=== PATIENT | female | born 1950 | race Caucasian/White ===

== ENCOUNTER 2019-06-08 09:14 | Observation (INO) | payer MEDICARE, MEDICAID, SELFPAY ==
[2019-06-01 10:05] VITALS: BMI 32.2
--- NOTE | 2019-06-01 10:39 | ECG_ITS ---
Measurements Intervals [place] Rate: 96 P: 36 CA: 152 QRS: -4 QRSD: 86 T: 79 QT: 356 QTc: 450 SINUS RHYTHM POSSIBLE ANTERIOR MYOCARDIAL INFARCTION [30 ms Q WAVE IN V3/V4, OR R < 0.2 mV IN V4], OF INDETERMINATE AGE INFERIOR MYOCARDIAL INFARCTION [40+ ms Q WAVE AND/OR ST/T ABNORMALITY IN II/aVF], PROBABLY OLD Compared to ECG 11/26/2018 20:53:25 Sinus tachycardia no longer present Myocardial infarct finding still present Electronically Signed On 06-01-2019 21:00:25 MATERIALS PLANNING MANAGER by Carie Lucio M.D. [id number]
--- NOTE | 2019-06-01 11:04 | ANES.PREANE2 ---
Pre-Anesthetic Assessment Pre-Anesthetic Assessment: Height/Weight: Height 1.63 m Weight 85.275 kg Preop Diagnosis: left knee end stage DJD Proposed Procedure: Operation Date: 06/08/19 07:00 Proposed Procedures p Total Knee Arthroplasty 94256 M17.12(Left) - Clyde Carvajal MD Social: Packs per day: 1.5 Pack years: 75 Comment: quit 10 y Exam: Pre-Anes Outpt Exam: alert, oriented x 3, clear to auscultation bilaterally and regular rate & rhythm Airway: Submandibular: WNL Cervical ROM: Other MP: 3 Dentition: False Additional comments: very limited NE CV/HEM: CV/HEM: CAD Comments: s/p stent '17 GI: GI: GERD Metabolic: Metabolic: Thyroid Comments: x 10y rx'd for DM x 10y, normally 150-200 Musc/skel: Musc/skel: Lower Back Pain Neuropsych: Neuropsych: GATICA Anesthetic Plan: ASA status: III Anesthesia: General and Regional (specify below) Other: left adductor canal block Data Anesthesia Cardiac Studies: No Data to Display
[2019-06-01 11:09] LABS: Anion Gap 19.1 (5-19); Blood Urea Nitrogen 14 mg/dL (8-23); Carbon Dioxide 26 mmol/L (22-29); Chloride 91 mmol/L (98-107); Glomerular Filtration Rate 54.8 mL/min (90-130); Glucose 346 mg/dL (74-106); Osmolality Calculated 284 mOsm/kg (285-295); Potassium 4.1 mmol/L (3.5-5.1); Sodium 132 mmol/L (136-145)
--- NOTE | 2019-06-07 14:34 | P.HPUD_ITS ---
H&P update H&P Update: DATE OF SURGERY/PROCEDURE: 06/08/19 DATE H&P PERFORMED: 02/15 PREOP DIAGNOSIS: left knee end stage DJD PLANNED PROCEDURE: Operation Date: 06/08/19 07:00 Proposed Procedures p Total Knee Arthroplasty 05983 M17.12(Left) - Clyde Carvajal MD Full H&P HPI: PLANNED PROCEDURE: L TKA HPI: 69 yo with OA left knee. Has failed conservative measures including medications and injections. Pain limits activity. Forced to hold on to objcts around house for stability. Scheduled for elective Left Total Knee Arthroplasty ROS: ROS: No chest pain, SOB or palpitations No dysuria or pyuria No history atypical bleeding or DVT/PE Perinent History: Medical/Surgical History: CAD s/p stent placement 2017 DM GERD Family History: Non contributory Pertinent Exam Findings: PHYSICAL EXAM: alert, oriented x 3 and operative site marked OTHER PERTINENT EXAM FINDINGS: Heart: nl heart sounds Chest: CTA ABdomen: Soft NT Left knee painful ROM. Tender medial joint No distal left neurovascular deficits noted Pertinent Data: PERTINENT DATA: MRI from Apr 08, 2019 with predominantly degenerative change. A&P Assessment and plan (1) Osteoarthritis of left knee: Procede with left total knee as scheduled Status: Acute Code(s): M17.12 - Unilateral primary osteoarthritis, left knee (2) Diabetes: Manage insulin with sliding scale untll ready for discharge Status: Acute Code(s): E11.9 - Type 2 diabetes mellitus without complications (3) Coronary artery disease: Status: Acute Code(s): I25.10 - Atherosclerotic heart disease of [place] coronary artery without angina pectoris (4) Chronic narcotic use: With history of Eleanor use anticipate some dificulty with pain control Status: Acute Code(s): F11.90 - Opioid use, unspecified, uncomplicated
[2019-06-08] VITALS (28 sets, daily range): BP systolic 105–168; BP diastolic 64–115; PULSE 72–107; RESP 12–20; TEMP 36.4–37.2; O2SAT 91–98
[2019-06-08 05:50] LABS: Glucose Point of Care 215 mg/dL (70-110)
--- NOTE | 2019-06-08 05:56 | P.ANESUD_ITS ---
Pre-Anesthetic Update Pre-Anesthetic Assessment: Date of Surgery/Procedure: 06/08/19 Preop Janessa gnosis: left knee end stage DJD Proposed Procedure: Operation Date: 06/08/19 07:00 Proposed Procedures p Total Knee Arthroplasty 07731 M17.12(Left) - Clyde Carvajal MD Last Intake: Intake Last Liquid Date 06/07/19 Last Liquid Time 20:00 Last Solid Date 06/07/19 Last Solid Time 18:00 Labs Last 48hrs: Laboratory Results - last 48 hr 06/08/19 05:43 POC Glucose 215 Vitals: Temperature 98.9 F 06/08/19 05:35 Temperature Source Temporal Artery S can 06/08/19 05:35 Pulse Rate 88 06/08/19 05:35 Respiratory Rate 18 06/08/19 05:35 Blood Pressure 168/88 06/08/19 05:35 Blood Pressure [place] n 114 06/08/19 05:35 Pulse Oximetry 98 06/08/19 05:35 Oxygen Delivery Me thod 06/08/19 05:35 Cardiac Studies: No Data to Display
[2019-06-08] MEDS: sodium chloride 0.9% 1,000 ML 30 ML IV (06:05)
[2019-06-08] MEDS: midazolam 1 mg/mL INJ 5 ML 5 MG IVP (06:10)
[2019-06-08] MEDS: fentaNYL 50 mcg/mL INJ 2mL 100 MCG IVP (06:10)
--- NOTE | 2019-06-08 06:14 | ANES.PROC ---
Anesthesia Procedures Procedure/Date: 06/08/19 Nerve Block ^: Nerve Block 1: Main Anesthesia: general anesthesia Time Out Performed: Yes Consent: requested by attending/covering physician, risks and benefits reviewed and patient agrees to proceed Nerve block location: adductor canal (left) Anesthesia monitors applied: pulse oximetry, EKG, BP cuff and oxygen Nerve block position: supine Anesthetic Used: ropivicaine 0.5% and with decadron (4 mg) Amount of anesthesia used (mL): 30 Ultrasound used to: recognize landmarks Nerve Stimulator Used?: No Interscalene/Femoral BLK: 4 stimuplex 21 g needle used for position and inplane approach, visualize local anesthetic spread and no vascular puncture identified Injection: neg aspiration of heme and paresthesia +/- (neg) Patient Tolerated Procedure: well and no complications Complications: none
[2019-06-08] MEDS: ketorolac 30 mg/mL INJ IM (07:55)
[2019-06-08] MEDS: EPINEPHrine 1 mg/mL INJ XX (07:55)
[2019-06-08] MEDS: tranexamic acid 1,000 mg/10mL SDV 2000 MG IRRIGATION (07:57)
--- NOTE | 2019-06-08 08:33 | PM.OP ---
Operative Report Date of procedure: June 08, 2019 Pre-op Diagnosis: left knee end stage DJD Post-op diagnosis: same Post-op Findings: Same Procedure Done: Left total knee arthroplasty Implants: Yinka total knee arthroplasty components were used includin) Size 2 triathalon cruciate retaining femoral component 2) Size 2 Tritanium tibial component 3) 29 mm /9 mm thickness Tritanium asymetric patella 4) Size 2/9 mm thickness CR tibial bearing insert Pathology: none sent Surgeon: Clyde Carvajal Anesthesia: General and Nerve Block (Interscalene) Estimated blood loss (mL): 200 Tourniquet time (min): 27 Complications: None Findings: The patient had eburnated exposed subchondral bone over the medial femoral condyle and patella Condition: stable Disposition: PACU Brief History: See history and physical Procedure: The patient was taken to the operating room. Patient was given 1 g of tranexamic acid . The above anesthesia provided by the anesthesia service. A timeout was performed. The patient was prepped and draped in the usual fashion with the lower extremity exposed. A anterior incision was made, midline, from a point proximal to the patella to the distal tibial tubercle. Dissection was accomplished through the subcutaneous fat to the extensor mechanism. The vastus medialis oblique is musculature was elevated with a retractor and a capsular incision made from the medial patella along the patellar tendon up into the superior capsule. The patella could be displaced laterally and the knee flexed. The patellar fat pad was resected to provide better visibility. Retractors were placed medially and laterally adjacent to the tibial plateau. The femoral canal was drilled in line with the longitudinal axis of the femur. Intramedullary femoral guide for used to make a distal femoral cut in 5 degrees of valgus, resecting 8 mm from the more prominent condyle. Next the extra medullary tibial guide was placed in alignment with the longitudinal axis of the tibia. The cutting guides were set to remove just over 9 mm from the high tibial plateau. The proximal tibia was then cut. The femoral measuring guide was then placed over the distal femur. Rotation was verified checking the relationship of the guide to the condyle and the trochlear groove. The femur was measured and cut for the desired femoral component. The desired tibial baseplate was then chosen. A trial reduction with the femur tibial baseplate and polyethylene was done, assuring that the knee was stable throughout full motion. Ligament balancing involved release of nothing more than the deep medial collateral.The tibia was prepared for the tibial baseplate. Patellar thickness was then measured. The patella was cut removing articular cartilage and prepared for appropriate size patellar button. All surfaces were cleaned with pulsatile lavage. The femur tibia and patella were then press-fit into place. The posterior capsule and collateral ligaments were then injected with a solution of 100 mL of 0.2% ropivacaine, 1 mL of a 1:1000 epinephrine solution, and 30 mg of Toradol. Final polyethylene component was then snapped into place into the tibia. 2 grams of tranexamic acid were applied to the wound. The tourniquet was deflated. The tranxanemic acid was left contact with the knee for 5 minutes before the knee was irrigated with saline. The extensor retinaculum was closed with 1 Ethibond. The subcutaneous tissues were closed with 2-0 Vicryl and the skin was closed with skin vickey. A compressive dressing was applied. The patient was taken to recovery room in stable condition.
--- NOTE | 2019-06-08 08:49 | XR_ITS ---
WS: [id number] Left knee, AP and lateral, 06/08/2019 Clinical Data: L TKA Comparison: Left knee, 04/21/2019 Findings: A total knee arthroplasty has been performed. The components are in good position. There are anterior vickey from surgery. There is subcutaneous air from the surgery. XR/XR knee LT 1-2V 42174 Impression: Left total knee arthroplasty.
[2019-06-08] MEDS: fentaNYL 50 mcg/mL INJ 2mL IVP ×2 (09:03→09:08)
--- NOTE | 2019-06-08 09:15 | SUR.PHASEI ---
0915 PT HAS SENSATION/MOVEMENT TO L. FOOT, PEDAL PULSE PALPATED, CAP REFILL <3 SEC, FIRST ICE APPLIED
[2019-06-08] MEDS: oxyCODONE 5 mg IR Tab/Cap 10 MG PO ×4 (09:49→21:58)
[2019-06-08] MEDS: isosorbide mononitrate ER 60 mg Tablet PO ×2 (09:50→17:29)
[2019-06-08] MEDS: sennosides-docusate Tablet 2 TAB PO ×2 (09:50→17:29)
[2019-06-08] MEDS: CELEcoxib 200 mg Capsule PO ×2 (09:50→21:58)
[2019-06-08] MEDS: clopidogrel 75 mg Tablet PO (09:51)
[2019-06-08] MEDS: venlafaxine ER (24HR) 150 mg Capsule PO (09:51)
[2019-06-08] MEDS: aspirin 325 mg EC Tablet PO (09:51)
[2019-06-08] MEDS: allopurinol 100 mg Tablet PO (09:51)
[2019-06-08] MEDS: levothyroxine 125 mcg Tablet PO (09:52)
[2019-06-08] MEDS: chlorhexidine gluconate 0.12% Btl 473 mL 30 ML MUCOUS MEM ×4 (09:55→21:59)
[2019-06-08 09:58] LABS: Glucose Point of Care 266 mg/dL (70-110)
[2019-06-08] MEDS: sodium chloride 0.9% 1,000 ML 100 ML IV ×2 (09:58→15:22)
--- NOTE | 2019-06-08 11:07 | PC.NURSE ---
Transfer Patient arrived to unit at approximately 0945. Upon assessment, patient was resting with operative leg bent in bed. Nurse educated patient on the importance of keeping her leg straight. Patient verbalized understanding and straightened leg. Patient currently rates pain 9/10. Surgical incision asymptomatic. Nurse to continue to monitor.
[2019-06-08] MEDS: pantoprazole DR 40 mg Tablet PO (12:06)
[2019-06-08] MEDS: morphine 4 mg/mL SDV 1 mL IVP (12:08)
[2019-06-08 17:15] LABS: Glucose Point of Care 348 mg/dL (70-110)
[2019-06-08 20:39] LABS: Glucose Point of Care 297 mg/dL (70-110)
[2019-06-08] MEDS: amitriptyline 25 mg Tablet 75 MG PO (21:58)
[2019-06-08] MEDS: trazodone 150 mg Tablet PO (21:58)
[2019-06-09] VITALS (11 sets, daily range): BP systolic 120–136; BP diastolic 66–76; PULSE 87–91; RESP 14–20; TEMP 36.6–36.7; O2SAT 91–98
[2019-06-09] MEDS: sodium chloride 0.9% 1,000 ML 100 ML IV (01:21)
[2019-06-09] MEDS: oxyCODONE 5 mg IR Tab/Cap 10 MG PO ×2 (06:02→10:21)
[2019-06-09 06:10] LABS: Basophils % 0.3 %; Hematocrit 29.9 % (37.0-47.0); Hemoglobin 9.9 g/dL (11.5-15.3); Lymphocytes # 1.9 10^3/uL (0.8-4.8); Lymphocytes % 23.6 %; Mean Corpuscular HGB Conc 33.1 g/dL (30.0-36.0); Mean Corpuscular Hemoglobin 28.1 pg (28.0-34.0); Mean Corpuscular Volume 84.9 fL (81-99); Mean Platelet Volume 10.2 fL (7.4-10.4); Monocytes # 0.5 10^3/uL (0.2-0.9); Monocytes % 5.8 %; Neutrophils # 5.5 10^3/uL (1.8-7.7); Nucleated Red Blood Cells % 0 %; Platelet Count 181 10^3/cmm (130-400); Red Blood Count 3.52 10^6/uL (4.1-5.3); Red Cell Distribution Width 13.6 % (12.1-15.1); White Blood Count 7.9 10^3/uL (4.0-10.0)
[2019-06-09 06:38] LABS: Anion Gap 17.2 (5-19); Blood Urea Nitrogen 13 mg/dL (8-23); Calcium 8.7 mg/dL (8.5-10.5); Carbon Dioxide 24 mmol/L (22-29); Chloride 102 mmol/L (98-107); Glomerular Filtration Rate 61.9 mL/min (90-130); Glucose 223 mg/dL (65-115); Osmolality Calculated 291 mOsm/kg (285-295); Potassium 4.2 mmol/L (3.5-5.1); Sodium 139 mmol/L (136-145)
[2019-06-09 07:09] LABS: Glucose Point of Care 218 mg/dL (70-110)
[2019-06-09] MEDS: levothyroxine 125 mcg Tablet PO (07:52)
[2019-06-09] MEDS: allopurinol 100 mg Tablet PO (07:52)
[2019-06-09] MEDS: pantoprazole DR 40 mg Tablet PO (07:52)
[2019-06-09] MEDS: sennosides-docusate Tablet 2 TAB PO (07:53)
[2019-06-09] MEDS: aspirin 325 mg EC Tablet PO (07:53)
[2019-06-09] MEDS: CELEcoxib 200 mg Capsule PO (07:53)
[2019-06-09] MEDS: isosorbide mononitrate ER 60 mg Tablet PO (07:53)
[2019-06-09] MEDS: clopidogrel 75 mg Tablet PO (07:54)
[2019-06-09] MEDS: venlafaxine ER (24HR) 150 mg Capsule PO (07:54)
[2019-06-09] MEDS: chlorhexidine gluconate 0.12% Btl 473 mL 30 ML MUCOUS MEM ×2 (07:55→12:29)
[2019-06-09 12:03] LABS: Glucose Point of Care 278 mg/dL (70-110)
[2019-06-09] MEDS: morphine 4 mg/mL SDV 1 mL IVP (12:24)
--- NOTE | 2019-06-09 13:10 | PC.CHAP ---
Pastoral Care Encounter/Spiritual Assessment Type of Contact [] Declined heat treating operator visit [] Patient/Family/Request visit [] Outpatient visit [] Follow-up visit [] Physician referral [] Code/Alert [x] Routine visit [] Staff referral [] Actively dying [] Patient sleeping [] Family support [] [] Out of room [] Palliative care [] [] Receiving care in room [] Pre-surgical visit [] Trauma [] Long length of stay [] ICU visit [] Other: Relational/Emotional Strength [x] Patient feels connected with others/family/visitors/staff [] Distress [] Loneliness/isolation [] Abandonment Spirituality of Patient [x] Person of Cornelia [x] Attends Quaker of their [place] [x] Believes in Prayer [] Reads Bible or Rastafari materials [] There are Spiritual issues to be addressed Cro Interventions [x] Prayer [x] Active listening [x] Non-anxious presence [] Spiritual/emotional support [] Crisis/trauma care [] Spiritual counseling [] Bereavement support [] Provided bereavement packet [] Provided Bible/devotional materials [] Provided toy/stuffed animal, coloring book to patient or family member [] Provided Communion [] Anointing/[place] [] Salvation [] Completed spiritual assessment [] Other: Impact on Illness or Injury [] Angry [] Fearful [] Anxious [] Often cries [] Exhaustion [] Unable to work [] Unable to attend zoroastrianism [] Unable to walk/stand [] Unable to read [] Unable to drive [] Unable to eat/drink [] Unable to sleep [] Unable to be with family [] Patient intubated [] Other: Summary patient doing good going home today Time spent with patient 10 min
--- NOTE | 2019-06-09 16:05 | PM.DCS ---
Discharge Providers Date of Admission: 06/08/19 09:14 Date of Discharge: June 09, 2019 Attending Provider at Admission: Clyde Carvajal MD Attending Provider at Discharge: Clyde Carvajal MD Primary Care Provider: Xavier Jim Diagnoses at Discharge Discharge Diagnosis (1) Osteoarthritis of left knee: Status: Resolved (2) Diabetes: Status: Acute (3) Coronary artery disease: Status: Acute (4) Chronic narcotic use: Status: Acute Reason for Visit Reason for Visit: Reason For Visit: Left Total knee arthoplasty Hospital Course Hospital Course: The patient was underwent elective left total knee arthroplasty on 06/08/2019 and did well. By 06/09/2019 her pain was controlled with oral medications. She was independent with her walker including steps. Her dressing was changed and her incision was free and clean and drainage. There was minimal minimal knee and calf swelling. Swelling. He remained hemodynamically stable throughout her hospitalization. She was managed with aspirin and foot pumps for DVT prophylaxis. Physical Exam Narrative: EXAM NARRATIVE: On the day of discharge, 06/09/2019 her incision was clean and free of drainage. She had minimal swelling in her thigh and calf. Urinary Catheter Management^: Curtis: Cath Placed During This Visit: yes, but has since been removed by the nurse Reason for Continuing Indwelling Catheter: Decision to DC Catheter Urinary Catheter Date of Insertion: 06/08/19 Urinary Catheter Time of Insertion: 07:20 Date Urinary Catheter Removed: 06/09/19 Time Urinary Catheter Discontinued: 06:00 Discharge Data Data Completed and Pending: Completed Studies During Hospitalization Category Date Time Status XR knee LT 1-2V 7 3560 Routine Exams 06/08/19 08:49 Completed Pending at discharge Category Date Time Status Complete Blood Co unt w/Auto AM LABS Lab 06/10/19 04:00 Ordered Complete Blood Co unt w/Auto AM LABS Lab 06/11/19 04:00 Ordered Labs from last 24 hours 06/09/19 06/09/19 06/09/19 11:45 06:47 05:05 WBC RBC Hgb Hct MCV MCH MCHC RDW Plt Count MPV Neut % (Auto) Lymph % (Auto) [place] % (Auto) Eos % (Auto) Baso % (Auto) Neut # (Auto) Lymph # (Auto) [place] # (Auto) Eos # (Auto) Baso # (Auto) Nucleated RBC % (a uto) Nucleated RBCs # Sodium 139 Potassium 4.2 Chloride 102 Carbon Dioxide 24 Anion Gap 17.2 BUN 13 Creatinine 0.9 GFR Calculation 61.9 L Glucose 223 H POC Glucose 278 218 Calculated Osmolal ity 291 Calcium 8.7 06/09/19 06/08/19 06/08/19 05:05 20:32 16:59 WBC 7.9 RBC 3.52 L Hgb 9.9 L Hct 29.9 L MCV 84.9 MCH 28.1 MCHC 33.1 RDW 13.6 Plt Count 181 MPV 10.2 Neut % (Auto) 70.0 Lymph % (Auto) 23.6 [place] % (Auto) 5.8 Eos % (Auto) 0.0 Baso % (Auto) 0.3 Neut # (Auto) 5.5 Lymph # (Auto) 1.9 [place] # (Auto) 0.5 Eos # (Auto) 0.0 Baso # (Auto) 0.0 Nucleated RBC % (a uto) 0 Nucleated RBCs # 0.0 Sodium Potassium Chloride Carbon Dioxide Anion Gap BUN Creatinine GFR Calculation Glucose POC Glucose 297 348 Calculated Osmolal ity Calcium Vitals: Last Vital Signs Temp 98.0 F 06/09/19 15:48 Pulse 91 06/09/19 15:48 Resp 18 06/09/19 15:48 BP 124/73 06/09/19 15:48 Pulse Ox 91 06/09/19 15:48 Discharge Plan Discharge Patient Disposition: Home, Self-Care Condition: Stable Prescriptions: New aspirin 325 mg Tablet,Delayed Release (Dr/Ec) 325 mg PO DAILY Qty: 30 RF: 0 oxycodone 5 mg tablet 5 mg PO Q4H PRN (Reason: pain) Qty: 40 RF: 0 Continued mupirocin 2 % ointment 1 applic TOPICAL BID Qty: 30 RF: 0 cetirizine 10 mg tablet 10 mg PO DAILY PRN (Reason: Allergy Symptoms) RF: 0 amitriptyline 75 mg tablet 75 mg PO BEDTIME RF: 0 meloxicam 15 mg tablet 15 mg PO DAILY RF: 0 venlafaxine 150 mg capsule,extended release 24hr 150 mg PO DAILY RF: 0 clopidogrel 75 mg tablet 75 mg PO DAILY RF: 0 allopurinol 100 mg tablet 100 mg PO DAILY PRN (Reason: Pain) RF: 0 hydrocodone-acetaminophen 10-325 mg tablet 10 - 325 tab PO 5XD PRN (Reason: Pain) RF: 0 isosorbide mononitrate 60 mg tablet extended release 24 hr 60 mg PO BID RF: 0 trazodone 150 mg tablet 150 mg PO BEDTIME RF: 0 levothyroxine 125 mcg tablet 125 mcg PO DAILY RF: 0 omeprazole 20 mg capsule,delayed release(DR/EC) 20 mg PO DAILY RF: 0 ezetimibe-simvastatin 10-40 mg tablet 10 - 40 tab PO BEDTIME RF: 0 Tresiba FlexTouch U-100 100 unit/mL (3 mL) insulin pen 75 unit SUBCUT DAILY RF: 0 Discharge Orders: Discharge Order (Routine); Ordered 06/09/19 Ordered By: Clyde Carvajal Referrals: [facility] ([facility]) [Outside] Clyde Carvajal MD [Physician] - 06/22/19 1:15 pm Discharge Diet: Advance as tolerated Discharge Activity: Use walker/crutches as instructed Patient Instructions: Type 2 Diabetes, Diabetes and Diet, Oxycodone/Acetaminophen (By mouth), Aspirin (By mouth), Coronary Artery Disease (DC), Osteoarthritis (DC), Surgical Site Infections (GEN) Activity Restrictions/Additional Instructions: May shower once incisions completely free of drainage. Replaced dressings as needed for drainage.. Take Celebrex twice a day for the next 15 days, discontinue other anti-inflammatories Take oxycodone for breakthrough pain. Exercises per physical therapy. Ice and elevate knees as needed for pain and swelling.. 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
--- NOTE | 2019-06-09 16:35 | PC.NURSE ---
Discharge information given per physician's orders. Patient verbalized understanding and did not have any further questions.
== END 2019-06-09 16:30 | disposition home or self-care (01) ==
LOC: MEDSURG 09:17
PROVIDERS: Admitting Provider Orthopaedic Surgery; Family Provider Family Medicine; PCP Family Medicine; Visit Provider Orthopaedic Surgery
PROC: (CPT 27447; principal; 2019-06-08 07:00)
DX: M17.12 Unilateral primary osteoarthritis, left knee (principal); E11.9 Type 2 diabetes mellitus without complications; I25.10 Atherosclerotic heart disease of native coronary artery without angina pectoris; Z79.891 Long term (current) use of opiate analgesic; Z87.891 Personal history of nicotine dependence; K21.9 Gastro-esophageal reflux disease without esophagitis
CPT/HCPCS: 27447; 12345; 36415; 36416; 51702; 73560; 80048; 82962; 85025; 93005; 96360; 96361; 96365; 96372; 96374; 96375; 97110; 97116; 97161; 97166; C1776; G0378; J0131; J0171; J0690; J1100; J1580; J1815; J1885; J2001; J2250; J2270; J2405; J2704; J2710; J2795; J3010; J3490; J7030

== ENCOUNTER → 2019-07-21 09:54 | Outpatient (BNVA) | payer MEDICARE, MEDICAID, SELFPAY | PROVIDERS: Family Provider Family Medicine; PCP Family Medicine; Visit Provider Orthopaedic Surgery | DX: Z48.89 Encounter for other specified surgical aftercare (principal); Z96.652 Presence of left artificial knee joint | CPT/HCPCS: 73560; 73565 ==

== ENCOUNTER → 2020-09-13 09:43 | Outpatient (BNVA) | payer MEDICARE, MEDICAID, SELFPAY | PROVIDERS: Family Provider Family Medicine; PCP Family Medicine; Visit Provider Internal Medicine Rheumatology | DX: M05.79 Rheumatoid arthritis with rheumatoid factor of multiple sites without organ or systems involvement (principal); R76.8 Other specified abnormal immunological findings in serum; Z79.899 Other long term (current) drug therapy; Z11.59 Encounter for screening for other viral diseases; Z11.1 Encounter for screening for respiratory tuberculosis; E11.42 Type 2 diabetes mellitus with diabetic polyneuropathy; Z79.4 Long term (current) use of insulin; Z87.891 Personal history of nicotine dependence | CPT/HCPCS: 99204 ==

== ENCOUNTER → 2020-10-11 08:40 | Outpatient (BNVA) | payer MEDICARE, MEDICAID, SELFPAY | PROVIDERS: Family Provider Family Medicine; PCP Family Medicine; Visit Provider Internal Medicine Rheumatology | DX: M19.90 Unspecified osteoarthritis, unspecified site (principal); Z79.899 Other long term (current) drug therapy; Z11.59 Encounter for screening for other viral diseases; R76.8 Other specified abnormal immunological findings in serum; Z11.1 Encounter for screening for respiratory tuberculosis | CPT/HCPCS: 36415; 80076; 82306; 82565; 83735; 85025; 85651; 86140; 86160; 86162; 86235; 86255; 86376; 86480; 86704; 86803; 87340 ==

== ENCOUNTER 2020-10-20 13:44 | Outpatient (CLI) | payer MEDICARE, MEDICAID, SELFPAY ==
--- NOTE | 2020-10-19 13:47 | PC.NURSE ---
NURSING NOTE WHEN REVIEWING THE PATIENT'S ORDER FOR A STRESS TEST TOMORROW, IT DID NOT APPEAR TO BE WHAT WAS SUPPOSED TO BE ORDERED. THIS NURSE SPOKE TO DR MCKEON IN PERSON AND NEW ORDERS WERE RECEIVED TO CANCEL THE TREADMILL STRESS TEST AND ORDER A LEXISCAN SESTAMIBI STRESS TEST. SUSAN, IN SCHEDULING, WAS CALLED AND THE PATIENT REQUIRES AN INSURANCE PRE-CERTIFICATION FOR THE CHANGE IN TESTS. SUSAN STATED THAT SHE WOULD CALL THE PATIENT AND RESCHEDULE ONCE THE INSURANCE APPROVAL WENT THROUGH. THE PATIENT STILL HAS AN ECHOCARDIOGRAM SCHEDULED FOR TOMORROW, Saturday. DR MCKEON'S NURSE WAS ALSO NOTIFIED.
--- NOTE | 2020-10-20 14:15 | USCV_ITS ---
Bisi Anderson Age: 70 Gender: F : 1950 Exam Date: 10/20/2020 14:20 Ordering Phys: Brad Real MD ([email or web address]) Technologist: PACO Exam Location: [facility] [place] Indication: Shortness of breath BP: 130 / HR: 87 Rhythm: Sinus Technical Quality: Fair MEASUREMENTS (Male / Female) Normal Values 2D ECHO LV Diastolic Diameter PLAX 2.7 cm 4.2 - 5.9 / 3.9 - 5.3 cm LV Systolic Diameter PLAX 2.0 cm LV Chamber Size 3.3 cm IVS Diastolic Thickness 1.9 cm 0.6 - 1.0 / 0.6 - 0.9 cm IVS Systolic Thickness 2.1 cm LVPW Diastolic Thickness 1.2 cm 0.6 - 1.0 / 0.6 - 0.9 cm LVPW Systolic Thickness 1.7 cm RV Chamber Size 2.1 cm LVOT Diameter 1.9 cm LV Ejection Fraction 2D Teich 52.9 % LV Ejection Fraction MOD 2C 70.9 % LV Ejection Fraction 2C AL 71.8 % LA Diameter 2.6 cm LA Width 3.0 cm LA Height 4.5 cm RA Width 2.2 cm RA Height 4.6 cm Aorta at Sinotubular Diameter 2.6 cm M-MODE LV Diastolic Diameter MM 4.0 cm 4.2 - 5.9 / 3.9 - 5.3 cm LV Systolic Diameter MM 2.2 cm LV Ejection Fraction MM Teich 78.3 % IVS Diastolic Thickness MM 1.5 cm 0.6 - 1.0 / 0.6 - 0.9 cm IVS Systolic Thickness MM 1.8 cm LVPW Diastolic Thickness MM 1.5 cm 0.6 - 1.0 / 0.6 - 0.9 cm LVPW Systolic Thickness MM 1.6 cm RV Diastolic Diameter MM 0.3 cm Aortic Annulus Diameter 3.3 cm LA Ao Ratio MM 0.9 MV E Point Septal Separation 0.4 cm DOPPLER AV Peak Velocity 253.0 cm/s LVOT Peak Velocity 209.0 cm/s AV Area Cont Eq vti 2.5 cm squared AV Area Cont Eq pk 2.3 cm squared MV Peak Velocity 152.0 cm/s MV Area PHT 2.0 cm squared Mitral E to A Ratio 0.5 MV E' Velocity 44.0 cm/s Mitral E to MV E' Ratio 12.3 Mitral E to LV E' Lateral Ratio 11.1 Mitral E to LV E' Septal Ratio 14.0 TR Peak Velocity 232.0 cm/s TR Peak Gradient 21.5 mmHg TV Peak E Velocity 57.0 cm/s Right Atrial Pressure 3.0 mmHg Pulmonary Artery Systolic Pressu 24.5 mmHg PV Peak Velocity 104.0 cm/s RV Acceleration Time 0.1 s RV Ejection Time 0.2 s RV AcT/ET 0.5 FINDINGS Left Ventricle Normal left ventricular cavity size. Normal left ventricular systolic function. No regional wall motion abnormalities. Left ventricular ejection fraction is estimated at 65 %. Grade I/IV diastolic dysfunction (abnormal relaxation filling pattern), normal to mildly elevated filling pressures. Right Ventricle The right ventricle is normal in size and function. Right Atrium The right atrium is normal in size. Left Atrium The left atrium is normal in size. Mitral Valve Severely thickened mitral valve. Moderate mitral annular calcification. Mild mitral valve regurgitation. Aortic Valve Severe aortic valve calcification. Mild aortic valve stenosis, mean gradient 14.2 mmHg, JEREMIAH 2.5 cm squared. Trace aortic valve regurgitation. Tricuspid Valve Structurally normal tricuspid valve without significant stenosis or regurgitation. Pulmonary artery systolic pressure is normal. Pulmonic Valve Structurally normal pulmonic valve without significant stenosis. There is no pulmonic regurgitation. Pericardium Normal pericardium without effusion. Aorta Normal ascending aorta dimension. CONCLUSIONS 1-Normal left ventricular cavity size. Normal left ventricular systolic function. No regional wall motion abnormalities. Left ventricular ejection fraction is estimated at 65 %. Grade I/IV diastolic dysfunction (abnormal relaxation filling pattern), normal to mildly elevated filling pressures. 2-Severely thickened mitral valve. Moderate mitral annular calcification. Mild mitral valve regurgitation. 3-Severe aortic valve calcification. Mild aortic valve stenosis, mean gradient 14.2 mmHg, JEREMIAH 2.5 cm squared. Trace aortic valve regurgitation. 4-There is no pericardial effusion. 5-Pulmonary artery systolic pressure is within normal limits. 6-Right atrial pressure is around 5 mm of mercury. 7-When compared to the prior echocardiogram dated 24 Sep 2018 there appeared to be mild aortic stenosis now. Brad Real MD (Electronically Signed) Final Date: 20 October 2020 16:58 S
== END 2020-10-20 13:45 | disposition home or self-care (01) ==
PROVIDERS: PCP Family Medicine; Visit Provider Internal Medicine Cardiovascular Disease
DX: R06.02 Shortness of breath (principal); R07.9 Chest pain, unspecified; I08.0 Rheumatic disorders of both mitral and aortic valves
CPT/HCPCS: 93306

== ENCOUNTER → 2020-10-27 12:34 | Outpatient (BNVA) | payer MEDICARE, MEDICAID, SELFPAY | PROVIDERS: PCP Family Medicine; Visit Provider Internal Medicine Rheumatology | DX: M05.79 Rheumatoid arthritis with rheumatoid factor of multiple sites without organ or systems involvement (principal); R76.8 Other specified abnormal immunological findings in serum; Z79.899 Other long term (current) drug therapy; E11.42 Type 2 diabetes mellitus with diabetic polyneuropathy; Z79.4 Long term (current) use of insulin; Z71.89 Other specified counseling; Z87.891 Personal history of nicotine dependence | CPT/HCPCS: 99214 ==

== ENCOUNTER 2020-11-09 07:35 | Outpatient (CLI) | payer MEDICARE, MEDICAID, SELFPAY ==
[2020-11-09 08:03] VITALS: BMI 27.2
--- NOTE | 2020-11-09 08:04 | ECG_ITS ---
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 The perfusion scan will be documented separately. DATA: Baseline heart rate was 87 beats per minute. Baseline blood pressure was 157/99 millimeters of mercury. Target heart rate was 149. Maximum heart rate achieved was 126 . which was 84 % of the predicted target heart rate. Maximum blood pressure was 255/114 millimeters of mercury. The reason for ending the test was completion of the protocol. The patient did not experience any symptoms. ELECTROCARDIOGRAM: BASELINE: Sinus rhythm. Normal axis. Poor R wave progression in anterior leads, otherwise no ST-T changes suggestive of ischemia noted. No arrhythmia noted. EXERCISE: After Lexiscan injection, no ST-T changes suggestive of ischemic noted. No arrhythmia noted. CONCLUSION: Please note due to baseline abnormality of the EKG specificity and sensitivity of the EKG portion of LexiScan MIBI stress test will be low 1. EKG not suggestive of ischemia 2. Lexiscan injection triggered hypertensive response. 3. Perfusion scan will be documented separately. Electronically Signed On 11-17-2020 11:20:51 CDT by BRAD MCKEON [email or web address]
--- NOTE | 2020-11-09 08:06 | NMCV_ITS ---
NM wali perf SPECT r/s* [id number] Bisi Anderson Age: 70 Gender: F : 1950 Exam Date: 11/09/2020 08:54 Ordering Phys: Brad Real MD ([email or web address]) Technologist: LYNDSEY Matias Exam Location: [facility] Indications: SHORTNESS OF BREATH STRESS TEST Please [facility] for full findings IMAGE PROTOCOL Rest/Stress 1 Lexiscan Day Radiopharmaceutical Dose (mCi) Administration Site Administered by Rest: Tc-99m 10.7 IV LYNDSEY Hall Sestamibi Stress:Tc-99m 32.6 IV LYNDSEY Hall Sestamibi Rest: 09-Nov-2020 60 Discovery 630 Stress: 09-Nov-2020 30 Discovery 630 0.4mg Lexiscan. Images obtained in supine and prone position. SPECT RESULTS Technical Quality: Excellent Raw Data Analysis: Normal Image Corrections: No attenuation or motion correction applied Summed Stress Score: 0 Summed Rest Score: 0 Summed Difference Score: 0 PERFUSION FINDINGS SPECT images demonstrate homogeneous tracer distribution throughout the myocardium. FUNCTIONAL RESULTS (calculated via Gated SPECT) Stress Image LV EF (%): 73 Stress EDV (mL):62 TID: 1.06 Stress ESV (mL):17 Rest Image LV EF (%): 73 FUNCTIONAL FINDINGS: There is normal left ventricular systolic function. IMPRESSIONS Myocardial perfusion imaging is normal. EKG segment will be documented separately. Brad Real MD (Electronically Signed) Final Date: 09 November 2020 19:27 S
[2020-11-09] MEDS: regadenoson 0.4 Mg/5 ml Syringe IVP (10:37)
[2020-11-09] MEDS: ondansetron 2 mg/ML SDV 2 mL 4 MG IVP (10:37)
[2020-11-09 10:53] VITALS: BP 166/88; PULSE 103
== END 2020-11-09 07:36 | disposition home or self-care (01) ==
LOC: RAD 07:40 → CDL 08:02
PROVIDERS: PCP Family Medicine; Visit Provider Internal Medicine Cardiovascular Disease
DX: R06.02 Shortness of breath (principal)
CPT/HCPCS: 78452; 93017; A9500; J2405; J2785

== ENCOUNTER → 2020-11-15 10:04 | Outpatient (BNVA) | payer MEDICARE, MEDICAID, SELFPAY | PROVIDERS: PCP Family Medicine; Visit Provider Internal Medicine Rheumatology | DX: M05.79 Rheumatoid arthritis with rheumatoid factor of multiple sites without organ or systems involvement (principal); Z79.899 Other long term (current) drug therapy; R76.8 Other specified abnormal immunological findings in serum | CPT/HCPCS: 80076; 82565; 85025; 86140 ==

== ENCOUNTER → 2021-02-15 12:30 | Outpatient (BNVA) | payer MEDICARE, MEDICAID, SELFPAY | PROVIDERS: PCP Family Medicine; Visit Provider Internal Medicine Rheumatology | DX: M05.79 Rheumatoid arthritis with rheumatoid factor of multiple sites without organ or systems involvement (principal); M19.90 Unspecified osteoarthritis, unspecified site; Z79.899 Other long term (current) drug therapy; R76.8 Other specified abnormal immunological findings in serum; M79.7 Fibromyalgia; E11.42 Type 2 diabetes mellitus with diabetic polyneuropathy; Z79.4 Long term (current) use of insulin; I25.10 Atherosclerotic heart disease of native coronary artery without angina pectoris; I69.351 Hemiplegia and hemiparesis following cerebral infarction affecting right dominant side; Z71.89 Other specified counseling; Z87.891 Personal history of nicotine dependence | CPT/HCPCS: 80076; 82565; 85025; 86140; 86160; 86162; 86235; 86255; 86376; 99214 ==

== ENCOUNTER 2021-02-15 14:10 | Outpatient (CLI) | payer MEDICARE, MEDICAID, SELFPAY ==
[2021-02-15 14:47] LABS: Basophils % 0.6 %; Eosinophils # 0.1 10^3/uL (0.0-0.8); Eosinophils % 1.4 %; Hemoglobin 11.8 g/dL (11.5-15.3); Lymphocytes # 1.5 10^3/uL (0.8-4.8); Lymphocytes % 30.2 %; Mean Corpuscular HGB Conc 31.9 g/dL (30.0-36.0); Mean Corpuscular Hemoglobin 28.2 pg (28.0-34.0); Mean Corpuscular Volume 88.5 fl (81-99); Monocytes # 0.3 10^3/uL (0.2-0.9); Monocytes % 6.4 %; Neutrophils # 3.05 10^3/uL (1.8-7.7); Nucleated Red Blood Cells % 0 %; Platelet Count 189 10^3/cmm (130-400); Red Blood Count 4.18 10^6/uL (4.1-5.3); Red Cell Distribution Width 13.2 % (12.1-15.1)
[2021-02-15 15:21] LABS: Alanine Aminotransferase 18 U/L (0-33); Albumin Level 4.6 g/dL (3.5-5.2); Alkaline Phosphatase 62 IU/L (35-105); Aspartate Amino Transferase 17 U/L (0-32); C Reactive Protein 0.7 mg/L (0.0-4.9); Globulin 2.7 g/dL (1.3-4.6); Total Bilirubin 0.3 mg/dL (0.15-1.2); Total Protein 7.3 g/dL (6.6-8.7)
[2021-02-16 12:18] LABS: COMPLEMENT COMPONENT C3C 147 mg/dL (83-193); COMPLEMENT COMPONENT C4C 28 mg/dL (15-57)
[2021-02-17 13:33] LABS: COMPLEMENT, TOTAL (CH50) >60 U/mL (31-60)
[2021-02-20 16:03] LABS: THYROID PEROXIDASE ANTIBODIES 87 IU/mL (<9)
[2021-02-21 14:48] LABS: ANA SCREEN, IFA NEGATIVE (NEGATIVE)
[2021-02-22 21:23] LABS: CENTROMERE B ANTIBODY <1.0 NEG AI (<1.0 NEG); JO-1 ANTIBODY <1.0 NEG AI (<1.0 NEG); RNP ANTIBODY <1.0 NEG AI (<1.0 NEG); SCL-70 ANTIBODY <1.0 NEG AI (<1.0 NEG); SJOGREN'S ANTIBODY (SS-A) <1.0 NEG AI (<1.0 NEG); SM ANTIBODY <1.0 NEG AI (<1.0 NEG); SS-B <1.0 NEG AI (<1.0 NEG)
[2021-02-23 10:48] LABS: DNA AB (DS) CRITHIDIA,IFA NEGATIVE (NEGATIVE)
== END 2021-02-15 14:11 | disposition home or self-care (01) ==
LOC: LAB 14:17
PROVIDERS: PCP Family Medicine; Visit Provider Internal Medicine Rheumatology
DX: M05.79 Rheumatoid arthritis with rheumatoid factor of multiple sites without organ or systems involvement (principal); Z79.899 Other long term (current) drug therapy; R76.8 Other specified abnormal immunological findings in serum
CPT/HCPCS: 80076; 82565; 85025; 86140; 86160; 86162; 86235; 86255; 86376

== ENCOUNTER → 2021-03-06 08:36 | Outpatient (BNVA) | payer MEDICARE, MEDICAID, SELFPAY | PROVIDERS: PCP Family Medicine; Referring Provider Family Medicine; Visit Provider Anesthesiology Pain Medicine | DX: G89.29 Other chronic pain (principal); M51.16 Intervertebral disc disorders with radiculopathy, lumbar region; M48.062 Spinal stenosis, lumbar region with neurogenic claudication; M47.816 Spondylosis without myelopathy or radiculopathy, lumbar region; M79.604 Pain in right leg; Z79.891 Long term (current) use of opiate analgesic | CPT/HCPCS: 99205 ==

== ENCOUNTER → 2021-03-28 13:04 | Outpatient (BNVA) | payer MEDICARE, MEDICAID, SELFPAY | PROVIDERS: PCP Family Medicine; Visit Provider Anesthesiology Pain Medicine | DX: Z01.812 Encounter for preprocedural laboratory examination (principal); E11.9 Type 2 diabetes mellitus without complications; M54.16 Radiculopathy, lumbar region; M48.062 Spinal stenosis, lumbar region with neurogenic claudication; Z79.891 Long term (current) use of opiate analgesic | CPT/HCPCS: 36416; 64483; 64484; 82962; J1100; J3490 ==

== ENCOUNTER → 2021-04-11 09:59 | Outpatient (BNVA) | payer MEDICARE, MEDICAID, SELFPAY | PROVIDERS: PCP Family Medicine; Visit Provider Anesthesiology Pain Medicine | DX: M48.062 Spinal stenosis, lumbar region with neurogenic claudication (principal); M51.16 Intervertebral disc disorders with radiculopathy, lumbar region; M47.816 Spondylosis without myelopathy or radiculopathy, lumbar region; M79.604 Pain in right leg; Z79.899 Other long term (current) drug therapy; Z79.891 Long term (current) use of opiate analgesic; Z87.891 Personal history of nicotine dependence | CPT/HCPCS: 99214 ==

== ENCOUNTER → 2021-05-02 13:26 | Outpatient (BNVA) | payer MEDICARE, MEDICAID, SELFPAY | PROVIDERS: PCP Family Medicine; Visit Provider Anesthesiology Pain Medicine | DX: M47.816 Spondylosis without myelopathy or radiculopathy, lumbar region (principal); M48.062 Spinal stenosis, lumbar region with neurogenic claudication; Z79.891 Long term (current) use of opiate analgesic | CPT/HCPCS: 64493; 64494; 64495; J3490 ==

== ENCOUNTER → 2021-05-16 08:50 | Outpatient (BNVA) | payer MEDICARE, MEDICAID, SELFPAY | PROVIDERS: PCP Family Medicine; Visit Provider Anesthesiology Pain Medicine | DX: M48.062 Spinal stenosis, lumbar region with neurogenic claudication (principal); M51.16 Intervertebral disc disorders with radiculopathy, lumbar region; M47.816 Spondylosis without myelopathy or radiculopathy, lumbar region; M79.604 Pain in right leg; Z79.899 Other long term (current) drug therapy; Z79.891 Long term (current) use of opiate analgesic; Z87.891 Personal history of nicotine dependence | CPT/HCPCS: 99214 ==

== ENCOUNTER → 2021-06-08 10:34 | Outpatient (BNVA) | payer MEDICARE, MEDICAID, SELFPAY | PROVIDERS: PCP Family Medicine; Visit Provider Internal Medicine Rheumatology | DX: M05.79 Rheumatoid arthritis with rheumatoid factor of multiple sites without organ or systems involvement (principal); R76.8 Other specified abnormal immunological findings in serum; Z79.899 Other long term (current) drug therapy; I25.10 Atherosclerotic heart disease of native coronary artery without angina pectoris; E11.42 Type 2 diabetes mellitus with diabetic polyneuropathy; Z79.4 Long term (current) use of insulin; Z86.73 Personal history of transient ischemic attack (TIA), and cerebral infarction without residual deficits; Z71.89 Other specified counseling | CPT/HCPCS: 99214 ==

== ENCOUNTER → 2021-09-27 11:15 | Outpatient (BNVA) | payer MEDICARE, MEDICAID, SELFPAY | PROVIDERS: PCP Family Medicine; Visit Provider Internal Medicine Rheumatology | DX: M05.79 Rheumatoid arthritis with rheumatoid factor of multiple sites without organ or systems involvement (principal); R76.8 Other specified abnormal immunological findings in serum; Z79.899 Other long term (current) drug therapy; I25.10 Atherosclerotic heart disease of native coronary artery without angina pectoris; Z86.73 Personal history of transient ischemic attack (TIA), and cerebral infarction without residual deficits; Z71.89 Other specified counseling | CPT/HCPCS: 99214 ==

== ENCOUNTER 2022-01-18 09:17 | Outpatient (CLI) | payer MEDICARE, MEDICAID, SELFPAY ==
--- NOTE | 2022-01-18 09:28 | US_ITS ---
WS: [id number] ULTRASOUND ABDOMEN LIMITED CLINICAL INFORMATION: SPLENIC ARTERY ANEURYSM COMPARISON: CTA FINDINGS: Spleen Splenomegaly: Mild Craniocaudal length: 14.6 cm. LEFT kidney: Normal. Hydronephrosis: None. Size: 9.7 cm x 3.9 cm x 4.9 cm. US/US abdomen limited [id number] IMPRESSION: 1. Mild splenomegaly. Dilated vessel at the splenic hilum measuring 1.4 x 0.8 cm may represent previously described splenic artery aneurysm seen on the CTA 1 but indeterminant. This would be better evaluated with CTA abdomen pel vis for direct comparison and better anatomic detail to assess change. 2. No hydronephrosis in LEFT kidney.
== END 2022-01-18 09:18 | disposition home or self-care (01) ==
PROVIDERS: PCP Family Medicine; Visit Provider Family Medicine
DX: I72.8 Aneurysm of other specified arteries (principal); R16.1 Splenomegaly, not elsewhere classified
CPT/HCPCS: 76705

== ENCOUNTER 2022-01-23 11:39 | Emergency (ER) | payer MEDICARE, MEDICAID, SELFPAY ==
[2022-01-23] MEDS: dextrose 50% syringe 50 mL IVP (11:34)
[2022-01-23 11:40] VITALS: BP 150/94; PULSE 92; RESP 22; TEMP 36.8; O2SAT 95; BMI 30.2
[2022-01-23 11:46] LABS: Glucose Point of Care 69 mg/dL (70-110)
[2022-01-23 11:46] LABS: Glucose Point of Care 34 mg/dL (70-110)
[2022-01-23] MEDS: dextrose 10% 1,000 ML 75 ML IV (11:49)
[2022-01-23 11:58] LABS: Basophils # 0.1 10^3/uL (0.0-0.1); Basophils % 0.4 %; Eosinophils # 0.1 10^3/uL (0.0-0.8); Eosinophils % 0.7 %; Hematocrit 34.8 % (37.0-47.0); Hemoglobin 10.6 g/dL (11.5-15.3); Lymphocytes # 3.5 10^3/uL (0.8-4.8); Mean Corpuscular HGB Conc 30.5 g/dL (30.0-36.0); Mean Corpuscular Hemoglobin 28.2 pg (28.0-34.0); Mean Corpuscular Volume 92.6 fl (81-99); Mean Platelet Volume 10.7 fL (7.4-10.4); Monocytes # 0.9 10^3/uL (0.2-0.9); Monocytes % 7.7 %; Neutrophils # 6.79 10^3/uL (1.8-7.7); Neutrophils % 59.8 %; Nucleated Red Blood Cells % 0 %; Platelet Count 205 10^3/cmm (130-400); Red Blood Count 3.76 10^6/uL (4.1-5.3); Red Cell Distribution Width 15.9 % (12.1-15.1); White Blood Count 11.4 10^3/uL (4.0-10.0)
[2022-01-23 12:26] LABS: Alanine Aminotransferase 21 U/L (0-33); Alkaline Phosphatase 52 U/L (35-105); Anion Gap 16.7 (5-19); Aspartate Amino Transferase 24 U/L (0-32); Blood Urea Nitrogen 17 mg/dL (6-20); Calcium 9.5 mg/dL (8.5-10.5); Carbon Dioxide 28 mmol/L (22-29); Chloride 101 mmol/L (98-107); Globulin 3.1 g/dL (1.3-4.6); Glomerular Filtration Rate 71.7 mL/min (90-130); Osmolality Calculated 290 mOsm/kg (285-295); Potassium 4.7 mmol/L (3.5-5.1); Sodium 141 mmol/L (136-145); Total Bilirubin 0.2 mg/dL (0.15-1.2); Total Protein 7.1 g/dL (6.6-8.7)
[2022-01-23 12:29] LABS: Glucose 33 mg/dL (65-115); Troponin(5th) Baseline 109 ng/L (0-10)
[2022-01-23 14:41] LABS: Troponin 5 2HR 117.4 ng/L (0-10); Troponin 5 2HR Delta 8.4 ABS# (0-10)
--- NOTE | 2022-01-23 14:44 | XR_ITS ---
WS: [id number] Exam: XR chest 1V portable [id number] Date/Time of Exam: 01/23/2022 2:47 PM Reason For Exam: dyspnea/cough Comparison 08/29/2018. The lungs are clear and fully expanded. Heart size is normal for portable technique. No pleural effus ions. Regional bony elements are intact. The mediastinum is normal in contour for technique. XR/XR chest 1V portable [id number] IMPRESSION: 1. No acute cardiopulmonary finding.
--- NOTE | 2022-01-23 14:45 | PM.HP ---
Providers/Chief Complaint Chief Complaint: low blood sugar History of Present Illness Bisi Anderson is a 71 year old female who is in the hospital for altered mental status. Patient is not able provide any history, daughter was called who stated that Bisi lives with her son, they were planning to visit Mr. Gray who is in [facility] [place] today when she was not coming out of the room, daughter checked on her and she noticed some seizure-like activity and frothing in her mouth, her last well-known time was last night before bedtime she was able to talk and she was in good mood as per the daughter. They have not noticed any typical strokelike features but the call 911 when they noticed confusion and visual hallucination today. She does take insulin at home. Her blood sugar was pretty low, EMS was not able to obtain any IV access hence they brought her to the ER directly where she was given IV dextrose. I have given her Solu-Medrol 100 mg IV push, CT head did not show strokelike features, CT abdomen pelvis did show urinary tension 500 mL was obtained on passage of Curtis catheter, troponin leak is noted, patient is hemodynamically stable she keeps staring at you however able to move her upper and lower extremities, coarse tremors noted. I have requested ER physician to give her a loading dose of Keppra 1500 mg IV push. She will go to ICU. We will give her therapeutic Lovenox aspirin and atorvastatin daughter is requesting placement to [facility] [place]. At baseline she does have dementia, she has been deteriorating gradually as per the family [phone] Julieta, daughter's contact info Review of Systems General: Reports: ROS unobtainable due to medical condition PFSH Acute PFSH: Medical History Arthritis CAD (coronary artery disease) Dementia Diabetes HTN (hypertension) Surgical History H/O: hysterectomy S/P cholecystectomy Family History Other CAD (coronary artery disease) Social History Smoking and tobacco status: former smoker Alcohol intake: never Substance/Drug Use: never Housing: House Vitals/I&O/Wt Last Vital Signs Temp 98.2 F 01/23/22 11:40 Pulse 92 01/23/22 11:40 Resp 22 H 01/23/22 11:40 BP 150/94 01/23/22 11:40 Pulse Ox 95 01/23/22 11:40 O2 Del Method 01/23/22 11:40 Weight last 48 hrs Weight 74.843 kg Physical Exam Narrative: Patient is dehydrated Keeps staring at you Moving upper and lower extremities I do not see any facial droop Patient is incoherent Hemodynamically stable currently on 2 L nasal cannula Variable S1-S2 Abdomen soft Bilateral breath sound without adventitious rhonchi or crackles Confused Neuro exam is limited Data : 01/23/22 11:35 01/23/22 11:35 A&P Assessment and plan (1) Hypoglycemia: (2) Encephalopathy: (3) Neuropathic pain: Plan Metabolic encephalopathy related to hypoglycemia Concern for hypoglycemic seizure Will give her loading dose of Keppra We will give her stress dose steroids CT head did not show strokelike features CT abdomen pelvis showed urinary retention EKG showing no ischemic changes troponin elevated Will start therapeutic Lovenox Her symptoms could be related to hypoglycemia We will keep her on maintenance therapy with Keppra Assess neuro status every 4 hours Pur?ed diet, will do speech eval Case management consultation [place] Continue D10 IV fluid hydration Patient does carry history of coronary to disease She carries history of diabetes and neuropathy Check drug screen urine analysis Most of the work-up is not being reveals because she is registered under 2 accounts Attestations Medical Necessity Statement*: More than 2 midnights anticipated will need ICU for hypoglycemic events Time Spent in Patient Care: 50 Coding Level of Care Code Acute Forest Fire Management Officer for Kimberley Farooq Diagnoses Hypoglycemia E16.2 Encephalopathy G93.40 Neuropathic pain M79.2
[2022-01-23 17:39] LABS: Cortisol Random 16.45 ug/dL (2.47-19.5)
[2022-01-23 18:04] LABS: Troponin 5 6HR 115.8 ng/L (0-10); Troponin 5 6HR Delta 6.8 ng/L (0-12)
[2022-01-23 18:08] LABS: NT Pro B Type Natriuretic Pept 2670 pg/mL (0-125); Prolactin 51.78 ng/mL (4.8-23.3)
== END 2022-01-23 23:42 | disposition admitted as inpatient to this hospital (09) ==
LOC: ER 02-26 13:44
PROVIDERS: Internal Medicine; Emergency Provider Family Medicine; PCP Family Medicine
DX: Z53.8 Procedure and treatment not carried out for other reasons (principal)
CPT/HCPCS: 36415; 36416; 71045; 80053; 82533; 82962; 83880; 84146; 84484; 85025; 96372; J1610

== ENCOUNTER 2022-01-23 11:42 | Inpatient (IN) | payer MEDICARE, MEDICAID, SELFPAY ==
[2022-01-23] VITALS (47 sets, daily range): BP systolic 106–196; BP diastolic 53–120; PULSE 94–120; RESP 3–23; TEMP 37.2; O2SAT 91–100; BMI 30.2; BMI 32.2
--- NOTE | 2022-01-23 11:50 | CT_ITS ---
WS: [id number] CT HEAD NONCONTRAST HISTORY: AMS TECHNIQUE: Contiguous axial imaging performed through the brain in 2.5 mm imaging. Bone and soft tiss ue windows. Sagittal and coronal reformats reviewed. All CT scans at [facility] use at least one of these dose optimization techniques: automated exposure control; mA and/or kV adjustment per pa tient size (includes targeted exams where dose is matched to clinical indication); or iterative recon struction. DLP: 1097.78 mGy.cm COMPARISON: 02/13/2018 No acute intracranial hemorrhage, midline shift or mass effect. Mild symmetric atrophy and small vessel ischemic disease. No obvious progression since the prior stud y. Ventricles: Normal size with no hydrocephalus. Heavy calcification in the distal vertebral arteries Paranasal sinuses: As visualized are clear. Mastoid air cells: Well pneumatized. Calvarium and scalp: Skull is intact with no soft tissue edema or swelling. CT/CT head wo con* [id number] IMPRESSION: 1. No acute intracranial hemorrhage or edema. 2. Mild atrophy and small vessel ischemic disease. No progression since 2017.
--- NOTE | 2022-01-23 11:51 | CT_ITS ---
WS: [id number] CT ABDOMEN AND PELVIS NONCONTRAST HISTORY: ABDOMINAL PAIN, pain all over. High blood pressure. TECHNIQUE: Imaging performed through the abdomen and pelvis. Coronal and sagittal reformats are submi tted. All CT scans at [facility] use at least one of these dose optimization techniques: auto mated exposure control; mA and/or kV adjustment per patient size (includes targeted exams where dose is matched to clinical indication); or iterative reconstruction. DLP: 1027.34 mGy.cm COMPARISON: None available. Lower thorax: Mild dependent changes at the lung bases. Mild cardiomegaly. Coronary artery calcificat ions. Small hiatal hernia. Liver: Normal size liver. No mass or bile duct dilatation. Gallbladder: Not identified. May have been surgically removed. Pancreas: Normal size and attenuation. Normal pancreatic duct. No pancreatitis or mass. Spleen: Normal. Adrenal glands: Normal. No mass. Right kidney: Normal size kidney. Slight dilatation of the renal pelvis. No ureteral stone. Left kidney: Normal size kidney with no mass or hydronephrosis. Aorta: Mild atherosclerosis abdominal aorta with no aneurysm. Heavy calcification in the splenic earl ry but the distal splenic artery aneurysm measuring 17 mm. No free fluid, intraperitoneal air or significant lymphadenopathy. GI tract: Normally distended stomach. No small bowel obstruction. Mild constipation and fecal retenti on in the RIGHT colon. The appendix is not definitely identified. No significant diverticular disease . Abdominal wall: Small umbilical hernia contains fat only. Pelvis: Well-distended urinary bladder. Osseous structures: L4 anterolisthesis by [address]/CT abdomen pelvis wo con [id number] IMPRESSION: 1. No acute abdominal or pelvic abnormalities are identified. 2. Very minimal dilatation of the RIGHT renal pelvis but no obstructing stone identified. 3. Atherosclerosis aorta. 4. Constipation with no obstruction. 5. The appendix is not identified. 6. Moderately distended urinary bladder. 7. Gallbladder not identified and probably surgically removed.
--- NOTE | 2022-01-23 12:10 | W.ED.GENADLT ---
HPI - General Adult General: Chief complaint: Altered Mental Status Stated complaint: low blood sugar Source: EMS Mode of arrival: EMS History of Present Illness: 71-year-old female arrives by EMS from home. They were initially called out for unresponsive patient when she got there she had significant altered mental status and an undetectable blood sugar there were unable to establish IV access transported her to the emergency room. On arrival here she was given glucagon 1 mg and amp of D50 once IV access was established subsequently she was given IV D10 drip. Repeat blood sugar at 69 patient continued to have altered mental status required soft restraints to protect the patient from herself and from pulling out her IV. Initially there is no family members available at the bedside and all history is per EMS and old records. Patient is on Tresiba for her blood sugars. Onset (ago): unknown Severity: severe Relieving factors: medication (Glucose) Exacerbating factors: none Associated symptoms: Reports confusion Review of Systems General: Reports: ROS unobtainable due to mental status Neuro: Reports: confusion [facility] ED PFSH: Medical History Arthritis CAD (coronary artery disease) CAD (coronary artery disease) Chest pain Coronary artery disease Dementia Diabetes Diabetes Facet arthropathy, lumbar High risk medication use History of gastroesophageal reflux (GERD) HTN (hypertension) HTN (hypertension) with goal to be determined Hypoglycemia Immunization counseling Insulin overdose Joint pain Lumbar disc disease with radiculopathy Muscle pain Positive ARI (antinuclear antibody) Seropositive rheumatoid arthritis of multiple sites ST elevation (STEMI) myocardial infarction Surgical History H/O: hysterectomy History of back surgery History of cholecystectomy History of hysterectomy History of left knee surgery Knee replacement S/P cholecystectomy Family History Other CAD (coronary artery disease) Cancer Diabetes Hypertension Denies family history of Rheumatoid arthritis Lupus Hyperlipidemia Lung disease Stroke Social History Smoking and tobacco status: former smoker Second hand smoke exposure: No Alcohol intake: never Housing: House History of recent travel: No Physical Exam HENMT: COMMON NORMALS: normocephalic, atraumatic, hearing grossly normal bilaterally, external ears normal, EAC's normal, TM's normal bilaterally, Normal nasal mucous membranes and turbinates present, moist oral mucous membranes and oropharynx normal HEAD & SCALP: normocephalic and atraumatic NOSE: Normal nasal mucous membranes and turbinates present EXTERNAL EAR: Yes external ears normal EXTERNAL AUDITORY CANAL: EAC's normal TYMPANIC MEMBRANE: TM's normal bilaterally Eye: COMMON NORMALS: Equal, round and reactive pupils present, EOMs intact bilaterally, conjunctivae normal and no scleral icterus CONJUNCTIVA: Yes conjunctivae normal PUPIL: Yes Equal, round and reactive pupils present Neck/C-Spine: COMMON NORMALS: full ROM, no lymphadenopathy, supple and no JVD Lymph: LYMPHATIC: no lymphadenopathy noted and no lymphedema noted Resp: COMMON NORMALS: normal respiratory effort, No retractions, No use of accessory muscles and clear to auscultation bilaterally AUSCULTATION: clear to auscultation bilaterally Cardio: COMMON NORMALS: no JVD, regular rate, regular rhythm and No murmurs present (Cardio) RATE: regular rate RHYTHM: regular rhythm GI: COMMON NORMALS: Soft to palpation and No hepatosplenomegaly present AUSCULTATION: Yes normoactive bowel sounds PALPATION: Yes Soft to palpation, No Tenderness to palpation present (GI), No Guarding due to palpation present (GI) and Yes No hepatosplenomegaly present Extremity: COMMON NORMALS: normal to inspection, capillary refill normal, no clubbing, cyanosis or edema, no calf tenderness and no pedal edema Skin: COMMON NORMALS: no rashes or lesions noted GENERAL SKIN EXAM: no rashes or lesions noted Course Vital Signs: Vital signs: Vital Signs Temperature 98.1 F 01/26/22 07:50 Pulse Rate 112 H 01/26/22 11:45 Respiratory Rate 18 01/26/22 11:45 Blood Pressure 150/80 01/26/22 07:50 Pulse Oximetry 95 01/26/22 11:45 Oxygen Delivery Me thod 01/26/22 08:56 Oxygen Flow Rate 3 01/26/22 08:00 MDM - General Adult Medical Decision Making No acute ST changes on EKG at time of presentation her first troponin is 109 her second 1 is 117. Concerned about the delta especially given she is not really able to give us much history she remains very altered despite correction of her glucose. Discussed with hospitalist will admit monitor blood glucose. Continue serial troponins and EKGs. Lexiscan sestamibi stress test done in October 2020 was normal Medical Records I reviewed the patient's medical records. Lab Data I reviewed the patient's lab results. : 01/26/22 04:45 01/26/22 04:[address] 01/23/22 11:50 IMPRESSION: 1. No acute intracranial hemorrhage or edema. 2. Mild atrophy and small vessel ischemic disease. No progression since 2018. Abdomen/Pelvis CT 01/23/22 11:51 IMPRESSION: 1. No acute abdominal or pelvic abnormalities are identified. 2. Very minimal dilatation of the RIGHT renal pelvis but no obstructing stone identified. 3. Atherosclerosis aorta. 4. Constipation with no obstruction. 5. The appendix is not identified. 6. Moderately distended urinary bladder. 7. Gallbladder not identified and probably surgically removed. Lumbar Spine CT 01/25/22 08:39 IMPRESSION: 1. Grade 1 anterolisthesis of L4 with asymmetric disc space narrowing. L4 invagination into the RIGHT lateral L5 vertebral body. 2. Severe central, bilateral subarticular recess and foraminal stenosis at L4-5. Most significant stenosis involving the RIGHT L4 and L5 nerve roots. 3. Mild central and bilateral subarticular recess stenosis at L3-4. Laboratory Results POC Glucose 125 mg/dL (70-110) H 01/23/22 12:25 Urine Color Yellow (Yellow) 01/23/22 14:50 Urine Appearance Clear (CLEAR) 01/23/22 14:50 Urine pH 7 (5-7) 01/23/22 14:50 Ur Specific [place] 1.000 (1.005-1.030) L 01/23/22 14:50 Urine Protein Neg 01/23/22 14:50 Urine Glucose (UA) 1+ (Normal) H 01/23/22 14:50 Urine Ketones Negative (Negative) 01/23/22 14:50 Urine Blood 3+ (Negative) H 01/23/22 14:50 Urine Nitrate Negative 01/23/22 14:50 Urine Bilirubin Neg (Negative) 01/23/22 14:50 Urine Urobilinogen Norm mg/dL (Negative) 01/23/22 14:50 Ur Leukocyte Esterase Negative 01/23/22 14:50 Urine RBC >100 /hpf (0-2) H 01/23/22 14:50 Urine WBC 0-4 /hpf (0-5) H 01/23/22 14:50 Ur Squamous Epith Cells 0-4 /hpf (0-5) H 01/23/22 14:50 Amorphous Sediment Not Reportable 01/23/22 14:50 Urine Bacteria Trace /hpf (NONE) 01/23/22 14:50 Discharge Plan Discharge Patient Disposition: Admitted As Inpatient Admit Provider: Brad Allen Clinical Impression: Delirium due to general medical condition, Diabetes, Hypoglycemia, Encephalopathy, Elevated troponin I level Condition: Stable Discharge Diet: Cardiac Discharge Activity: Increase activity as tolerated Coding Level of Care Code ED Calculator Operator for Kimberley Farooq
[2022-01-23 12:28] LABS: Glucose Point of Care 125 mg/dL (70-110)
[2022-01-23] MEDS: morphine 4 mg/mL SDV 1 mL IVP (12:52)
[2022-01-23] MEDS: enoxaparin 100 mg/mL Syringe SUBCUT (12:52)
--- NOTE | 2022-01-23 14:23 | PC.PHAR ---
PT AND FAMILY UNABLR TO VERIFY MEDICATIONS DUE TO PT LIVING ALONE AND AMS- MEDS VERIFIED USING LAST FILLED EXTERNAL MED LIST- FAMILY MEMBER VERIFIED PT HAS ALOT OF MEDICATIONS AT HOME BUT DOES NOT KNOW WHAT THEY ARE
--- NOTE | 2022-01-23 14:45 | ECG_ITS ---
[facility] Test Date: 2022-01-23 Pat Name: Bisi Anderson Department: Room: Gender: Female Program Professional: : 1950 Requested By: Marty Staples Order Number: [id number] Lee Ann MD: Emma Bhatti M.D. Measurements Intervals [place] Rate: 102 P: 74 NM: 151 QRS: 62 QRSD: 70 T: 74 QT: 328 QTc: 428 Interpretive Statements SINUS TACHYCARDIA Compared to ECG 01/23/2022 12:31:57 ST (T wave) deviation no longer present Electronically Signed On 01-24-2022 6:10:30 CDT by Emma Bhatti M.D. [email or web address].[employer]/store/OM/[id number]/[id number]
[2022-01-23 15:15] LABS: Add Urine Microscopic? YES; Bilirubin Urine Neg (Negative); Blood Urine 3+ (Negative); Glucose Urine UA 1+ (Normal); Ketones Urine Negative (Negative); Leukocyte Esterase Urine Negative; Nitrate Urine Negative; Protein Urine Neg; Urine Appearance Clear (CLEAR); Urine Color Yellow (Yellow); Urobilinogen Urine Norm (Negative); pH Urine 7 (5-7)
[2022-01-23 15:19] LABS: Bacteria Urine TRACE /hpf; RBC Urine >100 /hpf (0-2); Squamous Epithelial Cell Urine 0-4 /hpf (0-5); WBC Urine 0-4 /hpf (0-5)
[2022-01-23 15:20] LABS: Add Urine Culture? Yes
--- NOTE | 2022-01-23 17:45 | ECG_ITS ---
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 Measurements Intervals [place] Rate: 103 P: 49 MA: 153 QRS: 14 QRSD: 74 T: 93 QT: 331 QTc: 434 Interpretive Statements SINUS TACHYCARDIA NONSPECIFIC T-WAVE ABNORMALITY Compared to ECG 01/23/2022 13:34:24 T-wave abnormality now present Electronically Signed On 01-24-2022 6:10:15 CDT by Emma Bhatti M.D. [email or web address].[email or web address]/[id number] f
[2022-01-23] MEDS: cefTRIAXone 1,000 MG in sodium chloride 0.9% (plus) 50 ML 100 MG IV (17:55)
[2022-01-23] MEDS: dextrose 50% syringe 50 mL 100 ML (17:55)
[2022-01-23] MEDS: dextrose 50% syringe 50 mL 100 ML IVP (18:30)
[2022-01-23] MEDS: dextrose 10% 1,000 ML 100 ML IV ×2 (18:33→21:41)
[2022-01-23 19:24] LABS: Glucose Point of Care 113 mg/dL (70-110)
[2022-01-23 19:42] LABS: Glucose Point of Care 25 mg/dL (70-110)
[2022-01-23 19:42] LABS: Glucose Point of Care 137 mg/dL (70-110)
[2022-01-23 19:55] LABS: Glucose Point of Care 88 mg/dL (70-110)
--- NOTE | 2022-01-23 20:32 | USCV_ITS ---
Bisi Anderson Age: 71 Gender: F : 1950 Exam Date: 01/23/2022 22:58 Ordering Phys: Brad Allen MD Technologist: HAYDER [place] [facility] [place]: [place]A. Patient is confused in ICU-8 BP: 156 / 80 HR: 104 Rhythm: Sinus Technical Quality: Adequate MEASUREMENTS (Male / Female) Normal Values 2D ECHO LV Diastolic Diameter PLAX 2.8 cm 4.2 - 5.9 / 3.9 - 5.3 cm LV Systolic Diameter PLAX 2.0 cm IVS Diastolic Thickness 1.6 cm 0.6 - 1.0 / 0.6 - 0.9 cm IVS Systolic Thickness 1.8 cm LVPW Diastolic Thickness 1.3 cm 0.6 - 1.0 / 0.6 - 0.9 cm LVPW Systolic Thickness 2.1 cm LVOT Diameter 1.9 cm LV Ejection Fraction 2D Teich 55.6 % LV Ejection Fraction MOD 2C 66.7 % LV Ejection Fraction 2C AL 69.2 % LA Diameter 3.4 cm LA Width 3.5 cm LA Height 5.1 cm RA Width 3.1 cm RA Height 4.4 cm Aorta at Sinotubular Diameter 2.8 cm IVC Diameter 1.4 cm M-MODE Aortic Annulus Diameter 3.1 cm LA Ao Ratio MM 1.2 MV E Point Septal Separation 0.2 cm DOPPLER AV Peak Velocity 227.0 cm/s LVOT Peak Velocity 234.0 cm/s AV Area Cont Eq vti 2.4 cm squared AV Area Cont Eq pk 2.9 cm squared MV Area PHT 4.9 cm squared Mitral E to A Ratio 0.7 MV E' Velocity 69.5 cm/s Mitral E to MV E' Ratio 21.5 Mitral E to LV E' Lateral Ratio 21.5 Mitral E to LV E' Septal Ratio 21.5 TR Peak Velocity 229.0 cm/s TR Peak Gradient 21.0 mmHg TV Peak E Velocity 87.0 cm/s Right Atrial Pressure 5.0 mmHg Pulmonary Artery Systolic Pressu 26.0 mmHg PV Peak Velocity 135.0 cm/s RV Acceleration Time 0.1 s RV Ejection Time 0.3 s RV AcT/ET 0.3 FINDINGS Left Ventricle Left ventricle is normal in size. LV systolic function is normal with EF of 60 to 65%. No regional wall motion abnormalities are seen. Grade 1 diastolic dysfunction Right Ventricle RV is normal in size and function Right Atrium Normal in size Left Atrium Normal in size Mitral Valve Moderate mitral annular calcification is seen. No significant stenosis or regurgitation Aortic Valve Aortic valve is thickened. Mild aortic stenosis with mean gradient across aortic valve of 10 mmHg. Aortic valve area is 2.4 cm2 Tricuspid Valve Mild tricuspid regurgitation. Pulmonary artery systolic pressure is normal Pulmonic Valve Not well-visualized Pericardium Normal Aorta Normal in size IVC IVC appears to be normal CONCLUSIONS LV systolic function is normal with EF of 60 to 65%. Grade 1 diastolic dysfunction Moderate mitral annular calcification is seen. Aortic valve is thickened. Mild aortic stenosis Moderate mitral annular calcification is seen Mild tricuspid regurgitation Compared to prior echocardiogram from 2020, no significant changes are seen. Crow Maldonado MD (Electronically Signed) Final Date: 24 January 2022 10:17 S
--- NOTE | 2022-01-23 20:45 | ECG_ITS ---
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 Measurements Intervals [place] Rate: 100 P: 53 AK: 156 QRS: 17 QRSD: 82 T: 93 QT: 354 QTc: 458 Interpretive Statements SINUS TACHYCARDIA NONSPECIFIC ST & T-WAVE ABNORMALITY Compared to ECG 01/23/2022 14:27:46 No significant changes Electronically Signed On 01-24-2022 6:08:15 CDT by Emma Bhatti M.D. [email or web address].[facility].[employer]/store/OM/[id number]
[2022-01-23 20:52] LABS: Glucose Point of Care 56 mg/dL (70-110)
[2022-01-23] MEDS: dextrose 50% syringe 50 mL IVP (20:55)
[2022-01-23 21:27] LABS: Glucose Point of Care 113 mg/dL (70-110)
[2022-01-23 21:32] LABS: D Dimer 0.51 ug/mIFEU (0-0.59)
[2022-01-23] MEDS: atorvastatin 40 mg Tablet PO (21:40)
[2022-01-23] MEDS: clopidogrel 300 mg Tablet PO (21:40)
[2022-01-23] MEDS: aspirin 325 mg EC Tablet PO (21:40)
[2022-01-23 21:49] LABS: NT Pro B Type Natriuretic Pept 3232 pg/mL (0-125); Prolactin 42.04 ng/mL (4.8-23.3)
[2022-01-23 21:59] LABS: Thyroid Stimulating Hormone 0.43 uIU/mL (0.27-4.20); Vitamin B12 219 pg/mL (232-1245)
[2022-01-23 22:09] LABS: Estmated Average Glucose 126
[2022-01-23 22:11] LABS: Glucose Point of Care 98 mg/dL (70-110)
[2022-01-23 23:01] LABS: Basophils % 0.3 %; Eosinophils # 0.1 10^3/uL (0.0-0.8); Eosinophils % 0.7 %; Hematocrit 33.6 % (37.0-47.0); Hemoglobin 10.4 g/dL (11.5-15.3); Lymphocytes % 27.5 %; Mean Corpuscular Hemoglobin 27.9 pg (28.0-34.0); Mean Corpuscular Volume 90.1 fl (81-99); Monocytes # 0.4 10^3/uL (0.2-0.9); Monocytes % 5.4 %; Neutrophils # 4.82 10^3/uL (1.8-7.7); Neutrophils % 65.7 %; Nucleated Red Blood Cells % 0 %; Platelet Count 197 10^3/cmm (130-400); Red Blood Count 3.73 10^6/uL (4.1-5.3); Red Cell Distribution Width 15.7 % (12.1-15.1); White Blood Count 7.3 10^3/uL (4.0-10.0)
[2022-01-23 23:14] LABS: Anion Gap 16.7 (5-19); Blood Urea Nitrogen 15 mg/dL (8-23); Calcium 9.7 mg/dL (8.5-10.5); Carbon Dioxide 29 mmol/L (22-29); Chloride 97 mmol/L (98-107); Glucose 47 mg/dL (65-115); Osmolality Calculated 284 mOsm/kg (285-295); Potassium 4.7 mmol/L (3.5-5.1); Sodium 138 mmol/L (136-145)
--- NOTE | 2022-01-23 23:45 | ECG_ITS ---
[facility] Test Date: 2022-01-23 Pat Name: Bisi Anderson Department: Room: Gender: Female Brand Coordinator: : 1950 Requested By: Marty Staples Order Number: [id number] Lee Ann MD: Emma Bhatti M.D. Measurements Intervals [place] Rate: 100 P: 67 ND: 153 QRS: 65 QRSD: 79 T: 95 QT: 350 QTc: 451 Interpretive Statements SINUS TACHYCARDIA MODERATE ST DEPRESSION [0.05+ mV ST DEPRESSION] Compared to ECG 06/01/2019 10:57:09 ST (T wave) deviation now present Sinus rhythm no longer present Myocardial infarct finding no longer present Electronically Signed On 01-24-2022 6:10:37 CDT by Emma Bhatti M.D. [email or web address].[email or web address].LK FREEMAN/store/[id number]
[2022-01-24] VITALS (59 sets, daily range): BP systolic 110–181; BP diastolic 60–105; PULSE 69–113; RESP 11–26; TEMP 36.6–37.3; O2SAT 89–100
[2022-01-24 00:19] LABS: Glucose Point of Care 100 mg/dL (70-110)
[2022-01-24] MEDS: bisacodyl 10 mg Supp PR (00:34)
[2022-01-24] MEDS: dextrose 50% syringe 50 mL IVP ×2 (01:53→04:45)
[2022-01-24 01:59] LABS: Glucose Point of Care 245 mg/dL (70-110)
[2022-01-24 01:59] LABS: Glucose Point of Care 28 mg/dL (70-110)
[2022-01-24] MEDS: hydrocortisone 100 mg/2 mL SDV IVP ×3 (03:06→15:29)
[2022-01-24 03:10] LABS: Glucose Point of Care 90 mg/dL (70-110)
[2022-01-24 04:01] LABS: Glucose Point of Care 71 mg/dL (70-110)
[2022-01-24 04:12] LABS: Basophils % 0.3 %; Eosinophils # 0.1 10^3/uL (0.0-0.8); Hematocrit 30.4 % (37.0-47.0); Hemoglobin 9.4 g/dL (11.5-15.3); Lymphocytes # 2.1 10^3/uL (0.8-4.8); Lymphocytes % 36.7 %; Mean Corpuscular HGB Conc 30.9 g/dL (30.0-36.0); Mean Corpuscular Hemoglobin 28.1 pg (28.0-34.0); Mean Platelet Volume 10.6 fL (7.4-10.4); Monocytes # 0.6 10^3/uL (0.2-0.9); Monocytes % 9.9 %; Neutrophils # 2.99 10^3/uL (1.8-7.7); Neutrophils % 51.8 %; Nucleated Red Blood Cells % 0 %; Platelet Count 164 10^3/cmm (130-400); Red Blood Count 3.34 10^6/uL (4.1-5.3); Red Cell Distribution Width 15.9 % (12.1-15.1); White Blood Count 5.8 10^3/uL (4.0-10.0)
[2022-01-24 04:37] LABS: Glucose Point of Care 61 mg/dL (70-110)
[2022-01-24 04:38] LABS: Alanine Aminotransferase 17 U/L (0-33); Albumin Level 3.4 g/dL (3.5-5.2); Alkaline Phosphatase 41 U/L (35-105); Anion Gap 13.1 (5-19); Aspartate Amino Transferase 25 U/L (0-32); Blood Urea Nitrogen 12 mg/dL (8-23); Carbon Dioxide 30 mmol/L (22-29); Chloride 98 mmol/L (98-107); Globulin 2.9 g/dL (1.3-4.6); Glucose 66 mg/dL (65-115); Magnesium 1.8 mg/dL (1.7-2.3); Osmolality Calculated 282 mOsm/kg (285-295); Phosphorus 4.1 mg/dL (2.5-4.5); Potassium 4.1 mmol/L (3.5-5.1); Sodium 137 mmol/L (136-145); Total Bilirubin 0.3 mg/dL (0.15-1.2); Total Protein 6.3 g/dL (6.6-8.7)
[2022-01-24 05:16] LABS: Glucose Point of Care 129 mg/dL (70-110)
[2022-01-24 06:07] LABS: Glucose Point of Care 119 mg/dL (70-110)
[2022-01-24] MEDS: enoxaparin 80 mg/0.8 mL Syringe SUBCUT (06:22)
--- NOTE | 2022-01-24 07:08 | PC.NURSE ---
During initial assessment pt was confused and unable to answer questions. pt daughter Julieta arrived around 2100. This RN asked daughter and pt questions. Daughter states, that patient at baseline is confused and doesn't know the year or month or where she is if she's not at home. But she says the patient does all her own medications without help. Daughter Julieta said she might of given herself too much insulin, but she doesn't believe she would do it to harm herself intentionally . Later she pulled me aside and said in the past week the patient had made comments about how it wouldn't be that bad if she went to sleep and didn't wake up. All this was reported to MD Luisito. 2048 Luisito notified of POC BG 56 and intervention done. request this RN to also give glucagon 1mg IM and change accu checks to Q2. he also reordered D10 gtt @ 100ml/hr and D/C D5NS @ 75ml/hr. 152 MD Luisito was also notified of POC BG of 28 and intervention done. requested accu checks changed to Q1 433 Luisito was notified of POC BG of 61. gave orders to increase D10 to 150ml/hr and add D50 Q1 PRN.
[2022-01-24 07:13] LABS: Glucose Point of Care 98 mg/dL (70-110)
--- NOTE | 2022-01-24 07:48 | PC.NURSE ---
Patient with nuc med at this time. this nurse informed nuc med and CDL staff that patient's blood glucose can drop suddenly and patient is q1h accu check, Nurse in CDL advised this nurse they could check Accu checks, Nuc Med to call this nurse if patient shows signs or symptoms of hypoglycemia
[2022-01-24] MEDS: acetaminophen 500 mg Tablet PO ×2 (08:00→22:30)
[2022-01-24] MEDS: dextrose 10% 1,000 ML 150 ML IV ×2 (08:00→13:21)
[2022-01-24 08:18] LABS: Glucose Point of Care 108 mg/dL (70-110)
--- NOTE | 2022-01-24 08:39 | PC.NURSE ---
patient back from [facility], did not tolorate procedure, to attempt tomorrow 01/25
[2022-01-24] MEDS: clopidogrel 75 mg Tablet PO (09:33)
[2022-01-24] MEDS: cefTRIAXone 1,000 MG in sodium chloride 0.9% (plus) 50 ML 100 MG IV (09:33)
[2022-01-24] MEDS: aspirin 81 mg EC Tablet PO (09:33)
[2022-01-24] MEDS: sennosides-docusate Tablet 1 TAB PO (09:33)
[2022-01-24 10:08] LABS: Glucose Point of Care 118 mg/dL (70-110)
--- NOTE | 2022-01-24 11:59 | PM.PN ---
Subjective Subjective: My H&P has been merged into a different account which I have requested IT to retrieve from yesterday All of my orders were also removed I reordered all of my medications and orders last night when I followed up on the patient from home This morning patient is agitated She refused her Lexiscan stress test D-dimer unremarkable prolactin is high TSH is normal B12 is low Hematuria likely related to Curtis placement Vitals/I&O/Wt Last Vital Signs Temp 98.2 F 01/24/22 02:00 Pulse 98 01/24/22 10:30 Resp 19 H 01/24/22 10:30 BP 178/80 01/24/22 10:30 Pulse Ox 98 01/24/22 10:30 O2 Del Method 01/24/22 08:34 O2 Flow Rate 3 01/23/22 21:08 01/23/22 01/24/22 01/24/22 22:59 06:59 14:59 Intake Total 675 / 675 500.000 / 1175.000 500 / 500 Output Total 2450 / 2450 1900 / 4350 Balance -1775 / -1775 -1400.000 / -3175.000 500 / 500 Weight last 48 hrs Weight 79.968 kg Weight 74.843 kg Physical Exam Narrative: Patient is a bit agitated Oriented to time place and person Hemodynamically stable to hypertensive Currently on room air No active signs of stroke Looks slightly dehydrated S1, S2 Currently on room air saturating well No signs of meningoencephalitis, complaining of headache Vision is intact Patient looks slightly dehydrated Urinary Catheter Management: Curtis: Cath Placed During This Visit: yes Reason for Continuing Indwelling Catheter: Accurate Measurement of Urinary Output in Critically Ill Patients Urinary Catheter Date of Insertion: 01/23/22 Urinary Catheter Time of Insertion: 14:56 Data : 01/24/22 03:54 01/24/22 03:54 Micro: Microbiology 01/23/22 14:50 Urine Culture - Preliminary Urine,Clean Catch A&P Assessment and plan (1) Lumbar disc disease with radiculopathy: (2) Facet arthropathy, lumbar: (3) High risk medication use: (4) Seropositive rheumatoid arthritis of multiple sites: (5) HTN (hypertension) with goal to be determined: (6) Diabetes: (7) Hypoglycemia: Plan Hypoglycemia related to insulin overdose Patient today endorse that she took 80 units of Lantus at home because her sugar was running high Overnight blood sugar has improved She was not able to sleep without No signs of meningoencephalitis Hemoglobin A1c is 6 she probably will need to cut back on her Lantus dose I would recommend 15 units at the time of discharge She is complaining of headache I will give her oxycodone and sumatriptan 1 dose She is not requiring oxygen No signs of stroke She has low vitamin B12 She does have NSTEMI we will do cardiac Lexiscan stress test tomorrow morning Remove Curtis catheter Stress test tomorrow morning Patient has refused to go to intermediate Most likely will be discharged home tomorrow morning Attestations Medical Necessity Statement*: Discharge tomorrow Time Spent in Patient Care: 40 Coding Level of Care Code Acute Hydraulic Dredge Operator for Kimberley Farooq Diagnoses Lumbar disc disease with radiculopathy M51.16 Facet arthropathy, lumbar M47.816 High risk medication use Z79.899 Seropositive rheumatoid arthritis of multiple sites M05.79 HTN (hypertension) with goal to be determined I10 Diabetes E11.9 Hypoglycemia E16.2
[2022-01-24 12:23] LABS: Glucose Point of Care 113 mg/dL (70-110)
[2022-01-24 12:47] LABS: Glucose Point of Care 134 mg/dL (70-110)
--- NOTE | 2022-01-24 13:34 | PC.NURSE ---
patient anxious and reports a headache and needing food family member came to nurses station very upset due to the IV pump beeping and patient not being fed this nurse making attempts to reach provider, Provider notified instructions recived to order CC diet, Tylenol 500mg PO upon entering room to administer Tylenol provider came to bed side with instructions to give percocet 10/325mg po and Submatriptan 25mg PO x one now
[2022-01-24] MEDS: oxyCODONE-APAP 10-325 mg Tablet 1 TAB PO (13:54)
[2022-01-24] MEDS: SUMAtriptan 25 mg Tablet PO (13:56)
[2022-01-24 14:26] LABS: Glucose Point of Care 169 mg/dL (70-110)
[2022-01-24] MEDS: cyanocobalamin 1,000 mcg/mL SDV 1000 MCG IM (15:28)
[2022-01-24] MEDS: ziprasidone 20 mg/mL SDV 10 MG IM (15:29)
[2022-01-24 16:31] LABS: Glucose Point of Care 130 mg/dL (70-110)
--- NOTE | 2022-01-24 17:53 | ECG_ITS ---
[facility] Test Date: 2022-01-24 Pat Name: Bisi Anderson Department: Room: 267 Gender: Female Ammonia Refrigeration Technician: : 1950 Requested By: Brad Allen Order Number: [id number] Lee Ann MD: Crow Maldonado M.D. Measurements Intervals [place] Rate: 106 P: 50 [place]: 154 QRS: 8 QRSD: 73 T: 104 QT: 334 QTc: 445 Interpretive Statements SINUS TACHYCARDIA ANTERIOR MYOCARDIAL INFARCTION , POSSIBLY ACUTE [40+ ms Q WAVE AND/OR ST/T ABNORMALITY IN V3/V4] PROBABLE INFERIOR MYOCARDIAL INFARCTION , OF INDETERMINATE AGE [35 ms Q WAVE IN II/aVF] MARKED ST ELEVATION, CONSIDER LATERAL INJURY [MARKED ST ELEVATION W/O NORMALLY INFLECTED T-WAVE IN I/aVL/V5/V6] ACUTE VT Compared to ECG 01/23/2022 21:04:06 Myocardial infarct finding now present ST (T wave) deviation now present T-wave abnormality no longer present Electronically Signed On 01-25-2022 8:53:38 CDT by Crow Maldonado M.D. [id number]
[2022-01-24] MEDS: nitroglycerin drip 50 MG/250 ML PREMIX 6 MG IV (18:17)
[2022-01-24 18:24] LABS: Troponin(5th) Baseline 97 ng/L (0-10)
--- NOTE | 2022-01-24 18:32 | XACV_ITS ---
Exam Room: 2 Ht: 157 cm Wt: 80 kg BSA: 1.90 m2 Gender: Female : 1950 Any Known Allergies: Other Exam Priority: Routine Procedure(s): Procedure Description: Diagnostic procedure Procedure Description: PCI procedure Procedure Description: Left Heart Catheterization Procedure Description: Left ventriculography Procedure Description: PTCA Procedure Description: Coronary Angiography Diagnostic Cath Status: Emergency Diagnostic Findings * Circumflex has mild luminal irregularities. * Right Coronary Artery has mild luminal irregularities. * Distal Left Anterior Descending: total thrombotic occlusion, KIMBERLY: 0 flow. Mid LAD has patent prior stent. * INDICATION: 71 year old female with past medical history of coronary artery disease with prior PCI of LAD, hypertension, diabetes who was recently admitted to the hospital with hypoglycemia. Interventional cardiology was called as she started having chest pain about 30 to 40 minutes prior. Stat EKG was done that was showing ST elevations in anterior and anterolateral leads. Fire Protection Engineering Technician was emergently activated. * Left Main has no disease. * Coronary angiography shows right dominance. PCI Status: Emergency PCI Indication: STEMI - Immediate PCI for STEMI Interventional Findings * PROCEDURE DETAIL: We engaged left main artery with XB 3.5 guide catheter. IV heparin was administered to maintain ACT above 250 S. There was total thrombotic occlusion of distal to apical LAD. We used a 0.014 run-through guidewire to cross into apical LAD. Balloon angioplasty was performed with a 2.25 x 15 mm semicompliant balloon. This established slow flow in the apical LAD. It was a small caliber vessel. EKG changes resolved and patient's chest pain improved with it. We decided not to place a stent given small size of the distal LAD and limited territory supplied by it. Guidewire and guide catheter were removed. Patient left the Fire Protection Engineering Technician in a stable condition.. * Distal Left Anterior Descendin% stenosis treated with a AB TREK 2.25X15 RX BALLOON. 0% residual stenosis, KIMBERLY: 2 flow. Conclusions 1. Total thrombotic occlusion of distal LAD s/p successful revascularization with balloon angioplasty. 2. Stent not placed secondary to dislocation of the 3. occlusion 4. and small caliber of the vessel.. 5. Mild left ventricular systolic dysfunction. Ejection fraction of 45%. 6. Distal Left Anterior Descending was treated with a Balloon. Recommendations * Transferred to ICU. * Aspirin and Plavix for at least 1 year. * High intensity statin therapy. * Outpatient cardiology follow-up in 4 weeks. Interventional RX Recommendation: PCI w/o planned CABG Diagnostic RX Recommendation: PCI w/o planned CABG Anticoagulation: Heparin Ventriculography Ejection Fraction: 45.0 % Left Ventriculography Findings: * [place] is aneurysmal. Pressures Phase:Rest AO : 116 / 62 ( 86 ) @ 2:24:29 PM 54 / 18 ( 34 ) @ 2:24:29 PM 145 / 74 ( 104 ) @ 2:24:29 PM 149 / 78 ( 107 ) @ 2:24:29 PM LV : 182 / -6 / 8 @ 2:24:29 PM 193 / -5 / 13 @ 2:24:29 PM 189 / -3 / 11 @ 2:24:29 PM Valves Phase:DefaultPhase AV : 44.0 @ 7:24:29 PM AV Mean Gradient: 34.0 @ 7:24:29 PM 34.0 @ 7:24:29 PM Clinical Evaluation EBL: 5mL-10mL Procedural Details Pre-Procedure Time Out. Identified patient by full name and date of as verbalized by the patient/guarantor. Does the consent match the physician's order: Yes. Accurate & Complete Informed Consent: Yes. Inpatient/Outpatient History & Physical on Chart: Yes. If H&P is completed, is and addenduem needed: No; If yes, is the addendum complete: N/A. Visualize and Verify Site with Patient/Guarantor: N/A. Relevant Radiology Images available: Yes. Pre-op teaching completed and patient verbalized understanding. The risks, benefits, and alternatives of sedation and/or procedure were discussed by physician. The patient agrees to continue. Procedure started. Patient's family in the laboratory supervisor waiting room. Equipment: 6F - Femoral. Cardiac Cath Pack. ACIST Manifold Kit Model BT 2000. Heparinized Saline (2 units/mL), 1000 mL bag. Kit, Micropuncture. Physician arrived. Physician scrubbed in. Immediate Pre-Procedure Time Out. Correct Patient: Yes; Correct Procedure: Yes; Correct Site: Yes; Correct Patient Position: Yes; Correct Supplies: Yes; Dried Flammable Prep: Yes; Blood Products Available: N/A;. Lidocaine 1% infiltrated to the right groin. [facility] Clinical Fraility Score: 4: Vulnerable. Fire Protection Engineering Technician Indications: ACS <= 24 hours. Chest Pain Symptom Assessment: Typical Angina Symptoms. Cardiovascular Instability: Yes, if yes, Persistant Ischemic Symptoms. Correct patient, site and procedure confirmed by cath team. Current diagnosis: STEMI. PERRLA. Strong, equal hand diploma pharmacy technician bilaterally. Lungs clear x 5 lobes. IV Site on Arrival: 20 gauge in the left forearm. IV Site on Arrival: 20 gauge in the right anticubital. IV Fluids: 0.9% NaCl at KVO. 0 mL infused prior to laboratory supervisor. Oxygen started at 2liters/min via nasal canula. right groin was prepped with chloroprep then draped in the usual sterile fashion. Baseline sample Acquired. HR: 111 BPM. Arterial access obtained with micropuncture set. 6 kuwaiti XB 3.5 guide catheter was inserted over the wire. Multiple views taken of left coronary artery. Anesthesia here for sedation. See anesthesia record for further notes. Inflation number : 1 A AB TREK 2.25X15 RX BALLOON was prepped and advanced across the Dist LAD , then inflated to 6 LITTLE for 0:18 seconds. Inflation number: 2 The AB TREK 2.25X15 RX BALLOON was reinflated across the Dist LAD, to 4 LITTLE for 0:24 seconds. Balloon out. Runthrough guidewire was advanced through the guide catheter to lesion in the distal LAD. Results checked. ACT drawn. Results 193 seconds. Therapeutic limits - pre-heparin administration 90-150 seconds and monitoring heparin during a vascular procedure >250 seconds. Wire out. Guide out. A 5 kuwaiti JR4 catheter in over wire. Multiple views taken of right coronary artery. EDP Sample taken: LV 182/-7,8; HR: 103 BPM; SpO2: Off%. Catheter out. A 5 kuwaiti Angled Pig catheter in over wire. LV gram performed in WEIR @ 10 mL/second for a total of 30 mL. EDP Sample taken: LV 193/-6,13; HR: 103 BPM; SpO2: 98%. Pullback taken: LV 189/-4,11; AO 145/74(104); Mean: 34mmHg, Peak to Peak: 44mmHg, SEP: 15sec/min; HR: 102 BPM; SpO2: 98%. Catheter out. A Right femoral angiogram was performed to determine safe placement of closure device. A Suture was successful obtaining hemostatsis at the Right Femoral artery insertion site. Sheath(s) sutured into position with 2-0 silk and sterile 4x4's and Op-site applied over the site. No oozing or signs and symptoms of hematoma noted. Arterial sheath flushed and connected to tranducer and pressure bag with heparinized saline. Curtis cath in place on arrival to the laboratory supervisor. No VTE prophylaxis required. PERRLA. Strong, equal hand diploma pharmacy technician bilaterally. Medication's Wasted: Nitro = 49.9 mg. ACT drawn. Results 278 seconds. Therapeutic limits - pre-heparin administration 90-150 seconds and monitoring heparin during a vascular procedure >[address] Maldonado scrubbed out. Total IV fluids: 100 mL. PCI Indication: STEMI. Post-op diagnosis: PTCA of the distal LAD. Complications: none. Responsiveness - Normal response to verbal stimuli; alert and oriented, PERRLA. Estimated blood loss: 5mL-10mL. Family updated by Dr. Maldonado. Airway - Unaffected, no intervention required; spontaneous ventilation. Circulation: W/N/L, pulses unchanged. Nausea/Vomiting: No. Medication's Wasted: Heparin = 4000 units. Post Procedure: bilateral dorsalis pedis pulse 3+. Procedure completed. Patient transferred by bed to ICU. Vital chart was stopped. Access Site Site: Right Femoral artery Sheath Size: 6 Fr Hemostasis Method: Suture Hemostasis Success: Successful Procedure Medications Start: 6:50 PM Stop: 6:50 PM Medication: Versed Amount: 1 mg Route: I.V. Start: 6:50 PM Stop: 6:50 PM Medication: Fentanyl Amount: 50 mcg Route: I.V. Start: 6:50 PM Stop: 6:50 PM Medication: Heparin Amount: 5000 units Route: I.V. Start: 6:53 PM Stop: 6:53 PM Medication: Heparin Amount: 2000 units Route: I.V. Start: 7:03 PM Stop: 7:03 PM Medication: Nitrogylcerin Amount: 100 mcg Route: I.C. Start: 7:05 PM Stop: 7:05 PM Medication: Heparin Amount: 3000 units Route: I.V. Start: 7:19 PM Stop: 7:19 PM Medication: Aggrastat 12.5 mg/250 mL Amount: 14.4 ml/hr Route: I.VJesús rae I, the attending physician, have reviewed and verified all procedure medications. Yes, all medications given per verbal order Report Signatures Finalized by Crow Maldonado MD on 01/28/2022 01:56 PM
--- NOTE | 2022-01-24 18:37 | P.CONIM_ITS ---
Providers/Reason For Consult Consulting Physician/Specialty*: Crow Maldonado MD/ Interventional cardiology Reason for Consult*: ST elevation [place] Requesting Physician: Dr Allen Attending Physician: Brad Allen MD Primary Care Provider: Xavier Jim History of Present Illness History of Present Illness Bisi Anderson is a 71 year old female with past medical history of coronary artery disease with prior PCI of LAD, hypertension, diabetes who was recently admitted to the hospital with hypoglycemia. Interventional cardiology was called as she started having chest pain about 30 to 40 minutes prior. Stat EKG was done that was showing ST elevations in anterior and anterolateral leads. Heart Specialist was emergently activated. Patient is confused. Both primary team and I spoke with patient's daughter regarding consent. She is complaining of severe substernal chest pain. Earlier in the day her echocardiogram showed normal LV systolic function. Her troponins were mildly elevated since admission and she was on NSTEMI protocol. Review of Systems General: Reports: ROS unobtainable due to mental status Neuro: Reports: confusion Medications/Allergies Home Medications Medication Instructions Recorded Confirmed Last Taken Type insulin degludec 100 unit/mL (3 75 unit SUBCUT DAILY 06/01/19 01/23/22 06/07/19 History mL) subcutaneous pen (Tresiba FlexTouch U-100 insulin) meloxicam 15 mg tablet 15 mg PO DAILY 06/01/19 01/23/22 06/07/19 History clopidogrel 75 mg tablet 75 mg PO DAILY 09/13/20 01/23/22 Unknown History losartan 25 mg tablet 25 mg PO DAILY 09/13/20 01/23/22 Unknown History magnesium oxide 400 mg (241.3 mg 400 mg PO BID 09/13/20 01/23/22 Unknown History magnesium) tablet milnacipran 50 mg tablet (Savella) 50 mg PO BID 03/06/21 01/23/22 Unknown History oxycodone-acetaminophen 10 mg-325 1 tab PO Q6H PRN Pain 03/06/21 01/23/22 Unknown History mg tablet suvorexant 20 mg tablet (Belsomra) 20 mg PO BEDTIME PRN Sleep 03/06/21 01/23/22 Unknown History metoprolol succinate 25 mg 25 mg PO DAILY #90 tabs 05/15/21 01/23/22 Unknown Rx tablet,extended release 24 hr atorvastatin 20 mg tablet 20 mg PO DAILY 05/16/21 01/23/22 Unknown History adalimumab 40 mg/0.8 mL 40 mg (0.8 mL) SUBCUT Q14D #2 ea 06/08/21 01/23/22 Unknown Rx subcutaneous pen kit (Humira Pen) hydroxychloroquine 200 mg tablet See Rx Instructions .Route 07/05/21 01/23/22 Unknown Rx .COMPLEX #135 tabs leflunomide 20 mg tablet See Rx Instructions .Route 09/06/21 01/23/22 Unknown Rx .COMPLEX #90 tabs prednisone 5 mg tablet 5 mg PO BID #60 tabs 01/03/22 01/23/22 Unknown Rx fluticasone propionate 50 2 spray intranasal DAILY 01/23/22 01/23/22 Unknown History mcg/actuation nasal spray,suspension pantoprazole 40 mg tablet,delayed 40 mg PO DAILY 01/23/22 01/23/22 Unknown History release pregabalin 100 mg capsule 100 mg PO BID 01/23/22 01/23/22 Unknown History pregabalin 150 mg capsule 150 mg PO BID 01/23/22 01/23/22 Unknown History sitagliptin 50 mg tablet (Januvia) 50 mg PO DAILY 01/23/22 01/23/22 Unknown History sulfasalazine 500 mg tablet 1,000 mg PO BID 01/23/22 01/23/22 Unknown History temazepam 30 mg capsule 30 mg PO BEDTIME 01/23/22 01/23/22 Unknown History Allergies Allergy/AdvReac Type Severity Reaction Status Date / Time lisinopril Allergy Intermediate ADR-Cough Verified 01/23/22 14:23 Current Medications Generic Name Dose Route Start Last Admin Trade Name Georgeq PRN Reason Stop Dose Admin Acetaminophen 500 mg 01/23/22 20:29 01/24/22 08:00 Acetaminophen 500 Mg Tablet PO 500 mg Q4H PRN Administration fever Aspirin 81 mg 01/24/22 09:00 01/24/22 09:33 Aspirin 81 Mg Ec Tablet PO 81 mg DAILY MAYELIN Administration Atorvastatin Calcium 40 mg 01/23/22 21:00 01/23/22 21:40 Atorvastatin 40 Mg Tablet PO 40 mg BEDTIME MAYELIN Administration Clopidogrel Bisulfate 75 mg 01/24/22 09:00 01/24/22 09:33 Clopidogrel 75 Mg Tablet PO 75 mg DAILY MAYELIN Administration Dextrose 50 ml 01/24/22 04:40 01/24/22 04:45 Dextrose 50% Syringe 50 Ml IVP 50 ml Q1H PRN Administration For POC BG less than 80 Enoxaparin Sodium 80 mg 01/24/22 07:00 01/24/22 06:22 Enoxaparin 80 Mg/0.8 Ml Syringe SUBCUT 80 mg Q12H MAYELIN Administration Ceftriaxone Sodium 1,000 mg/ 50 mls @ 100 mls/hr 01/24/22 09:00 01/24/22 13:11 Sodium Chloride IV Infused DAILY MAYELIN Infusion Protocol Dextrose 1,000 mls @ 150 mls/hr 01/23/22 21:15 01/24/22 13:21 D10w IV 150 mls/hr .Q6H40M MAYELIN Administration Nitroglycerin/Dextrose 50 mg in 250 mls @ 0 mls/hr 01/24/22 18:15 01/24/22 18:17 Nitroglycerin Drip IV 20 mcg/min .Q0M MAYELIN 6 mls/hr Administration Protocol Per Protocol Insulin Human Lispro 0 unit 01/24/22 08:00 01/24/22 17:30 Insulin Lispro 100 Unit/1 Ml SUBCUT Not Given TIDWM MAYELIN Protocol Senna/Docusate Sodium 1 tab 01/24/22 09:00 01/24/22 09:33 Sennosides-Docusate Tablet PO 1 tab DAILY MAYELIN Administration PFSH Acute PFSH: Medical History CAD (coronary artery disease) Chest pain High risk medication use History of gastroesophageal reflux (GERD) HTN (hypertension) with goal to be determined Immunization counseling Joint pain Muscle pain Positive ARI (antinuclear antibody) Seropositive rheumatoid arthritis of multiple sites Surgical History History of back surgery History of cholecystectomy History of hysterectomy History of left knee surgery Knee replacement Family History Other CAD (coronary artery disease) Cancer Diabetes Hypertension Denies family history of Rheumatoid arthritis Lupus Hyperlipidemia Lung disease Stroke Social History Smoking and tobacco status: never smoked Second hand smoke exposure: No Alcohol intake: never History of recent travel: No Vitals/I&O/Wt Last Vital Signs Temp 98.5 F 01/24/22 15:48 Pulse 92 01/24/22 15:48 Resp 18 01/24/22 15:48 BP 164/80 01/24/22 15:48 Pulse Ox 98 01/24/22 15:48 O2 Del Method 01/24/22 15:48 O2 Flow Rate 3 01/23/22 21:08 01/24/22 01/24/22 01/24/22 06:59 14:59 22:59 Intake Total 500.000 / 9397.703 1756.5 / 1352.5 240 / 1592.5 Output Total 1900 / 4350 1450 / 1450 2000 / 3450 Balance -1400.000 / -3175.000 -97.5 / -97.5 -1760 / -1857.5 Weight last 48 hrs Weight 176 lb 4.8 oz Weight 165 lb Physical Exam Narrative: GENERAL: Patient is confused HEENT: No cyanosis. No icterus. No pallor. [] HEART: Tachycardic. There is grade 3/6 systolic murmur LUNGS: Clear to auscultate bilaterally. [] ABDOMEN: Soft CENTRAL NERVOUS SYSTEM: Grossly nonfocal. [] EXTREMITIES: Lower extremities with 1+ edema bilaterally. Pulses palpable in the lower extremities, both dorsalis pedis and posterior tibial. [] Urinary Catheter Management: Curtis: Cath Placed During This Visit: yes Reason for Continuing Indwelling Catheter: Accurate Measurement of Urinary Output in Critically Ill Patients Urinary Catheter Date of Insertion: 01/23/22 Urinary Catheter Time of Insertion: 14:56 Data : 01/24/22 03:54 01/24/22 03:54 Micro: Microbiology 01/23/22 14:50 Urine Culture - Preliminary Urine,Clean Catch A&P Assessment and plan (1) HTN (hypertension) with goal to be determined: (2) ST elevation (STEMI) myocardial infarction: (3) Diabetes: (4) Coronary artery disease: Plan Patient has presented with hypoglycemia. She was getting medical therapy for non -ST elevation [place]. About 30-45 minutes ago she started having severe substernal chest pain. STAT Ekg showed ST elevations in anterior and anterolateral leads. Cardiac Heart Specialist emergently activated. As last Lovenox dose is 12 hours back, we will heparinize her. Continue aspirin Plavix We will repeat echocardiogram after cardiac catheterization. Thank you for involving us with care of this patient. We will continue to follow. Please call with questions. Consult Attestations Medical Necessity Statement: Care expected to cross 2 midnights, Coding Level of Care Code Acute Electron Beam Photo Mask Technician for Lakshmig Fwd Diagnoses HTN (hypertension) with goal to be determined I10 ST elevation (STEMI) myocardial infarction I21.3 Diabetes E11.9 Coronary artery disease I25.10
--- NOTE | 2022-01-24 18:37 | W.PM.OPSUD ---
Surgery/Procedure H&P Update DATE OF PROCEDURE: January 24, 2022 DATE H&P PERFORMED: 01/24/22 H&P UPDATE INFORMATION: I have reviewed H&P completed within last 30 days, I have examined patient prior to procedure and No changes to prior documentation PREOP DIAGNOSIS: ST elevation [place] PRIMARY INDICATION FOR PROCEDURE: ST elevation [place] PLANNED PROCEDURE: Left heart cath with possible percutaneous coronary intervention PATIENT REASSESSED PRIOR TO SEDATION, WITH NO CHANGE NOTED: Yes PHYSICAL EXAM: alert, oriented x 3, clear to auscultation bilaterally and regular rate & rhythm AIRWAY EVAL/ANESTHESIA PLAN: ASA III, Local Anesthesia, Risks, benefits & alternatives of sedation and/or procedure discussed and Patient agrees to continue as planned ADDITIONAL INFORMATION: Moderate sedation
--- NOTE | 2022-01-24 18:41 | PC.NURSE ---
1750 patient reporting crushing chest pain tearful and clenching chest EKG performed stat and Stemi noted and called provider at bedside Daughter notified of event permission obtained to perform cardiac cath patient will go to ICU 9 upon completion of cath
[2022-01-24] MEDS: morphine 4 mg/mL SDV 1 mL 2 MG IVP (18:44)
--- NOTE | 2022-01-24 19:09 | ANES.PREANE2 ---
Pre-Anesthetic Assessment Height/Weight: Height 1.57 m Weight 79.968 kg Temp Pulse Resp BP Pulse Ox O2 Del Method O2 Flow Rate 98.5 F 92 22 H 164/80 98 3 01/24/22 15:48 01/24/22 15:48 01/24/22 18:44 01/24/22 15:48 01/24/22 15:48 01/24/22 15:48 01/23/22 21:08 Preop Diagnosis: left knee end stage DJD Heart Cath Familial anesthetic complications: none Was Beta Adia taken within 24 hours: Yes Was Clonidine taken within 24 hours: N/A Social No alcohol and No tobacco Exam alert, oriented x 3, clear to auscultation bilaterally and regular rate & rhythm Airway Submandibular: within normal limits Cervical ROM: within normal limits Mallampati: Class II CV/HEM Coronary Artery Disease, Hypertension and Myocardial Infarction GI Gastroesophageal Reflux Disease Metabolic Diabetes Mellitus, Hyperlipidemia and Morbid Obesity Musc/skel Lower Back Pain and Rheumatoid Arthritis Anesthetic Plan ASA status: 4E Anesthesia: MAC Other: Case in progress as we arrived, patient had been given 1mg versed and 50mcg of fent by pathology lab technician RN. NSTEMI Medications/Allergies Home Medications Medication Instructions Recorded Confirmed Last Taken Type insulin degludec 100 unit/mL (3 75 unit SUBCUT DAILY 06/01/19 01/23/22 06/07/19 History mL) subcutaneous pen (Tresiba FlexTouch U-100 insulin) meloxicam 15 mg tablet 15 mg PO DAILY 06/01/19 01/23/22 06/07/19 History clopidogrel 75 mg tablet 75 mg PO DAILY 09/13/20 01/23/22 Unknown History losartan 25 mg tablet 25 mg PO DAILY 09/13/20 01/23/22 Unknown History magnesium oxide 400 mg (241.3 mg 400 mg PO BID 09/13/20 01/23/22 Unknown History magnesium) tablet milnacipran 50 mg tablet (Savella) 50 mg PO BID 03/06/21 01/23/22 Unknown History oxycodone-acetaminophen 10 mg-325 1 tab PO Q6H PRN Pain 03/06/21 01/23/22 Unknown History mg tablet suvorexant 20 mg tablet (Belsomra) 20 mg PO BEDTIME PRN Sleep 03/06/21 01/23/22 Unknown History metoprolol succinate 25 mg 25 mg PO DAILY #90 tabs 05/15/21 01/23/22 Unknown Rx tablet,extended release 24 hr atorvastatin 20 mg tablet 20 mg PO DAILY 05/16/21 01/23/22 Unknown History adalimumab 40 mg/0.8 mL 40 mg (0.8 mL) SUBCUT Q14D #2 ea 06/08/21 01/23/22 Unknown Rx subcutaneous pen kit (Humira Pen) hydroxychloroquine 200 mg tablet See Rx Instructions .Route 07/05/21 01/23/22 Unknown Rx .COMPLEX #135 tabs leflunomide 20 mg tablet See Rx Instructions .Route 09/06/21 01/23/22 Unknown Rx .COMPLEX #90 tabs prednisone 5 mg tablet 5 mg PO BID #60 tabs 01/03/22 01/23/22 Unknown Rx fluticasone propionate 50 2 spray intranasal DAILY 01/23/22 01/23/22 Unknown History mcg/actuation nasal spray,suspension pantoprazole 40 mg tablet,delayed 40 mg PO DAILY 01/23/22 01/23/22 Unknown History release pregabalin 100 mg capsule 100 mg PO BID 01/23/22 01/23/22 Unknown History pregabalin 150 mg capsule 150 mg PO BID 01/23/22 01/23/22 Unknown History sitagliptin 50 mg tablet (Januvia) 50 mg PO DAILY 01/23/22 01/23/22 Unknown History sulfasalazine 500 mg tablet 1,000 mg PO BID 01/23/22 01/23/22 Unknown History temazepam 30 mg capsule 30 mg PO BEDTIME 01/23/22 01/23/22 Unknown History Allergies Allergy/AdvReac Type Severity Reaction Status Date / Time lisinopril Allergy Intermediate ADR-Cough Verified 01/23/22 14:23 Current Medications Generic Name Dose Route Start Last Admin Trade Name Freq PRN Reason Stop Dose Admin Acetaminophen 500 mg 01/23/22 20:29 01/24/22 08:00 Acetaminophen 500 Mg Tablet PO 500 mg Q4H PRN Administration fever Aspirin 81 mg 01/24/22 09:00 01/24/22 09:33 Aspirin 81 Mg Ec Tablet PO 81 mg DAILY MAYELIN Administration Atorvastatin Calcium 40 mg 01/23/22 21:00 01/23/22 21:40 Atorvastatin 40 Mg Tablet PO 40 mg BEDTIME MAYELIN Administration Clopidogrel Bisulfate 75 mg 01/24/22 09:00 01/24/22 09:33 Clopidogrel 75 Mg Tablet PO 75 mg DAILY MAYELIN Administration Dextrose 50 ml 01/24/22 04:40 01/24/22 04:45 Dextrose 50% Syringe 50 Ml IVP 50 ml Q1H PRN Administration For POC BG less than 80 Enoxaparin Sodium 80 mg 01/24/22 07:00 01/24/22 06:22 Enoxaparin 80 Mg/0.8 Ml Syringe SUBCUT 80 mg Q12H MAYELIN Administration Ceftriaxone Sodium 1,000 mg/ 50 mls @ 100 mls/hr 01/24/22 09:00 01/24/22 13:11 Sodium Chloride IV Infused DAILY MAYELIN Infusion Protocol Dextrose 1,000 mls @ 150 mls/hr 01/23/22 21:15 01/24/22 13:21 D10w IV 150 mls/hr .Q6H40M MAYELIN Administration Nitroglycerin/Dextrose 50 mg in 250 mls @ 0 mls/hr 01/24/22 18:15 01/24/22 18:17 Nitroglycerin Drip IV 20 mcg/min .Q0M MAYELIN 6 mls/hr Administration Protocol Per Protocol Insulin Human Lispro 0 unit 01/24/22 08:00 01/24/22 17:30 Insulin Lispro 100 Unit/1 Ml SUBCUT Not Given TIDWM MAYELIN Protocol Senna/Docusate Sodium 1 tab 01/24/22 09:00 01/24/22 09:33 Sennosides-Docusate Tablet PO 1 tab DAILY MAYELIN Administration PFSH Anesthesia Medical History CAD (coronary artery disease) Chest pain High risk medication use History of gastroesophageal reflux (GERD) HTN (hypertension) with goal to be determined Immunization counseling Joint pain Muscle pain Positive ARI (antinuclear antibody) Seropositive rheumatoid arthritis of multiple sites Surgical History History of back surgery History of cholecystectomy History of hysterectomy History of left knee surgery Knee replacement Family History Other CAD (coronary artery disease) Cancer Diabetes Hypertension Denies family history of Rheumatoid arthritis Lupus Hyperlipidemia Lung disease Stroke Social History Smoking and tobacco status: never smoked Second hand smoke exposure: No Alcohol intake: never History of recent travel: No Data Anesthesia : 01/24/22 03:54 01/24/22 03:54 Short CBC 01/23/22 01/24/22 Range/Units 21:01 03:54 WBC 7.3 5.8 (4.0-10.0) 10^3/uL Hgb 10.4 L 9.4 L (11.5-15.3) g/dL Hct 33.6 L 30.4 L (37.0-47.0) % MCV 90.1 91.0 (81-99) fl Plt Count 197 164 (130-400) 10^3/cmm Neut % (Auto) 65.7 51.8 % Neut # (Auto) 4.82 2.99 (1.8-7.7) 10^3/uL BMP 01/23/22 01/24/22 21:01 03:54 Sodium 138 137 Potassium 4.7 4.1 Chloride 97 L 98 Carbon Dioxide 29 30 H BUN 15 12 Creatinine 0.9 0.9 Glucose 47 L 66 Calcium 9.7 9.0 Cardiac Enzymes 01/23/22 01/24/22 Range/Units 21:01 18:00 Troponin T Baseline 97 H (0-10) ng/L NT-Pro-B Natriuret Pep 3232 H (0-125) pg/mL Liver Function 01/24/22 Range/Units 03:54 Total Bilirubin 0.3 (0.15-1.2) mg/dL AST 25 (0-32) U/L ALT 17 (0-33) U/L Alkaline Phosphatase 41 (35-105) U/L Albumin 3.4 L (3.5-5.2) g/dL Urine 01/23/22 Range/Units 14:50 Urine Color Yellow (Yellow) Urine Appearance Clear (CLEAR) Urine pH 7 (5-7) Ur Specific [place] 1.000 L (1.005-1.030) Urine Protein Neg Urine Glucose (UA) 1+ H (Normal) Urine Ketones Negative (Negative) Urine Nitrate Negative Urine Bilirubin Neg (Negative) Ur Leukocyte Esterase Negative Urine RBC >100 H (0-2) /hpf Urine WBC 0-4 H (0-5) /hpf Coags 01/23/22 21:01 D-Dimer 0.51 Microbiology 01/23/22 14:50 Urine Culture - Preliminary Urine,Clean Catch Cardiac Studies: Echocardiogram 01/23/22 Echocardiogram Ultrasound 10/20/20 Sestamibi Stress Test (Cardiology) 11/09/20
--- NOTE | 2022-01-24 19:49 | PM.MISC ---
Miscellaneous Note Purpose of Documentation: Brief procedure Note Note: Patient had total thrombotic occlusion of distal LAD. S/p successful revascularization with balloon angioplasty. Has slow flow. Stent not placed because of distal location and small caliber vessel. Patent RCA and LCx. Continue aspirin and Plavix High intensity statin therapy Aggrastat gtt for 4 hours Medical therapy for hypoglycemia/ diabete per primary team
[2022-01-24] MEDS: metoprolol tartrate 50 mg Tablet PO (20:08)
[2022-01-24 20:16] LABS: Glucose Point of Care 122 mg/dL (70-110)
--- NOTE | 2022-01-24 20:30 | PC.NURSE ---
Patient placed in knee mobilizer.
[2022-01-24 20:40] LABS: Glucose Point of Care 144 mg/dL (70-110)
[2022-01-24] MEDS: atorvastatin 40 mg Tablet PO (20:50)
[2022-01-24] MEDS: ALPRAZolam 0.5 mg Tablet 0.25 MG PO (20:50)
[2022-01-24] MEDS: sodium chloride 0.9% 1,000 ML 100 ML IV (20:50)
[2022-01-24 21:09] LABS: Troponin 5 2HR 494.3 ng/L (0-10); Troponin 5 2HR Delta 397.3 ABS# (0-10)
--- NOTE | 2022-01-24 21:26 | ECG_ITS ---
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 Measurements Intervals [place] Rate: 70 P: 59 PA: 152 QRS: 5 QRSD: 78 T: 93 QT: 411 QTc: 444 Interpretive Statements SINUS RHYTHM POSSIBLE ANTERIOR MYOCARDIAL INFARCTION , OF INDETERMINATE AGE [30 ms Q WAVE IN V3/V4, OR R < 0.2 mV IN V4] INFERIOR MYOCARDIAL INFARCTION , OF INDETERMINATE AGE [40+ ms Q WAVE AND/OR ST/T ABNORMALITY IN II/aVF] Compared to ECG 01/24/2022 17:53:33 Sinus tachycardia no longer present ST (T wave) deviation no longer present Myocardial infarct finding still present Electronically Signed On 01-25-2022 8:51:59 CDT by Crow Maldonado M.D. [id number]
[2022-01-24 22:07] LABS: Glucose Point of Care 113 mg/dL (70-110)
[2022-01-24] MEDS: hyDRALAzine 20 mg/mL INJ 1 mL 10 MG IVP (22:11)
[2022-01-24] MEDS: temazepam 15 mg Capsule PO (22:20)
[2022-01-24] MEDS: morphine 4 mg/mL SDV 1 mL 0.5 MG IVP (23:20)
--- NOTE | 2022-01-24 23:50 | ECG_ITS ---
[facility] Test Date: 2022-01-25 Pat Name: Bisi Anderson Department: Room: [facility] Gender: Female [employer] E Business Developer: : 1950 Requested By: Brad Allen Order Number: [id number] Lee Ann MD: Carie Lucio M.D. Measurements Intervals [place] Rate: 89 P: 59 GA: 169 QRS: -1 QRSD: 70 T: 86 QT: 375 QTc: 457 Interpretive Statements SINUS RHYTHM ANTERIOR MYOCARDIAL INFARCTION , OF INDETERMINATE AGE [40+ ms Q WAVE AND/OR ST/T ABNORMALITY IN V3/V4] INFERIOR MYOCARDIAL INFARCTION , OF INDETERMINATE AGE [40+ ms Q WAVE AND/OR ST/T ABNORMALITY IN II/aVF] Compared to ECG 01/24/2022 21:26:33 No significant changes Electronically Signed On 01-25-2022 20:39:41 CDT by Carie Lucio M.D. [id number]
[2022-01-24 23:52] LABS: Troponin 5 6HR 1029 ng/L (0-10)
[2022-01-24 23:53] LABS: Troponin 5 6HR Delta 932 ng/L (0-12)
[2022-01-24] MEDS: dextrose 50% syringe 50 mL 25 ML IVP (23:55)
[2022-01-25] VITALS (26 sets, daily range): BP systolic 91–185; BP diastolic 49–101; PULSE 86–125; RESP 9–27; TEMP 36.4–36.9; O2SAT 91–100
--- NOTE | 2022-01-25 | PC.NURSE ---
Patient's glucose 61. Gave 1 amp of d50 per Dr. Jorge. Also restarted D10 drip back at 100ml/hr. Recheck 15 minutes later was 122. Will continue to monitor.
[2022-01-25 00:01] LABS: Glucose Point of Care 61 mg/dL (70-110)
[2022-01-25] MEDS: dextrose 50% syringe 50 mL 25 ML IVP (00:01)
[2022-01-25] MEDS: dextrose 10% 1,000 ML 100 ML IV ×3 (00:04→20:54)
[2022-01-25 00:14] LABS: Glucose Point of Care 122 mg/dL (70-110)
[2022-01-25 00:42] LABS: Glucose Point of Care 147 mg/dL (70-110)
[2022-01-25] MEDS: ondansetron 2 mg/ML SDV 2 mL 4 MG IVP ×2 (01:21→08:01)
[2022-01-25 01:52] LABS: Glucose Point of Care 98 mg/dL (70-110)
[2022-01-25] MEDS: morphine 4 mg/mL SDV 1 mL 0.5 MG IVP (03:40)
[2022-01-25 03:50] LABS: Glucose Point of Care 92 mg/dL (70-110)
[2022-01-25 03:58] LABS: Partial Thromboplastin Time 24.2 SECONDS (23.9-36.7)
[2022-01-25 04:02] LABS: Blood Urea Nitrogen 10 mg/dL (8-23); Calcium 9.9 mg/dL (8.5-10.5); Carbon Dioxide 26 mmol/L (22-29); Chloride 94 mmol/L (98-107); Glucose 88 mg/dL (65-115); Osmolality Calculated 270 mOsm/kg (285-295); Sodium 131 mmol/L (136-145)
[2022-01-25 04:17] LABS: Anion Gap 15.5 (5-19); Potassium 4.5 mmol/L (3.5-5.1)
[2022-01-25] MEDS: hyDRALAzine 20 mg/mL INJ 1 mL 10 MG IVP (05:03)
[2022-01-25] MEDS: fentaNYL 50 mcg/mL INJ 2mL IVP (05:05)
[2022-01-25 05:50] LABS: Glucose Point of Care 76 mg/dL (70-110)
--- NOTE | 2022-01-25 05:52 | PC.NURSE ---
Patient given apple juice at this time.
--- NOTE | 2022-01-25 05:57 | PC.NURSE ---
Sheath removed @0520 by Indra Singletary RN. Pressure held for 20 min, no hematoma or external bleeding present. Occlusive dressing applied. Patient tolerated well.
[2022-01-25 07:01] LABS: Glucose Point of Care 74 mg/dL (70-110)
[2022-01-25] MEDS: clopidogrel 75 mg Tablet PO (08:02)
[2022-01-25] MEDS: cefTRIAXone 1,000 MG in sodium chloride 0.9% (plus) 50 ML 100 MG IV (08:02)
[2022-01-25] MEDS: sennosides-docusate Tablet 1 TAB PO (08:02)
[2022-01-25] MEDS: aspirin 81 mg EC Tablet PO (08:03)
--- NOTE | 2022-01-25 08:39 | CT_ITS ---
WS: [id number] CT LUMBAR SPINE, noncontrast. HISTORY: Low back pain. TECHNIQUE: Contiguous 2.5 mm axial imaging are performed. Sagittal and coronal reformats are submitte d and reviewed. All CT scans at [facility] use at least one of these dose optimization techni ques: automated exposure control; mA and/or kV adjustment per patient size (includes targeted exams w here dose is matched to clinical indication); or iterative reconstruction. IV contrast: None DLP: 895.57 mGy.cm COMPARISON: 03/23/2020 L4 anterolisthesis by 6.6 mm. Suspected bilateral pars defects. Mild LEFT curvature of the lumbar spi ne. Asymmetric disc space narrowing at L4-5. L4 invagination into the RIGHT lateral L5 vertebral body . L1-2: Mild disc bulging. No stenosis. L2-3: Mild annular disc bulging with mild encroachment and narrowing of the LEFT subarticular recess. L3-4: Mild annular disc bulging and osteophytic ridging. Mild facet joint arthritis and ligamentum fl avum arthritis. Mild central and bilateral subarticular recess stenosis. L4-5: Diffuse osteophytic encroachment and partially calcified disc. Thecal sac is being deformed by the asymmetric L4 vertebral body as compared to L5. Thecal sac is being deformed. There is a high-gra de central with bilateral subarticular recess and foraminal stenosis. There is significant encroachme nt upon the L4 and L5 nerve roots but greatest involving the RIGHT L4 and L5 nerve roots. L5-S1: Bilateral facet joint arthritis. L2 disc bulging encroaching upon the subarticular recesses. M ild contact on the S1 nerve roots bilaterally, LEFT greater than RIGHT. Mild atherosclerosis aorta. 1.5 cm low-attenuation lesion LEFT kidney. Suspect renal cyst. CT/CT lumbar spine wo con* [id number] IMPRESSION: 1. Grade 1 anterolisthesis of L4 with asymmetric disc space narrowing. L4 inva gination into the RIGHT lateral L5 vertebral body. 2. Severe central, bilateral subarticular recess and foraminal stenosis at L4- 5. Most significant stenosis involving the RIGHT L4 and L5 nerve roots. 3. Mild central and bilateral subarticular recess stenosis at L3-4.
[2022-01-25] MEDS: octreotide 500 MCG in sodium chloride 0.9% (100 ml) 100 ML 10.1 MCG IV (08:53)
[2022-01-25] MEDS: metoclopramide 5 mg/mL SDV 2 mL IVP (09:14)
[2022-01-25] MEDS: ALPRAZolam 0.5 mg Tablet PO (09:57)
[2022-01-25] MEDS: morphine 4 mg/mL SDV 1 mL 2 MG IVP (10:11)
[2022-01-25 10:37] LABS: Glucose Point of Care 109 mg/dL (70-110)
--- NOTE | 2022-01-25 11:00 | P.PN_ITS ---
Subjective Subjective: Patient is nauseous however no active emesis Blood sugar is in 80s Currently on D10 I have asked nurse to start octreotide drip She can be transferred upstairs if blood sugar is above 120 No active chest pain Hemodynamically stable Balloon angioplasty done yesterday no active chest pain Vitals/I&O/Wt Last Vital Signs Temp 97.6 F 01/25/22 04:00 Pulse 104 H 01/25/22 10:00 Resp 27 H 01/25/22 10:00 BP 136/73 01/25/22 09:30 Pulse Ox 97 01/25/22 10:00 O2 Del Method 01/25/22 08:06 O2 Flow Rate 3 01/24/22 20:00 01/24/22 01/25/22 01/25/22 22:59 06:59 14:59 Intake Total 1240 / 2592.5 385 / 2977.5 1236.667 / 1236.667 Output Total 3250 / 4700 1750 / 6450 Balance -2010 / -2107.5 -1365 / -3472.5 1236.667 / 1236.667 Weight last 48 hrs Weight 79.968 kg Weight 74.843 kg Physical Exam Narrative: Currently awake and alert Looks euvolemic Abdomen soft Active experience of nausea Hemodynamic stable Blood sugar in 80s No active signs of confusion Daughter at the bedside She does not look fluid overloaded Abdomen is soft Complaining of back pain restless and agitated Emotionally labile Urinary Catheter Management: Curtis: Cath Placed During This Visit: yes Reason for Continuing Indwelling Catheter: Accurate Measurement of Urinary Output in Critically Ill Patients Urinary Catheter Date of Insertion: 01/23/22 Urinary Catheter Time of Insertion: 14:56 Data : 01/24/22 03:54 01/25/22 03:42 Micro: Microbiology 01/23/22 14:50 Urine Culture - Final Urine,Clean Catch A&P Assessment and plan (1) ST elevation (STEMI) myocardial infarction: (2) Lumbar disc disease with radiculopathy: (3) Facet arthropathy, lumbar: (4) Seropositive rheumatoid arthritis of multiple sites: (5) HTN (hypertension) with goal to be determined: (6) CAD (coronary artery disease): Qualifiers: Coronary Disease-Associated Artery/Lesion type: [place] artery [place] vs. transplanted heart: [place] heart Associated angina: with stable angina Qualified Code(s): I25.118 - Atherosclerotic heart disease of [place] coronary artery with other forms of angina pectoris (7) Diabetes: (8) Insulin overdose: (9) Hypoglycemia: Plan STEMI was called 01/24 STEMI status post balloon angioplasty no active chest pain Currently on aspirin, Plavix, Finish 40 dose of Lovenox Currently on DVT prophylactic regimen Hypoglycemia related to insulin overdose She took 80 units of Lantus at home Started octreotide drip Currently on D10 Active signs of confusion related to hypoglycemia Rheumatoid arthritis radiculopathy Complaining of back pain Requested another CT scan of lumbar area to rule out compression fracture She is suffering from sciatica as well Anxiety, depression Started escitalopram and Xanax 3 times daily as needed Patient will be discharged home once her hypoglycemia improves Currently she is requiring ICU with octreotide drip for her hypoglycemia despite being on D10 Hemoglobin A1c is 6 she does not need 4 units of Lantus anymore I did convey to the family and the patient Migraine: Improved Currently on consistent carb diet Full code DVT prophylaxis on board Refused senior care placement Attestations Medical Necessity Statement*: She can be transferred out of ICU once blood sugar is stable Time Spent in Patient Care: 40 Coding Level of Care Code Acute Medical Billing Manager for g Fwd Diagnoses ST elevation (STEMI) myocardial infarction I21.3 Lumbar disc disease with radiculopathy M51.16 Facet arthropathy, lumbar M47.816 Seropositive rheumatoid arthritis of multiple sites M05.79 HTN (hypertension) with goal to be determined I10 CAD (coronary artery disease) I25.118 Coronary Disease-Associated Artery/Lesion type: [place] artery [place] vs. transplanted heart: [place] heart Associated angina: with stable angina Diabetes E11.9 Insulin overdose T38.3X1A Hypoglycemia E16.2
[2022-01-25] MEDS: escitalopram 10 mg Tablet PO (11:53)
[2022-01-25] MEDS: enoxaparin 40 mg/0.4 mL Syringe SUBCUT (11:54)
--- NOTE | 2022-01-25 12:27 | PM.PN ---
Subjective Subjective: Patient is doing well. Was found to have total thrombotic occlusion of distal LAD s/p successful revascularization with balloon angioplasty. EKG changes of ST elevation have resolved. She is chest pain-free. Has some nausea and has thrown up overnight. Vitals/I&O/Wt Last Vital Signs Temp 97.6 F 01/25/22 11:58 Pulse 95 01/25/22 11:58 Resp 16 01/25/22 11:58 BP 146/80 01/25/22 11:58 Pulse Ox 98 01/25/22 11:58 O2 Del Method 01/25/22 11:58 O2 Flow Rate 3 01/24/22 20:00 01/24/22 01/25/22 01/25/22 22:59 06:59 14:59 Intake Total 1240 / 2592.5 385 / 2977.5 1236.667 / 1236.667 Output Total 3250 / 4700 1750 / 6450 Balance -2010 / -2107.5 -1365 / -3472.5 1236.667 / 1236.667 Weight last 48 hrs Weight 176 lb 4.8 oz Physical Exam Narrative: GENERAL: Patient is alert. HEENT: No cyanosis. No icterus. No pallor. [] HEART: S1 and S2, there is grade 3/6 systolic murmur LUNGS: Clear to auscultate bilaterally. [] ABDOMEN: Soft CENTRAL NERVOUS SYSTEM: Grossly nonfocal. [] EXTREMITIES: Lower extremities with 1+ edema bilaterally. Pulses palpable in the lower extremities, both dorsalis pedis and posterior tibial. [] Urinary Catheter Management: Curtis: Cath Placed During This Visit: yes Reason for Continuing Indwelling Catheter: Accurate Measurement of Urinary Output in Critically Ill Patients Urinary Catheter Date of Insertion: 01/23/22 Urinary Catheter Time of Insertion: 14:56 Data : 01/26/22 04:45 01/26/22 04:45 Micro: Microbiology 01/23/22 14:50 Urine Culture - Final Urine,Clean Catch A&P Assessment and plan (1) HTN (hypertension) with goal to be determined: (2) ST elevation (STEMI) myocardial infarction: (3) Diabetes: (4) Coronary artery disease: Plan Patient presented with hypoglycemia. Had mild troponin elevation also treated medically for NSTEMI. However developed severe chest pain and had ST elevation on EKG while on medical floor. [place] was emergently activated and cardiac cath demonstrated total thrombotic occlusion of distal LAD. She underwent successful revascularization with balloon angioplasty. Stenting was not performed given very distal location of thrombus and size of the vessel. Patient is stable now. Continue aspirin and Plavix LV gram demonstrated mildly reduced LV function with severe apical hypokinesis. Thank you for involving us with care of this patient. We will continue to follow. Please call with questions. Attestations Medical Necessity Statement*: Care expected to cross 2 midnights Coding Level of Care Code Acute Construction Consultant for Chg Fwd Diagnoses HTN (hypertension) with goal to be determined I10 ST elevation (STEMI) myocardial infarction I21.3 Diabetes E11.9 Coronary artery disease I25.10
[2022-01-25 13:01] LABS: Cortisol Random 17.65 ug/dL (2.47-19.5)
[2022-01-25 14:28] LABS: Glucose Point of Care 131 mg/dL (70-110)
[2022-01-25 16:23] LABS: Glucose Point of Care 40 mg/dL (70-110)
[2022-01-25 16:43] LABS: Glucose Point of Care 41 mg/dL (70-110)
[2022-01-25 17:14] LABS: Glucose Point of Care 85 mg/dL (70-110)
--- NOTE | 2022-01-25 17:21 | PC.NURSE ---
Gely elizabeth with [facility] in home care [phone] called to check on the patient as they see her 3 times a week now.
[2022-01-25] MEDS: hydrocortisone 100 mg/2 mL SDV IVP (17:30)
[2022-01-25 18:12] LABS: Glucose Point of Care 92 mg/dL (70-110)
--- NOTE | 2022-01-25 18:55 | PC.NURSE ---
Report given to Kirstin TRIMBLE at this time
[2022-01-25 20:11] LABS: Glucose Point of Care 149 mg/dL (70-110)
[2022-01-25] MEDS: atorvastatin 40 mg Tablet PO (20:57)
[2022-01-25 22:50] LABS: Glucose Point of Care 101 mg/dL (70-110)
[2022-01-26] VITALS (7 sets, daily range): BP systolic 129–155; BP diastolic 79–84; PULSE 92–112; RESP 16–18; TEMP 36.4–36.7; O2SAT 94–97
[2022-01-26 00:41] LABS: Glucose Point of Care 138 mg/dL (70-110)
[2022-01-26 01:50] LABS: Glucose Point of Care 147 mg/dL (70-110)
[2022-01-26] MEDS: ondansetron 2 mg/ML SDV 2 mL 4 MG IVP (03:14)
[2022-01-26 03:43] LABS: Glucose Point of Care 138 mg/dL (70-110)
[2022-01-26] MEDS: hydrocortisone 100 mg/2 mL SDV IVP (04:08)
[2022-01-26] MEDS: metoclopramide 5 mg/mL SDV 2 mL IVP (04:09)
[2022-01-26] MEDS: morphine 4 mg/mL SDV 1 mL 2 MG IVP (05:00)
[2022-01-26 05:07] LABS: Basophils % 0.4 %; Eosinophils % 0.1 %; Hematocrit 36.9 % (37.0-47.0); Hemoglobin 11.8 g/dL (11.5-15.3); Lymphocytes # 1.7 10^3/uL (0.8-4.8); Mean Corpuscular Hemoglobin 27.8 pg (28.0-34.0); Mean Corpuscular Volume 86.8 fl (81-99); Mean Platelet Volume 10.2 fL (7.4-10.4); Monocytes # 0.8 10^3/uL (0.2-0.9); Neutrophils # 5.22 10^3/uL (1.8-7.7); Nucleated Red Blood Cells % 0 %; Platelet Count 225 10^3/cmm (130-400); Red Blood Count 4.25 10^6/uL (4.1-5.3); Red Cell Distribution Width 15.2 % (12.1-15.1); White Blood Count 7.8 10^3/uL (4.0-10.0)
[2022-01-26 05:35] LABS: Anion Gap 17.1 (5-19); Blood Urea Nitrogen 13 mg/dL (8-23); Calcium 9.6 mg/dL (8.5-10.5); Carbon Dioxide 24 mmol/L (22-29); Chloride 87 mmol/L (98-107); Glucose 97 mg/dL (65-115); Magnesium 1.6 mg/dL (1.7-2.3); Osmolality Calculated 258 mOsm/kg (285-295); Potassium 4.1 mmol/L (3.5-5.1); Sodium 124 mmol/L (136-145)
--- NOTE | 2022-01-26 07:13 | ANE.PACU2 ---
Inpatient post-anesthesia follow up: Airway intact: Yes Vital signs: Temperature 97.5 F Pulse Rate 95 Respiratory Rate 16 Blood Pressure 129/84 Pulse Oximetry 96 Oxygen Delivery Me thod Room Air Oxygen Flow Rate 3 Fraction of Inspir ed Oxygen Hydration adequate: Yes Nausea and vomiting: Yes Pain level: 1 Mental status: Baseline
--- NOTE | 2022-01-26 08:06 | P.PN_ITS ---
Subjective Subjective: Patient is stable. No chest pain. Vitals/I&O/Wt Last Vital Signs Temp 98.1 F 01/26/22 07:50 Pulse 96 01/26/22 07:50 Resp 16 01/26/22 07:50 BP 150/80 01/26/22 07:50 Pulse Ox 97 01/26/22 07:50 O2 Del Method 01/26/22 07:50 O2 Flow Rate 3 01/24/22 20:00 01/25/22 01/26/22 01/26/22 22:59 06:59 14:59 Intake Total 1201 / 2437.667 740 / 3177.667 Balance 1201 / 2437.667 740 / 3177.667 Weight last 48 hrs Weight 159 lb 12.8 oz Physical Exam Narrative: GENERAL: Patient is alert. HEENT: No cyanosis. No icterus. No pallor. [] HEART: S1 and S2, there is grade 3/6 systolic murmur LUNGS: Clear to auscultate bilaterally. [] ABDOMEN: Soft CENTRAL NERVOUS SYSTEM: Grossly nonfocal. [] EXTREMITIES: Lower extremities with 1+ edema bilaterally. Pulses palpable in the lower extremities, both dorsalis pedis and posterior tibial. [] Urinary Catheter Management: Curtis: Cath Placed During This Visit: yes, but has since been removed by the nurse Reason for Continuing Indwelling Catheter: Other Urinary Catheter Date of Insertion: 01/23/22 Urinary Catheter Time of Insertion: 14:56 Date Urinary Catheter Removed: 01/25/22 Time Urinary Catheter Discontinued: 18:11 Data : 01/26/22 04:45 01/26/22 04:45 Micro: Microbiology 01/23/22 14:50 Urine Culture - Final Urine,Clean Catch A&P Assessment and plan (1) HTN (hypertension) with goal to be determined: (2) ST elevation (STEMI) myocardial infarction: (3) Diabetes: (4) Coronary artery disease: Plan Patient is overall stable. Status post balloon angioplasty of distal LAD. Continue aspirin and Plavix. Thank you for involving us with care of this patient. Patient is stable to be discharged from cardiology standpoint. Please call with questions. Attestations Medical Necessity Statement*: Care expected to cross 2 midnights Coding Level of Care Code Acute Supervisor Public Health Nursing for [facility] Fwd Diagnoses HTN (hypertension) with goal to be determined I10 ST elevation (STEMI) myocardial infarction I21.3 Diabetes E11.9 Coronary artery disease I25.10
[2022-01-26 08:07] LABS: Glucose Point of Care 109 mg/dL (70-110)
[2022-01-26 09:02] LABS: Glucose Point of Care 91 mg/dL (70-110)
[2022-01-26] MEDS: cyanocobalamin 1,000 mcg Tablet 1000 MCG PO (09:14)
[2022-01-26] MEDS: escitalopram 10 mg Tablet PO (09:14)
[2022-01-26] MEDS: clopidogrel 75 mg Tablet PO (09:14)
[2022-01-26] MEDS: sennosides-docusate Tablet 1 TAB PO (09:14)
[2022-01-26] MEDS: cefTRIAXone 1,000 MG in sodium chloride 0.9% (plus) 50 ML 100 MG IV (09:15)
[2022-01-26] MEDS: aspirin 81 mg EC Tablet PO (09:15)
[2022-01-26 09:26] LABS: Glucose Point of Care 104 mg/dL (70-110)
--- NOTE | 2022-01-26 09:42 | P.DS_ITS ---
Discharge Providers Date of Admission: 01/23/22 17:10 Date of Discharge: January 26, 2022 Attending Provider at Admission: Brad Allen MD Attending Provider at Discharge: Brad Allen MD Primary Care Provider: Xavier Jim Diagnoses at Discharge Discharge Diagnosis (1) HTN (hypertension) with goal to be determined: Status: Acute (2) ST elevation (STEMI) myocardial infarction: Status: Acute (3) Diabetes: Status: Acute (4) Coronary artery disease: Status: Acute Reason for Visit Reason for Visit: low blood sugar Hospital Course Hospital Course 71-year-old female who was admitted to the hospital for confusion related to hypoglycemia. Her hemoglobin A1c is 6 she has been taking extra dose of Tresiba to make it 80 units at home because her sugar was high. It took a lot of effort to bring her sugar above 100 she was kept on D10 and required intermittent octreotide and IV steroids. At home she takes prednisone 5 mg twice daily for her rheumatoid arthritis. Her cortisol level was not suppressed. TSH normal. No typical signs of insulinoma abdomen CT scan unremarkable. She does have degenerative joint disease and her CT scan of the lumbar area does show significant stenosis she does take education for her neuropathic pain. She lives with her son. At the time of discharge I have counseled patient to take prednisone 40 mg for 3 days, 30 mg for 3 days 20 mg for 2 days and then continue 10 mg daily. Please note she was diagnosed with NSTEMI at the time of admission next day she refused stress test, in the evening STEMI was called when ST segment elevation was noted in V3 to V6, Dr. Maldonado was consulted, balloon angioplasty was done from distal LAD occlusion balloon angioplasty open the vessel she was kept on Aggrastat. No stent was placed. Physical Exam Narrative: Currently awake a nd alert Looks euv olemic Abdomen sof t Hemodynamic stab le Blood sugar in 80s No active sign s of confusion She does not look flu id overloaded Abdo men is soft Urinary Catheter Management: Curtis: Cath Placed During This Visit: yes, but has since been removed by the nurse Reason for Continuing Indwelling Catheter: Other Urinary Catheter Date of Insertion: 01/23/22 Urinary Catheter Time of Insertion: 14:56 Date Urinary Catheter Removed: 01/25/22 Time Urinary Catheter Discontinued: 18:11 Discharge Data Studies Completed and Pending Completed Studies During Hospitalization Category Date Time Status CT abdomen pelvis wo con [id number] Stat Cat Scan 01/23/22 11:[address] head wo con* [id number] Stat Cat Scan 01/23/22 11:[address] lumbar spine wo con* [id number] Routine Cat Scan 01/25/22 08:39 Completed CV. 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 No acute intracranial hemorrhage or edema. 2. Mild atrophy and small vessel ischemic disease. No progression since 2018. Abdomen/Pelvis CT 01/23/22 11:51 IMPRESSION: 1. No acute abdominal or pelvic abnormalities are identified. 2. Very minimal dilatation of the RIGHT renal pelvis but no obstructing stone identified. 3. Atherosclerosis aorta. 4. Constipation with no obstruction. 5. The appendix is not identified. 6. Moderately distended urinary bladder. 7. Gallbladder not identified and probably surgically removed. Lumbar Spine CT 01/25/22 08:39 IMPRESSION: 1. Grade 1 anterolisthesis of L4 with asymmetric disc space narrowing. L4 invagination into the RIGHT lateral L5 vertebral body. 2. Severe central, bilateral subarticular recess and foraminal stenosis at L4- 5. Most significant stenosis involving the RIGHT L4 and L5 nerve roots. 3. Mild central and bilateral subarticular recess stenosis at L3-4. Laboratory Results WBC 7.8 10^3/uL (4.0-10.0) 01/26/22 04:45 RBC 4.25 10^6/uL (4.1-5.3) 01/26/22 04:45 Hgb 11.8 g/dL (11.5-15.3) 01/26/22 04:45 Hct 36.9 % (37.0-47.0) L 01/26/22 04:45 MCV 86.8 fl (81-99) 01/26/22 04:45 MCH 27.8 pg (28.0-34.0) L 01/26/22 04:45 MCHC 32.0 g/dL (30.0-36.0) 01/26/22 04:45 RDW 15.2 % (12.1-15.1) H 01/26/22 04:45 Plt Count 225 10^3/cmm (130-400) 01/26/22 04:45 MPV 10.2 fL (7.4-10.4) 01/26/22 04:45 Neut % (Auto) 67.0 % 01/26/22 04:45 Lymph % (Auto) 22.0 % 01/26/22 04:45 [place] % (Auto) 10.0 % 01/26/22 04:45 Eos % (Auto) 0.1 % 01/26/22 04:45 Baso % (Auto) 0.4 % 01/26/22 04:45 Neut # (Auto) 5.22 10^3/uL (1.8-7.7) 01/26/22 04:45 Lymph # (Auto) 1.7 10^3/uL (0.8-4.8) 01/26/22 04:45 [place] # (Auto) 0.8 10^3/uL (0.2-0.9) 01/26/22 04:45 Eos # (Auto) 0.0 10^3/uL (0.0-0.8) 01/26/22 04:45 Baso # (Auto) 0.0 10^3/uL (0.0-0.1) 01/26/22 04:45 Nucleated RBC % (auto) 0 % 01/26/22 04:45 Nucleated RBCs # 0.0 /100WBC 01/26/22 04:45 APTT 24.2 SECONDS (23.9-36.7) 01/25/22 03:42 D-Dimer 0.51 ug/mIFEU (0-0.59) 01/23/22 21:01 Sodium 124 mmol/L (136-145) L 01/26/22 04:45 Potassium 4.1 mmol/L (3.5-5.1) 01/26/22 04:45 Chloride 87 mmol/L (98-107) L 01/26/22 04:45 Carbon Dioxide 24 mmol/L (22-29) 01/26/22 04:45 Anion Gap 17.1 (5-19) 01/26/22 04:45 BUN 13 mg/dL (8-23) 01/26/22 04:45 Creatinine 0.9 mg/dL (0.5-0.9) 01/26/22 04:45 GFR Calculation Not Reportable 01/26/22 04:45 Glucose 97 mg/dL (65-115) 01/26/22 04:45 POC Glucose 104 mg/dL (70-110) 01/26/22 09:23 Estimat Average Glucose 126 01/23/22 21:01 Hemoglobin A1c 6.0 % (4.0-6.0) 01/23/22 21:01 Calculated Osmolality 258 mOsm/kg (285-295) L 01/26/22 04:45 Calcium 9.6 mg/dL (8.5-10.5) 01/26/22 04:45 Phosphorus 4.1 mg/dL (2.5-4.5) 01/24/22 03:54 Magnesium 1.6 mg/dL (1.7-2.3) L 01/26/22 04:45 Total Bilirubin 0.3 mg/dL (0.15-1.2) 01/24/22 03:54 AST 25 U/L (0-32) 01/24/22 03:54 ALT 17 U/L (0-33) 01/24/22 03:54 Alkaline Phosphatase 41 U/L (35-105) 01/24/22 03:54 Troponin T Baseline 97 ng/L (0-10) H 01/24/22 18:00 Troponin T 120 Minute 494.3 ng/L (0-10) H 01/24/22 20:27 Delta Troponin T 397.3 ABS# (0-10) H* 01/24/22 20:27 Troponin T Hi Sens 6Hr 1029 ng/L (0-10) H 01/24/22 23:10 Troponin T Hi Sens 6Hr Delta 932 ng/L (0-12) H* 01/24/22 23:10 NT-Pro-B Natriuret Pep 3232 pg/mL (0-125) H 01/23/22 21:01 Total Protein 6.3 g/dL (6.6-8.7) L 01/24/22 03:54 Albumin 3.4 g/dL (3.5-5.2) L 01/24/22 03:54 Globulin 2.9 g/dL (1.3-4.6) 01/24/22 03:54 Vitamin B12 219 pg/mL (232-1245) L 01/23/22 21:01 TSH 0.43 uIU/mL (0.27-4.20) 01/23/22 21:01 Prolactin 42.04 ng/mL (4.8-23.3) H 01/23/22 21:01 Random Cortisol 17.65 ug/dL (2.47-19.5) 01/25/22 03:42 Urine Color Yellow (Yellow) 01/23/22 14:50 Urine Appearance Clear (CLEAR) 01/23/22 14:50 Urine pH 7 (5-7) 01/23/22 14:50 Ur Specific [place] 1.000 (1.005-1.030) L 01/23/22 14:50 Urine Protein Neg 01/23/22 14:50 Urine Glucose (UA) 1+ (Normal) H 01/23/22 14:50 Urine Ketones Negative (Negative) 01/23/22 14:50 Urine Blood 3+ (Negative) H 01/23/22 14:50 Urine Nitrate Negative 01/23/22 14:50 Urine Bilirubin Neg (Negative) 01/23/22 14:50 Urine Urobilinogen Norm mg/dL (Negative) 01/23/22 14:50 Ur Leukocyte Esterase Negative 01/23/22 14:50 Urine RBC >100 /hpf (0-2) H 01/23/22 14:50 Urine WBC 0-4 /hpf (0-5) H 01/23/22 14:50 Ur Squamous Epith Cells 0-4 /hpf (0-5) H 01/23/22 14:50 Amorphous Sediment Not Reportable 01/23/22 14:50 Urine Bacteria Trace /hpf (NONE) 01/23/22 14:50 Vitals Last Vital Signs Temp 98.1 F 01/26/22 07:50 Pulse 112 H 01/26/22 08:56 Resp 18 01/26/22 08:56 BP 150/80 09/30/22 07:50 Pulse Ox 95 01/26/22 08:56 O2 Del Method 01/26/22 08:56 O2 Flow Rate 3 01/24/22 20:00 Discharge Plan Discharge Patient Disposition: Home Condition: Stable Prescriptions: New prednisone 10 mg tablet 10 mg PO DAILY Qty: 60 0RF Rx Instructions: 40 mg for 3 days, 30 mg for 3 days, 20 mg for 3 days and then continue 10 mg daily Adult Aspirin Regimen 81 mg tablet,delayed release (DR/EC) 81 mg PO DAILY Qty: 60 0RF Continued clopidogrel 75 mg tablet 75 mg PO DAILY losartan 25 mg tablet 25 mg PO DAILY magnesium oxide 400 mg (241.3 mg magnesium) tablet 400 mg PO BID Humira Pen 40 mg/0.8 mL pen injector kit 40 mg SUBCUT Q14D Qty: 2 3RF oxycodone-acetaminophen 10-325 mg tablet 1 tab PO Q6H PRN (Reason: Pain) Belsomra 20 mg tablet 20 mg PO BEDTIME PRN (Reason: Sleep) Savella 50 mg tablet 50 mg PO BID atorvastatin 20 mg tablet 20 mg PO DAILY metoprolol succinate 25 mg tablet extended release 24 hr 25 mg PO DAILY Qty: 90 3RF hydroxychloroquine 200 mg tablet See Rx Instructions .ROUTE .COMPLEX Qty: 135 0RF Dose Instruction: ALTERNATE TAKING 1 TABLET TODAY THEN 2 TABLETS TOMORROW. Rx Instructions: ALTERNATE TAKING 1 TABLET TODAY THEN 2 TABLETS TOMORROW. leflunomide 20 mg tablet See Rx Instructions .ROUTE .COMPLEX Qty: 90 0RF Dose Instruction: TAKE 1 TABLET BY MOUTH DAILY WITH FOOD Rx Instructions: TAKE 1 TABLET BY MOUTH DAILY WITH FOOD prednisone 5 mg tablet 5 mg PO BID Qty: 60 1RF pantoprazole 40 mg tablet,delayed release (DR/EC) 40 mg PO DAILY pregabalin 100 mg capsule 100 mg PO BID pregabalin 150 mg capsule 150 mg PO BID sulfasalazine 500 mg tablet 1,000 mg PO BID temazepam 30 mg Capsule 30 mg PO BEDTIME fluticasone propionate 50 mcg/actuation spray,suspension 2 spray INTRANASAL DAILY Januvia 50 mg tablet 50 mg PO DAILY Discontinued meloxicam 15 mg tablet 15 mg PO DAILY Hold Instructions: Doctor's Order Tresiba FlexTouch U-100 100 unit/mL (3 mL) insulin pen 75 unit SUBCUT DAILY Discharge Orders: Discharge Order (Routine); Ordered 01/26/22 Ordered By: Brad Allen Referrals: Xavier Jim [Primary Care Provider] - 7-10 days Discharge Diet: Cardiac Discharge Activity: Increase activity as tolerated Patient Instructions: Prednisone (By mouth), Opioid Safety Discharge Attestations Time Spent in Discharge Care*: less than 30 min Quality Metrics Clinical Quality Measures [ No reported AMI, CVA or VTE this stay] Coding Level of Care Code Acute g [facility] note Diagnoses HTN (hypertension) with goal to be determined I10 ST elevation (STEMI) myocardial infarction I21.3 Diabetes E11.9 Coronary artery disease I25.10
--- NOTE | 2022-01-26 10:26 | PC.SOCIAL ---
IMM update IMM updated with patient and family present at bedside. Verbalized an understanding. Copy Pg 2 provided. Initialled, dated, timed and placed in chart.
[2022-01-26 11:29] LABS: Glucose Point of Care 117 mg/dL (70-110)
--- NOTE | 2022-01-26 11:46 | PC.NURSE ---
Discharge Note Patient discharged to home via car accompanied by family. Discharge instructions reviewed with patient and/or community relations representative. Mobile pharmacy medications and/or prescriptions provided. Belongings/home medications returned.
[2022-01-27 12:08] LABS: C-Peptide 0.12 ng/mL (0.80-3.85)
[2022-01-29 11:57] LABS: Insulin ( Reference Lab Test) 150.1 uIU/mL
== END 2022-01-26 11:45 | disposition home health service (06) | DRG 250 ==
LOC: ER 15:51 → ICU 19:15 → MEDSURG 01-24 12:15 → ICU 01-24 19:34 → MEDSURG 01-25 11:02
PROVIDERS: Internal Medicine; Admitting Provider Internal Medicine; Emergency Provider Family Medicine; PCP Family Medicine; Visit Provider Internal Medicine
PROC: 02703ZZ Dilation of Coronary Artery, One Artery, Percutaneous Approach (ICD-10-PCS; principal; 2022-01-24 18:00)
PROC: 02703ZZ Dilation of Coronary Artery, One Artery, Percutaneous Approach (ICD-10-PCS; 2022-01-24 18:00)
DX: I21.02 ST elevation (STEMI) myocardial infarction involving left anterior descending coronary artery (principal); G93.41 Metabolic encephalopathy; M51.16 Intervertebral disc disorders with radiculopathy, lumbar region; M05.9 Rheumatoid arthritis with rheumatoid factor, unspecified; I10 Essential (primary) hypertension; E11.42 Type 2 diabetes mellitus with diabetic polyneuropathy; T38.3X1A Poisoning by insulin and oral hypoglycemic [antidiabetic] drugs, accidental (unintentional), initial encounter; E11.649 Type 2 diabetes mellitus with hypoglycemia without coma; I25.118 Atherosclerotic heart disease of native coronary artery with other forms of angina pectoris; Z96.652 Presence of left artificial knee joint; F41.8 Other specified anxiety disorders; Z79.52 Long term (current) use of systemic steroids; Z79.4 Long term (current) use of insulin; Z79.02 Long term (current) use of antithrombotics/antiplatelets; Z95.5 Presence of coronary angioplasty implant and graft
CPT/HCPCS: 36415; 36416; 51702; 70450; 72131; 74176; 80048; 80053; 81001; 82533; 82607; 82962; 83036; 83525; 83735; 83880; 84100; 84146; 84443; 84484; 84681; 85025; 85347; 85378; 85730; 87086; 92920; 93005; 93306; 93458; 94664; 96360; 96365; 96372; 96375; 97116; 97161; 99291; C1725; C1769; C1887; C1894; J0360; J0696; J1610; J1644; J1650; J1720; J1953; J2250; J2270; J2354; J2405; J2765; J3010; J3420; J3486; J3490; J7030; Q9967

== ENCOUNTER 2022-01-27 18:29 | Inpatient (IN) | payer MEDICARE, MEDICAID, SELFPAY ==
[2022-01-27] VITALS (7 sets, daily range): BP systolic 115–151; BP diastolic 67–96; PULSE 93–104; RESP 12–24; TEMP 36.3; O2SAT 93–99
--- NOTE | 2022-01-27 18:41 | ECG_ITS ---
[facility] Test Date: 2022-01-27 Pat Name: Bisi Anderson Department: Room: Gender: Female Envelope Stuffer: : 1950 Requested By: Guy Campos Order Number: [id number] Lee Ann MD: Crow Maldonado M.D. Measurements Intervals [place] Rate: 103 P: 51 WV: 146 QRS: -13 QRSD: 77 T: 106 QT: 353 QTc: 463 Interpretive Statements SINUS TACHYCARDIA LEFT VENTRICULAR HYPERTROPHY AND ST-T CHANGE [VOLTAGE CRITERIA PLUS ST/T ABNORMALITY] ANTERIOR MYOCARDIAL INFARCTION , POSSIBLY ACUTE [40+ ms Q WAVE AND/OR ST/T ABNORMALITY IN V3/V4] INFERIOR MYOCARDIAL INFARCTION , POSSIBLY ACUTE [40+ ms Q WAVE AND/OR ST/T ABNORMALITY IN II/aVF] ACUTE [place] Compared to ECG 01/25/2022 00:13:13 Left ventricular hypertrophy now present Sinus rhythm no longer present Myocardial infarct finding still present Electronically Signed On 01-28-2022 22:02:46 CDT by Crow Maldonado M.D. [id number]
--- NOTE | 2022-01-27 18:46 | XRR_ITS ---
PROCEDURE INFORMATION: Exam: XR Chest Exam date and time: 01/27/2022 7:16 PM Age: 71 years old Clinical indication: Patient HX: Stemi, chest pain; Additional info: Cp TECHNIQUE: Imaging protocol: Radiologic exam of the chest. Views: 1 view. COMPARISON: CR XR chest 2V* [id number] 08/29/2018 10:43 AM FINDINGS: Lungs: Unremarkable. No consolidation. Pleural spaces: Unremarkable. No pleural effusion. No pneumothorax. Heart/Mediastinum: Unremarkable. No cardiomegaly. Bones/joints: Unremarkable. XR/XR chest 1V portable [id number] IMPRESSION: No acute findings.
--- NOTE | 2022-01-27 18:51 | ECG_ITS ---
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 Measurements Intervals [place] Rate: 104 P: 44 FL: 153 QRS: -1 QRSD: 82 T: 108 QT: 357 QTc: 470 Interpretive Statements SINUS TACHYCARDIA LEFT VENTRICULAR HYPERTROPHY AND ST-T CHANGE [VOLTAGE CRITERIA PLUS ST/T ABNORMALITY] ANTERIOR MYOCARDIAL INFARCTION , POSSIBLY ACUTE [40+ ms Q WAVE AND/OR ST/T ABNORMALITY IN V3/V4] INFERIOR MYOCARDIAL INFARCTION , POSSIBLY ACUTE [40+ ms Q WAVE AND/OR ST/T ABNORMALITY IN II/aVF] ACUTE [place] Compared to ECG 01/27/2022 18:41:36 No significant changes Electronically Signed On 01-28-2022 22:02:28 CDT by Crow Maldonado M.D. [id number] f
--- NOTE | 2022-01-27 19:00 | ED_ITS ---
HPI - General Adult General: Chief complaint: General Medical Stated complaint: High Sugar then Low Sugar Time Seen by Provider: 01/27/22 18:49 Source: patient and family History of Present Illness: 71-year-old female with a history of diabetes and coronary disease. She had a recent intervention, and angioplasty without stent to the distal LAD following an episode of chest pain in the hospital here. This was around 3 days ago. She was discharged on 01/25. She represents today. She says that she is not feeling well. She is hot, then cold. She is having trouble with her blood sugar and that it keeps going down on her. She had a blood sugar of 65 followed by a blood sugar of 118 at home. She was feeling nauseated and tired. She says she almost passed out 1 time at home as well. Her son corroborates this story. However, she denies any chest pain. She says that she has been mildly short of breath since she was in the hospital. No cough. No fever. No vomiting. Onset (ago): hour(s) Radiation: non-radiation Quality: other Pain Consistency: other Relieving factors: none Exacerbating factors: none Associated symptoms: Reports confusion (Mild), dyspnea (Mild), fevers/chills, nausea and weakness (Generalized); Deny chest pain, cough, diaphoresis, headache(s), rash, palpitations or vomiting Review of Systems Const: Reports: chills; Denies: fever(s) or diaphoresis Eyes: Denies: change in vision ENMT: Denies: throat pain Card: Denies: chest pain or palpitations Resp: Reports: dyspnea (Mild); Denies: productive cough or non-productive cough GI: Reports: nausea; Denies: abdominal pain or vomiting : Denies: difficulty voiding Skin/Breast: Denies: rash Neuro: Reports: confusion (Mild); Denies: headache(s) PFS ED PFSH: Medical History (Updated 01/27/22 @ 21:46 by Guy Cortes DO) CAD (coronary artery disease) Chest pain Coronary artery disease Diabetes Facet arthropathy, lumbar High risk medication use History of gastroesophageal reflux (GERD) HTN (hypertension) with goal to be determined Hypoglycemia Immunization counseling Insulin overdose Joint pain Lumbar disc disease with radiculopathy Muscle pain Positive ARI (antinuclear antibody) Seropositive rheumatoid arthritis of multiple sites ST elevation (STEMI) myocardial infarction Surgical History History of back surgery History of cholecystectomy History of hysterectomy History of left knee surgery Knee replacement Family History Other CAD (coronary artery disease) Cancer Diabetes Hypertension Denies family history of Rheumatoid arthritis Lupus Hyperlipidemia Lung disease Stroke Social History Smoking and tobacco status: never smoked Second hand smoke exposure: No Alcohol intake: never History of recent travel: No Physical Exam Const: GENERAL APPEARANCE: cooperative, ill appearing and frail appearing (Mildly) NUTRITIONAL APPEARANCE: obese HENMT: COMMON NORMALS: normocephalic, atraumatic and Normal external nose present HEAD & SCALP: normocephalic and atraumatic FACE & SINUS: normal facial exam NOSE: Normal external nose present Eye: COMMON NORMALS: Equal, round and reactive pupils present and EOMs intact bilaterally PUPIL: Yes Equal, round and reactive pupils present Neck/C-Spine: GENERAL: Yes trachea midline Chest: CHEST: Yes Symmetrical chest wall rise Resp: COMMON NORMALS: normal respiratory effort, No use of accessory muscles a nd clear to auscultation bilaterally AUSCULTATION: clear to auscultation bilaterally Cardio: COMMON NORMALS: regular rhythm RATE: tachycardic RHYTHM: regular rhythm GI: COMMON NORMALS: Normal to inspection, nondistended, normoactive bowel sounds present, Soft to palpation and non-tender PALPATION: Yes Soft to palpation Extremity: COMMON NORMALS: no pedal edema Neuro: ESMER COMA SCALE: document GCS findings Esmer coma scale eye opening: Spontaneous [place] coma scale verbal response: Orientated [place] coma scale motor response: Obey commands [place] coma scale total score: 15 SPEECH: speech normal Psych: COMMON NORMALS: mental status grossly normal Course Vital Signs: Vital signs: Vital Signs Temperature 97.4 F L 01/27/22 18:36 Pulse Rate 93 01/27/22 21:30 Respiratory Rate 13 01/27/22 21:30 Blood Pressure 115/67 01/27/22 21:30 Pulse Oximetry 93 01/27/22 21:30 Oxygen Delivery Me thod 01/27/22 21:30 MDM - General Adult Medical Decision Making 71-year-old female with a near syncopal episode at home, generalized weakness, and low blood sugar. She had had a balloon angioplasty around 3 days ago here. EKG in triage showed ST elevation laterally similar to prior to her balloon angioplasty. STEMI alert was called, and cardiology was consulted. He came to evaluate the patient. The patient is not having any chest pain. There is no sign of cardiogenic shock. Her blood pressure is 161/88. Heart rate 97. On cardiology evaluation, he notes that the occlusion of her LAD was very distal, and not amenable to stenting. She may or may not have developed an aneurysm of the vessel, but he spoke extensively with the patient and her family, and agreed that medical therapy was likely the best decision at this point. The patient has received heparin, Plavix, and aspirin. She will be observed. Lab Data : 01/27/22 19:15 01/27/22 19:15 Radiology Impressions Chest X-Ray 01/27/22 18:46 IMPRESSION: No acute findings. Laboratory Results WBC 7.3 10^3/uL (4.0-10.0) 01/27/22 19:15 RBC 3.97 10^6/uL (4.1-5.3) L 01/27/22 19:15 Hgb 11.1 g/dL (11.5-15.3) L 01/27/22 19:15 Hct 33.8 % (37.0-47.0) L 01/27/22 19:15 MCV 85.1 fl (81-99) 01/27/22 19:15 MCH 28.0 pg (28.0-34.0) 01/27/22 19:15 MCHC 32.8 g/dL (30.0-36.0) 01/27/22 19:15 RDW 15.2 % (12.1-15.1) H 01/27/22 19:15 Plt Count 220 10^3/cmm (130-400) 01/27/22 19:15 MPV 10.3 fL (7.4-10.4) 01/27/22 19:15 Neut % (Auto) 85.2 % 01/27/22 19:15 Lymph % (Auto) 9.7 % 01/27/22 19:15 [place] % (Auto) 4.3 % 01/27/22 19:15 Eos % (Auto) 0.0 % 01/27/22 19:15 Baso % (Auto) 0.3 % 01/27/22 19:15 Neut # (Auto) 6.21 10^3/uL (1.8-7.7) 01/27/22 19:15 Lymph # (Auto) 0.7 10^3/uL (0.8-4.8) L 01/27/22 19:15 [place] # (Auto) 0.3 10^3/uL (0.2-0.9) 01/27/22 19:15 Eos # (Auto) 0.0 10^3/uL (0.0-0.8) 01/27/22 19:15 Baso # (Auto) 0.0 10^3/uL (0.0-0.1) 01/27/22 19:15 Nucleated RBC % (auto) 0 % 01/27/22 19:15 Nucleated RBCs # 0.0 /100WBC 01/27/22 19:15 PT 12.70 SECONDS (12.1-14.9) 01/27/22 19:15 INR 0.92 (0.8-1.2) 01/27/22 19:15 APTT 26.6 SECONDS (23.9-36.7) 01/27/22 19:15 Sodium 126 mmol/L (136-145) L 01/27/22 19:15 Potassium 4.0 mmol/L (3.5-5.1) 01/27/22 19:15 Chloride 86 mmol/L (98-107) L 01/27/22 19:15 Carbon Dioxide 27 mmol/L (22-29) 01/27/22 19:15 Anion Gap 17.0 (5-19) 01/27/22 19:15 BUN 23 mg/dL (8-23) 01/27/22 19:15 Creatinine 1.0 mg/dL (0.5-0.9) H 01/27/22 19:15 GFR Calculation Not Reportable 01/27/22 18:50 Glucose 191 mg/dL (65-115) H 01/27/22 19:15 Calculated Osmolality 271 mOsm/kg (285-295) L 01/27/22 19:15 Calcium 9.4 mg/dL (8.5-10.5) 01/27/22 19:15 Total Bilirubin 0.4 mg/dL (0.15-1.2) 01/27/22 19:15 AST 53 U/L (0-32) H 01/27/22 19:15 ALT 32 U/L (0-33) 01/27/22 19:15 Alkaline Phosphatase 73 U/L (35-105) 01/27/22 19:15 Troponin T Baseline 796 ng/L (0-10) H* 01/27/22 19:15 Troponin T 120 Minute 685.0 ng/L (0-10) H 01/27/22 20:44 Delta Troponin T -111.0 ABS# (0-10) L 01/27/22 20:44 Total Protein 7.6 g/dL (6.6-8.7) 01/27/22 19:15 Albumin 4.1 g/dL (3.5-5.2) 01/27/22 19:15 Globulin 3.5 g/dL (1.3-4.6) 01/27/22 19:15 Critical Care Time Critical Care Time: Critical Care Time: Yes Total Critical Care Time: 35 Attestation: This case had a high probability of a clinically significant, sudden, or life threatening deterioration of this patient's condition which required my full and direct attention, intervention and personal management. Time is independent of any procedures performed Discharge Plan Discharge Patient Disposition: Placed in Observation Clinical Impression: EKG, abnormal, CAD (coronary artery disease), Diabetes Condition: Stable Prescriptions: No Action clopidogrel 75 mg tablet 75 mg PO DAILY losartan 25 mg tablet 25 mg PO DAILY magnesium oxide 400 mg (241.3 mg magnesium) tablet 400 mg PO BID Humira Pen 40 mg/0.8 mL pen injector kit 40 mg SUBCUT Q14D Qty: 2 3RF oxycodone-acetaminophen 10-325 mg tablet 1 tab PO Q6H PRN (Reason: Pain) Belsomra 20 mg tablet 20 mg PO BEDTIME PRN (Reason: Sleep) Savella 50 mg tablet 50 mg PO BID atorvastatin 20 mg tablet 20 mg PO DAILY metoprolol succinate 25 mg tablet extended release 24 hr 25 mg PO DAILY Qty: 90 3RF hydroxychloroquine 200 mg tablet See Rx Instructions .ROUTE .COMPLEX Qty: 135 0RF Dose Instruction: ALTERNATE TAKING 1 TABLET TODAY THEN 2 TABLETS TOMORROW. Rx Instructions: ALTERNATE TAKING 1 TABLET TODAY THEN 2 TABLETS TOMORROW. leflunomide 20 mg tablet See Rx Instructions .ROUTE .COMPLEX Qty: 90 0RF Dose Instruction: TAKE 1 TABLET BY MOUTH DAILY WITH FOOD Rx Instructions: TAKE 1 TABLET BY MOUTH DAILY WITH FOOD prednisone 5 mg tablet 5 mg PO BID Qty: 60 1RF pantoprazole 40 mg tablet,delayed release (DR/EC) 40 mg PO DAILY pregabalin 100 mg capsule 100 mg PO BID pregabalin 150 mg capsule 150 mg PO BID sulfasalazine 500 mg tablet 1,000 mg PO BID temazepam 30 mg Capsule 30 mg PO BEDTIME fluticasone propionate 50 mcg/actuation spray,suspension 2 spray INTRANASAL DAILY Januvia 50 mg tablet 50 mg PO DAILY prednisone 10 mg tablet 10 mg PO DAILY Qty: 60 0RF Rx Instructions: 40 mg for 3 days, 30 mg for 3 days, 20 mg for 3 days and then continue 10 mg daily Adult Aspirin Regimen 81 mg tablet,delayed release (DR/EC) 81 mg PO DAILY Qty: 60 0RF Referrals: Xavier Jim [Primary Care Provider] - Patient Instructions: Opioid Safety, Pain Management Coding Level of Care Code 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
[2022-01-27 19:19] LABS: Basophils % 0.3 %; Hematocrit 33.8 % (37.0-47.0); Hemoglobin 11.1 g/dL (11.5-15.3); Lymphocytes # 0.7 10^3/uL (0.8-4.8); Lymphocytes % 9.7 %; Mean Corpuscular HGB Conc 32.8 g/dL (30.0-36.0); Mean Corpuscular Volume 85.1 fl (81-99); Mean Platelet Volume 10.3 fL (7.4-10.4); Monocytes # 0.3 10^3/uL (0.2-0.9); Monocytes % 4.3 %; Neutrophils # 6.21 10^3/uL (1.8-7.7); Neutrophils % 85.2 %; Nucleated Red Blood Cells % 0 %; Platelet Count 220 10^3/cmm (130-400); Red Blood Count 3.97 10^6/uL (4.1-5.3); Red Cell Distribution Width 15.2 % (12.1-15.1); White Blood Count 7.3 10^3/uL (4.0-10.0)
[2022-01-27] MEDS: sodium chloride 0.9% 500 ML 999 ML IV (19:26)
[2022-01-27] MEDS: heparin 5,000 unit/mL INJ 1 mL 4000 UNIT IVP (19:26)
[2022-01-27] MEDS: clopidogrel 300 mg Tablet 600 MG PO (19:27)
[2022-01-27] MEDS: ondansetron 2 mg/ML SDV 2 mL 4 MG IVP ×3 (19:28→23:57)
[2022-01-27] MEDS: aspirin 325 mg Tablet PO (19:28)
[2022-01-27 19:32] LABS: INR 0.92 (0.8-1.2); Partial Thromboplastin Time 26.6 SECONDS (23.9-36.7)
--- NOTE | 2022-01-27 19:36 | P.CONIM_ITS ---
Providers/Reason For Consult Consulting Physician/Specialty*: Crow Maldonado MD/ Interventional cardiology Reason for Consult*: Possible STEMI Requesting Physician: Dr Cortes Primary Care Provider: Xavier Jim History of Present Illness History of Present Illness Bisi Anderson is a 71 year old female who was recently admitted to the hospital with hypoglycemia. While during the hospital stay she started having significant chest pain and EKG showed ST elevations in anterior leads. Emergent cardiac catheterization showed thrombotic occlusion of distal/apical LAD. Balloon angioplasty was performed that showed with bahai of slow flow. However size of the vessel and location was not amenable to stent placement. She was treated with dual antiplatelet therapy and was discharged home yesterday. Patient has been feeling weak since going home. Also mentioned that her sugar levels were either too high or low. Also has some shortness of breath. No chest pain. EKG performed in the triage showed Q waves and ST elevations in anterior and inferior leads. Cardiac Project Builder was activated. Review of Systems Const: Reports: chills; Denies: fever(s) or diaphoresis Eyes: Denies: change in vision ENMT: Denies: throat pain Card: Denies: chest pain or palpitations Resp: Reports: dyspnea (Mild); Denies: productive cough or non-productive cough GI: Reports: nausea; Denies: abdominal pain or vomiting : Denies: difficulty voiding Skin/Breast: Denies: rash Neuro: Reports: confusion (Mild); Denies: headache(s) Medications/Allergies Home Medications Medication Instructions Recorded Confirmed Last Taken Type clopidogrel 75 mg tablet 75 mg PO DAILY 09/13/20 01/23/22 Unknown History losartan 25 mg tablet 25 mg PO DAILY 09/13/20 01/23/22 Unknown History magnesium oxide 400 mg (241.3 mg 400 mg PO BID 09/13/20 01/23/22 Unknown History magnesium) tablet milnacipran 50 mg tablet (Savella) 50 mg PO BID 03/06/21 01/23/22 Unknown History oxycodone-acetaminophen 10 mg-325 1 tab PO Q6H PRN Pain 03/06/21 01/23/22 Unknown History mg tablet suvorexant 20 mg tablet (Belsomra) 20 mg PO BEDTIME PRN Sleep 03/06/21 01/23/22 Unknown History metoprolol succinate 25 mg 25 mg PO DAILY #90 tabs 05/15/21 01/23/22 Unknown Rx tablet,extended release 24 hr atorvastatin 20 mg tablet 20 mg PO DAILY 05/16/21 01/23/22 Unknown History adalimumab 40 mg/0.8 mL 40 mg (0.8 mL) SUBCUT Q14D #2 ea 06/08/21 01/23/22 Unknown Rx subcutaneous pen kit (Humira Pen) hydroxychloroquine 200 mg tablet See Rx Instructions .Route 07/05/21 01/23/22 Unknown Rx .COMPLEX #135 tabs leflunomide 20 mg tablet See Rx Instructions .Route 09/06/21 01/23/22 Unknown Rx .COMPLEX #90 tabs prednisone 5 mg tablet 5 mg PO BID #60 tabs 01/03/22 01/23/22 Unknown Rx fluticasone propionate 50 2 spray intranasal DAILY 01/23/22 01/23/22 Unknown History mcg/actuation nasal spray,suspension pantoprazole 40 mg tablet,delayed 40 mg PO DAILY 01/23/22 01/23/22 Unknown History release pregabalin 100 mg capsule 100 mg PO BID 01/23/22 01/23/22 Unknown History pregabalin 150 mg capsule 150 mg PO BID 01/23/22 01/23/22 Unknown History sitagliptin 50 mg tablet (Januvia) 50 mg PO DAILY 01/23/22 01/23/22 Unknown History sulfasalazine 500 mg tablet 1,000 mg PO BID 01/23/22 01/23/22 Unknown History temazepam 30 mg capsule 30 mg PO BEDTIME 01/23/22 01/23/22 Unknown History aspirin 81 mg tablet,delayed 81 mg PO DAILY #60 tabs 01/26/22 Unknown Rx release (Adult Aspirin Regimen) prednisone 10 mg tablet 10 mg PO DAILY #60 tabs 01/26/22 Unknown Rx Allergies Allergy/AdvReac Type Severity Reaction Status Date / Time lisinopril Allergy Intermediate ADR-Cough Verified 01/23/22 14:23 PFSH Acute PFSH: Medical History (Updated 01/27/22 @ 19:43 by Crow Maldonado M.D) CAD (coronary artery disease) Chest pain Coronary artery disease Diabetes Facet arthropathy, lumbar High risk medication use History of gastroesophageal reflux (GERD) HTN (hypertension) with goal to be determined Hypoglycemia Immunization counseling Insulin overdose Joint pain Lumbar disc disease with radiculopathy Muscle pain Positive ARI (antinuclear antibody) Seropositive rheumatoid arthritis of multiple sites ST elevation (STEMI) myocardial infarction Surgical History History of back surgery History of cholecystectomy History of hysterectomy History of left knee surgery Knee replacement Family History Other CAD (coronary artery disease) Cancer Diabetes Hypertension Denies family history of Rheumatoid arthritis Lupus Hyperlipidemia Lung disease Stroke Social History Smoking and tobacco status: never smoked Second hand smoke exposure: No Alcohol intake: never History of recent travel: No Vitals/I&O/Wt Last Vital Signs Temp 97.4 F L 01/27/22 18:36 Pulse 104 H 01/27/22 18:36 Resp 16 01/27/22 18:36 BP 138/84 01/27/22 18:36 Pulse Ox 98 01/27/22 18:36 O2 Del Method 01/27/22 18:36 Weight last 48 hrs Weight 188 lb Physical Exam Narrative: GENERAL: Patient is alert. HEENT: No cyanosis. No icterus. No pallor. [] HEART: S1 and S2, there is grade 3/6 systolic murmur LUNGS: Clear to auscultate bilaterally. [] ABDOMEN: Soft CENTRAL NERVOUS SYSTEM: Grossly nonfocal. [] EXTREMITIES: Lower extremities with 1+ edema bilaterally. Pulses palpable in the lower extremities, both dorsalis pedis and posterior tibial. [] Data : 01/27/22 19:15 01/27/22 19:15 A&P Assessment and plan (1) CAD (coronary artery disease): Qualifiers: Coronary Disease-Associated Artery/Lesion type: [place] artery [place] vs. transplanted heart: [place] heart Associated angina: with stable angina Qualified Code(s): I25.118 - Atherosclerotic heart disease of [place] coronary artery with other forms of angina pectoris (2) Diabetes: (3) EKG, abnormal: Plan Patient was recently discharged from the hospital after management for hypoglyc emia and distal to apical LAD balloon angioplasty when she developed ST elevations while in the hospital. Vessel size and location was not amenable to stent placement. She has come back with atypical features of feeling tired, presyncope, difficulty with blood glucose management. EKG shows ST elevation in anterior and inferior leads. She is chest pain-free. Differentials are reocclusion of distal/apical LAD versus ventricular aneurysm causing ST elevations. I had a detailed discussion with patient and her son regarding management options including repeat emergent cardiac catheterization versus medical therapy. Risks and benefits of both options discussed in detail. They show understanding. They want to proceed with medical therapy at this time. She is hemodynamically stable. Continue aspirin and Plavix. Heparin administered. If troponins are significantly elevated, will benefit from anticoagulation for 48 hours. Trend troponins A limited echocardiogram can be repeated. 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 Her initial blood glucose level was reported to be 65 at home before coming to the hospital. Management per medicine team. Thank you for involving us with care of this patient. We will continue to follow. Please call with questions. Consult Attestations Medical Necessity Statement: Care expected to cross 2 midnights. Coding Level of Care Code Acute Oil Rag Washer for Kimberley Farooq Diagnoses CAD (coronary artery disease) I25.118 Coronary Disease-Associated Artery/Lesion type: [place] artery [place] vs. transplanted heart: [place] heart Associated angina: with stable angina Diabetes E11.9 EKG, abnormal R94.31
[2022-01-27 19:40] LABS: Alanine Aminotransferase 32 U/L (0-33); Albumin Level 4.1 g/dL (3.5-5.2); Alkaline Phosphatase 73 U/L (35-105); Aspartate Amino Transferase 53 U/L (0-32); Blood Urea Nitrogen 23 mg/dL (8-23); Calcium 9.4 mg/dL (8.5-10.5); Carbon Dioxide 27 mmol/L (22-29); Chloride 86 mmol/L (98-107); Globulin 3.5 g/dL (1.3-4.6); Glucose 191 mg/dL (65-115); Osmolality Calculated 271 mOsm/kg (285-295); Sodium 126 mmol/L (136-145); Total Bilirubin 0.4 mg/dL (0.15-1.2); Total Protein 7.6 g/dL (6.6-8.7)
[2022-01-27] MEDS: morphine 4 mg/mL SDV 1 mL IVP (19:47)
[2022-01-27 19:52] LABS: Troponin(5th) Baseline 796 ng/L (0-10)
--- NOTE | 2022-01-27 20:39 | ECG_ITS ---
[facility] Test Date: 2022-01-27 Pat Name: Bisi Anderson Department: Room: Gender: Female Mule Packer: : 1950 Requested By: Manny Ayers Order Number: [id number] Lee Ann MD: Crow Maldonado M.D. Measurements Intervals [place] Rate: 97 P: 59 UT: 152 QRS: 13 QRSD: 77 T: 95 QT: 381 QTc: 486 Interpretive Statements SINUS RHYTHM ANTERIOR MYOCARDIAL INFARCTION , POSSIBLY ACUTE [40+ ms Q WAVE AND/OR ST/T ABNORMALITY IN V3/V4] INFERIOR MYOCARDIAL INFARCTION , POSSIBLY ACUTE [40+ ms Q WAVE AND/OR ST/T ABNORMALITY IN II/aVF] ACUTE [place] Compared to ECG 01/25/2022 00:13:13 No significant changes Electronically Signed On 01-28-2022 22:06:13 CDT by Crow Maldonado M.D. [id number]
--- NOTE | 2022-01-27 20:46 | PM.HP ---
Providers/Chief Complaint Primary Care Provider: Xavier Jim Chief Complaint: High Sugar then Low Sugar History of Present Illness Bisi Anderson is a 71 year old female with past medical history of hypertension diabetes dementia, coronary artery disease status post ptca, recent history of ST elevated ND, came in with chief complaint of generalized weakness, overall not feeling well, erratic finger stick glucose, and an episode of syncope at home witnessed by his son, EMS was called, EKG done at that time showed ST elevation in lead II,III, aVF, V3-V6 , Currently EKG is similar to one seen during her recent STEMI , subsequent EKG done post STEMI had shown resolution of ST elevation, and appearance of Q waves. STEMI was called, case was discussed by the process maintenance technician with the family, plan was either to take her to Application Architect Manager or continue with medical management, for now it was decided to continue with medical management. When I examined the patient, she was complaining of mild chest tightness, 3 out of 10 in severity, nonradiating, denied any shortness of breath, palpitation, nausea vomiting, she did complain of some mild headache, denied any cough, fever. Pertinent imaging studies done in the ER: X-ray chest: No acute findings. Pertinent labs: WBC 7.3, H&H 11 and 33, PLT : 220 , serum sodium 126 , serum potassium 4 , BUN and serum creatinine:23/1 Troponin trend: 796-685 Review of Systems General: Reports: 10 or more systems reviewed and unremarkable except in HPI and below Const: Denies: fever(s), chills, body aches, change in appetite or diaphoresis Card: Denies: palpitations, edema, swelling of feet/ankles, dyspnea on exertion, orthopnea or leg pain with exertion Resp: Denies: dyspnea, productive cough, wheezing or pain on inspiration GI: Denies: abdominal pain, nausea, vomiting, diarrhea or constipation : Denies: flank pain Musc: Denies: back pain, extremity pain or extremity swelling Neuro: Denies: headache(s), difficulty walking or confusion Medications/Allergies Home Medications Medication Instructions Recorded Confirmed Last Taken Type clopidogrel 75 mg tablet 75 mg PO DAILY 09/13/20 01/27/22 01/23/22 History losartan 25 mg tablet 100 mg PO DAILY 09/13/20 01/27/22 01/23/22 History magnesium oxide 400 mg (241.3 mg 400 mg PO BID 09/13/20 01/27/22 01/23/22 History magnesium) tablet milnacipran 50 mg tablet (Savella) 50 mg PO BID 03/06/21 01/27/22 Unknown History oxycodone-acetaminophen 10 mg-325 1 tab PO Q6H PRN Pain 03/06/21 01/27/22 01/27/22 History mg tablet suvorexant 20 mg tablet (Belsomra) 20 mg PO BEDTIME PRN Sleep 03/06/21 01/27/22 Unknown History metoprolol succinate 25 mg 25 mg PO DAILY #90 tabs 05/15/21 01/27/22 01/23/22 Rx tablet,extended release 24 hr atorvastatin 20 mg tablet 20 mg PO DAILY 05/16/21 01/27/22 01/23/22 History adalimumab 40 mg/0.8 mL 40 mg (0.8 mL) SUBCUT Q14D #2 ea 06/08/21 01/27/22 Unknown Rx subcutaneous pen kit (Humira Pen) hydroxychloroquine 200 mg tablet See Rx Instructions .Route 07/05/21 01/27/22 Unknown Rx .COMPLEX #135 tabs leflunomide 20 mg tablet See Rx Instructions .Route 09/06/21 01/27/22 01/23/22 Rx .COMPLEX #90 tabs prednisone 5 mg tablet 5 mg PO BID #60 tabs 01/03/22 01/27/22 01/23/22 Rx fluticasone propionate 50 2 spray intranasal DAILY 01/23/22 01/27/22 Unknown History mcg/actuation nasal spray,suspension pantoprazole 40 mg tablet,delayed 40 mg PO DAILY 01/23/22 01/27/22 01/23/22 History release pregabalin 100 mg capsule 100 mg PO BID 01/23/22 01/27/22 01/23/22 History sitagliptin 50 mg tablet (Januvia) 50 mg PO DAILY 01/23/22 01/27/22 01/23/22 History temazepam 30 mg capsule 30 mg PO BEDTIME 01/23/22 01/27/22 Unknown History aspirin 81 mg tablet,delayed 81 mg PO DAILY #60 tabs 01/26/22 01/27/22 01/27/22 Rx release (Adult Aspirin Regimen) prednisone 10 mg tablet 10 mg PO DAILY #60 tabs 01/26/22 01/27/22 Unknown Rx levothyroxine 1 tab PO DAILY 01/27/22 01/27/22 01/23/22 History milnacipran 50 mg tablet (Savella) 50 mg PO 2XD 01/27/22 01/27/22 01/23/22 History Allergies Allergy/AdvReac Type Severity Reaction Status Date / Time lisinopril Allergy Intermediate ADR-Cough Verified 01/27/22 23:18 PFSH Acute PFSH: Medical History (Updated 01/27/22 @ 21:46 by Guy Cortes DO) CAD (coronary artery disease) Chest pain Coronary artery disease Diabetes Facet arthropathy, lumbar High risk medication use History of gastroesophageal reflux (GERD) HTN (hypertension) with goal to be determined Hypoglycemia Immunization counseling Insulin overdose Joint pain Lumbar disc disease with radiculopathy Muscle pain Positive ARI (antinuclear antibody) Seropositive rheumatoid arthritis of multiple sites ST elevation (STEMI) myocardial infarction Surgical History History of back surgery History of cholecystectomy History of hysterectomy History of left knee surgery Knee replacement Family History Other CAD (coronary artery disease) Cancer Diabetes Hypertension Denies family history of Rheumatoid arthritis Lupus Hyperlipidemia Lung disease Stroke Social History Smoking and tobacco status: never smoked Second hand smoke exposure: No Alcohol intake: never History of recent travel: No Vitals/I&O/Wt Last Vital Signs Temp 97.4 F L 01/27/22 18:36 Pulse 104 H 01/27/22 18:36 Resp 16 01/27/22 18:36 BP 138/84 01/27/22 18:36 Pulse Ox 98 01/27/22 18:36 O2 Del Method 01/27/22 18:36 Weight last 48 hrs Weight 85.275 kg Physical Exam Const: COMMON NORMALS: patient oriented x3 Resp: COMMON NORMALS: clear to auscultation bilaterally AUSCULTATION: clear to auscultation bilaterally Cardio: COMMON NORMALS: regular rate, regular rhythm, S1 normal heart sound present, S2 normal heart sound present and Peripheral pulses 2+ throughout RATE: regular rate RHYTHM: regular rhythm HEART SOUNDS: S1 normal heart sound present and S2 normal heart sound present PERIPHERAL PULSES: Peripheral pulses 2+ throughout OTHER: Pansystolic murmur in mitral area,ESM in aortic area GI: COMMON NORMALS: Normal to inspection, nondistended, normoactive bowel sounds present, Soft to palpation, non-tender, No hepatosplenomegaly present and no masses AUSCULTATION: Yes normoactive bowel sounds PALPATION: Yes Soft to palpation and Yes No hepatosplenomegaly present RECTAL EXAM: deferred Extremity: COMMON NORMALS: no clubbing, cyanosis or edema and no pedal edema Neuro: COMMON NORMALS: patient oriented x3 Data : 01/27/22 19:15 01/27/22 19:15 A&P Assessment and plan (1) Diabetes: (2) CAD (coronary artery disease): Qualifiers: Associated angina: with stable angina Coronary Disease-Associated Artery/Lesion type: [place] artery [place] vs. transplanted heart: [place] heart Qualified Code(s): I25.118 - Atherosclerotic heart disease of [place] coronary artery with other forms of angina pectoris (3) Syncope: (4) EKG, abnormal: (5) Hyponatremia: Plan 71 year old female with past medical history of hypertension diabetes dementia, coronary artery disease status post ptca, recent history of ST elevated ND, came in with chief complaint of generalized weakness, overall not feeling well, erratic finger stick glucose, and an episode of syncope at home witnessed by his son. Assessment: Abnormal EKG with ST segment elevation: Possibly secondary to ventricular aneurysm/reocclusion History of coronary artery disease s/p PTCA distal LAD History of recent STEMI Hypertension Diabetes History of recent refractory hypoglycemia, possibly secondary to accidental insulin overdose Euvolemic hyponatremia Syncope Erratic fingerstick glucose Plan: Continue aspirin Plavix statin beta-sandra, Nitropaste, Imdur Serial EKG monitoring Monitor fingerstick glucose every hour to 2-hour D50 as needed to maintain fingerstick glucose greater than 100 Regular diet Possible repeat limited 2D echo Monitor BMP CODE STATUS: Full Code DVT prophylaxis: On Lovenox Attestations Medical Necessity Statement*: Patient is still in hospital for management of syncope, chest pain. Anticipated length of stay greater than 2 midnight Time Spent in Patient Care: Greater than 35 minutes (>than 50% of time spent in counselling and/or direct pt care on unit). Coding Level of Care Code Acute Botany Professor for Chg Fwd Exam Detailed Diagnoses Diabetes E11.9 CAD (coronary artery disease) I25.118 Associated angina: with stable angina Coronary Disease-Associated Artery/Lesion type: [place] artery [place] vs. transplanted heart: [place] heart Syncope R55 EKG, abnormal R94.31 Hyponatremia E87.1
[2022-01-27] MEDS: nitroglycerin 1 gm/inch oint Pkt 0.5 INCH TOPICAL (21:47)
[2022-01-27] MEDS: midazolam 1 mg/mL INJ 2 mL IVP (22:12)
[2022-01-27] MEDS: enoxaparin 40 mg/0.4 mL Syringe SUBCUT (23:58)
[2022-01-28] VITALS (25 sets, daily range): BP systolic 99–146; BP diastolic 55–80; PULSE 71–94; RESP 8–23; TEMP 36.6–36.8; O2SAT 95–100
[2022-01-28] MEDS: temazepam 15 mg Capsule PO ×2 (00:30→22:00)
[2022-01-28] MEDS: acetaminophen 325 mg Tablet 650 MG PO ×3 (00:30→08:03)
[2022-01-28 00:40] LABS: Glucose Point of Care 174 mg/dL (70-110)
[2022-01-28 00:40] LABS: Glucose Point of Care 167 mg/dL (70-110)
--- NOTE | 2022-01-28 00:46 | ECG_ITS ---
[facility] Test Date: 2022-01-28 Pat Name: Bisi Anderson Department: Room: [facility] Gender: Female Collection Systems Consultant: : 1950 Requested By: Manny Ayers Order Number: [id number] Lee Ann MD: Crow Maldonado M.D. Measurements Intervals [place] Rate: 94 P: 68 [place]: 144 QRS: 7 QRSD: 87 T: 95 QT: 384 QTc: 480 Interpretive Statements SINUS RHYTHM WITH SINUS ARRHYTHMIA ANTERIOR MYOCARDIAL INFARCTION , POSSIBLY ACUTE [40+ ms Q WAVE AND/OR ST/T ABNORMALITY IN V3/V4] INFERIOR MYOCARDIAL INFARCTION , POSSIBLY ACUTE [40+ ms Q WAVE AND/OR ST/T ABNORMALITY IN II/aVF] ACUTE [place] Compared to ECG 01/27/2022 20:39:12 No significant changes Electronically Signed On 01-28-2022 22:05:50 CDT by Crow Maldonado M.D. [id number]
[2022-01-28 01:26] LABS: Basophils % 0.2 %; Hematocrit 31.2 % (37.0-47.0); Hemoglobin 9.8 g/dL (11.5-15.3); Lymphocytes % 16.9 %; Mean Corpuscular HGB Conc 31.4 g/dL (30.0-36.0); Mean Corpuscular Hemoglobin 28.2 pg (28.0-34.0); Mean Corpuscular Volume 89.7 fl (81-99); Mean Platelet Volume 10.3 fL (7.4-10.4); Monocytes # 0.4 10^3/uL (0.2-0.9); Monocytes % 6.9 %; Neutrophils # 4.53 10^3/uL (1.8-7.7); Neutrophils % 75.7 %; Nucleated Red Blood Cells % 0 %; Platelet Count 197 10^3/cmm (130-400); Red Blood Count 3.48 10^6/uL (4.1-5.3); Red Cell Distribution Width 15.4 % (12.1-15.1)
[2022-01-28 01:47] LABS: Blood Urea Nitrogen 21 mg/dL (8-23); Calcium 8.4 mg/dL (8.5-10.5); Carbon Dioxide 25 mmol/L (22-29); Chloride 94 mmol/L (98-107); Glucose 143 mg/dL (65-115); Osmolality Calculated 277 mOsm/kg (285-295); Sodium 131 mmol/L (136-145)
[2022-01-28 01:49] LABS: Troponin 5 6HR Delta -46.7 ng/L (0-12)
[2022-01-28 01:50] LABS: Troponin 5 6HR 749.3 ng/L (0-10)
[2022-01-28 02:04] LABS: Glucose Point of Care 145 mg/dL (70-110)
[2022-01-28 03:24] LABS: Glucose Point of Care 157 mg/dL (70-110)
[2022-01-28] MEDS: nitroglycerin 1 gm/inch oint Pkt 0.5 INCH TOPICAL ×4 (03:32→21:56)
[2022-01-28 04:05] LABS: Glucose Point of Care 156 mg/dL (70-110)
[2022-01-28] MEDS: ondansetron 2 mg/ML SDV 2 mL 4 MG IVP ×2 (04:14→09:31)
[2022-01-28 05:15] LABS: Glucose Point of Care 163 mg/dL (70-110)
[2022-01-28 06:06] LABS: Glucose Point of Care 132 mg/dL (70-110)
[2022-01-28] MEDS: pantoprazole DR 40 mg Tablet PO (08:02)
[2022-01-28] MEDS: metoprolol succinate ER (24 HR) 25 mg Tablet PO (08:02)
[2022-01-28] MEDS: predniSONE 5 mg Tablet PO ×2 (08:03→17:16)
[2022-01-28] MEDS: clopidogrel 75 mg Tablet PO (08:03)
[2022-01-28] MEDS: atorvastatin 40 mg Tablet PO (08:05)
[2022-01-28] MEDS: aspirin 81 mg EC Tablet PO (08:05)
[2022-01-28 08:12] LABS: Glucose Point of Care 78 mg/dL (70-110)
[2022-01-28] MEDS: HYDROcodone-acetaminophen 5-325 mg Tablet 1 TAB PO ×3 (10:30→20:10)
[2022-01-28 10:49] LABS: Glucose Point of Care 100 mg/dL (70-110)
--- NOTE | 2022-01-28 11:18 | P.PN_ITS ---
Subjective Subjective: Patient is stable. Denies chest pain. Troponin trended down Vitals/I&O/Wt Last Vital Signs Temp 97.8 F 01/28/22 09:00 Pulse 77 01/28/22 10:00 Resp 12 01/28/22 10:00 BP 115/70 01/28/22 10:00 Pulse Ox 95 01/28/22 10:00 O2 Del Method 01/28/22 09:00 01/27/22 01/28/22 01/28/22 22:59 06:59 14:59 Intake Total 1000 / 1000 200 / 200 Output Total 1300 / 1300 Balance 1000 / 1000 -1300 / -300 200 / 200 Weight last 48 hrs Weight 167 lb 8 oz Weight 188 lb Physical Exam Narrative: GENERAL: Patient is alert. HEENT: No cyanosis. No icterus. No pallor. [] HEART: S1 and S2, there is grade 3/6 systolic murmur LUNGS: Clear to auscultate bilaterally. [] ABDOMEN: Soft CENTRAL NERVOUS SYSTEM: Grossly nonfocal. [] EXTREMITIES: Lower extremities with 1+ edema bilaterally. Pulses palpable in the lower extremities, both dorsalis pedis and posterior tibial. [] Data : 01/29/22 04:43 01/29/22 04:43 A&P Assessment and plan (1) CAD (coronary artery disease): (2) Diabetes: (3) EKG, abnormal: Plan Patient was recently discharged from the hospital after management for hypoglycemia and distal to apical LAD balloon angioplasty when she developed ST elevations while in the hospital. Vessel size and location was not amenable to stent placement. She has come back with atypical features of feeling tired, presyncope, difficulty with blood glucose management. EKG shows ST elevation in anterior and inferior leads. She is chest pain-free. Differentials are reocclusion of distal/apical LAD versus ventricular aneurysm causing ST elevations. I had a detailed discussion with patient and her son regarding management options including repeat emergent cardiac catheterization versus medical therapy. Risks and benefits of both options discussed in detail. They show understanding. They want to proceed with medical therapy at this time. She is hemodynamically stable. Troponins have trended aiyana. Continue aspirin and Plavix. A limited echocardiogram can be repeated. 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 Thank you for involving us with care of this patient. We will continue to fo llow. Please call with questions. Attestations 2 Medical Necessity Statement*: Care expected to cross 2 midnights. Coding Level of Care Code Acute Phlebotomist Associate for Kimberley Farooq Diagnoses CAD (coronary artery disease) I25.10 Diabetes E11.9 EKG, abnormal R94.31
--- NOTE | 2022-01-28 11:34 | PM.PN ---
Subjective Subjective: She is overall doing better. Denies chest pain. Not having a good appetite. Discussing with her has never been formally assessed for gastroparesis. Does state that has symptoms with prolonged gastric transit. Later on having some generalized body ache. Request for cream and sugar brought for her coffee. Discussed with her to avoid sugar in her coffee if possible as it may cause sugar spikes which may be difficult to deal with with otherwise having sugar lows. Vitals/I&O/Wt Last Vital Signs Temp 97.8 F 01/28/22 09:00 Pulse 77 01/28/22 10:00 Resp 12 01/28/22 10:00 BP 115/70 01/28/22 10:00 Pulse Ox 95 01/28/22 10:00 O2 Del Method 01/28/22 09:00 01/27/22 01/28/22 01/28/22 22:59 06:59 14:59 Intake Total 1000 / 1000 200 / 200 Output Total 1300 / 1300 Balance 1000 / 1000 -1300 / -300 200 / 200 Weight last 48 hrs Weight 75.977 kg Weight 85.275 kg Physical Exam Const: COMMON NORMALS: patient oriented x3 and alert GENERAL APPEARANCE: cooperative NUTRITIONAL APPEARANCE: overweight ORIENTATION/CONSCIOUSNESS: Yes awake OTHER: Appears tired. HENMT: COMMON NORMALS: oropharynx normal Neck/C-Spine: COMMON NORMALS: no JVD Resp: COMMON NORMALS: normal respiratory effort and clear to auscultation bilaterally AUSCULTATION: clear to auscultation bilaterally Cardio: COMMON NORMALS: no JVD, regular rhythm, S1 normal heart sound present, S2 normal heart sound present and No murmurs present (Cardio) RHYTHM: regular rhythm HEART SOUNDS: S1 normal heart sound present and S2 normal heart sound present GI: COMMON NORMALS: Normal to inspection, nondistended, normoactive bowel sounds present, Soft to palpation and non-tender PALPATION: Yes Soft to palpation Extremity: COMMON NORMALS: no joint enlargement and no pedal edema Neuro: COMMON NORMALS: patient oriented x3 and moves all extremities SENSORIUM/ORIENTATION: Yes alert Skin: COMMON NORMALS: no rashes or lesions noted GENERAL SKIN EXAM: no rashes or lesions noted Data : 01/28/22 01:20 01/28/22 01:20 A&P Assessment and plan (1) CAD (coronary artery disease): Possible STEMI with possible distal LAD reocclusion, continues on medical therapy. Change Lovenox to therapeutic dose. Continue aspirin, Plavix, beta-sandra, statin. Nitroglycerin as needed. Pain medication as needed. Some generalized body ache, possibly with cardiac ischemia, he is also on statin, check CK. (2) Diabetes: Does not appear that she maintains diabetic diet very well, request for cream and sugar to be brought for her coffee, discussing with her concerns carbohydrate diet, she states she forgot. Discussed with her to avoid sugar and coffee etc. so as to avoid blood sugar spikes as these may be difficult to treat with otherwise having lows. Unfortunately as blood glucose was 65 reported at home despite holding Tresiba, not likely to be at this time able to safely start long-acting insulin. Discussed with her may need short acting insulin for blood glucose spikes. Definitely needs to do better in terms of maintaining consistent carbohydrate diet. Change diet to consistent carb. (3) Syncope: (4) EKG, abnormal: (5) Hyponatremia: Attestations Medical Necessity Statement*: Continue admission for assessment management of CAD, medical management after AMI Coding Level of Care Code Acute Commercial Lines Sales Executive for [facility] Fwd Exam Comprehensive Diagnoses CAD (coronary artery disease) I25.10 Diabetes E11.9 Syncope R55 EKG, abnormal R94.31 Hyponatremia E87.1
[2022-01-28 12:01] LABS: Creatine Phosphokinase 258 U/L (26-192)
[2022-01-28] MEDS: enoxaparin 80 mg/0.8 mL Syringe 75 MG SUBCUT ×2 (12:51→23:32)
[2022-01-28 13:07] LABS: Glucose Point of Care 61 mg/dL (70-110)
--- NOTE | 2022-01-28 14:08 | PC.NURSE ---
TRasnferred patient to Med surge. Report given to nurse kemp. Patient sent with cellphone, diabetes education coordinator, purse, and bag of clothes.
--- NOTE | 2022-01-28 14:16 | PC.NURSE ---
Transfer Note Patient transferred to [address] [place] [address] from ICU via wheel chair. Handoff received from Gabriele RAPP. Patient oriented to environment and equipment. Covering service notified. Orders reviewed and will continue to monitor. Family and/or medical sales representative notified.
--- NOTE | 2022-01-28 15:15 | PC.NURSE ---
patient reports sister darion colunga ok to have information about patient upon call
[2022-01-28 16:18] LABS: Glucose Point of Care 194 mg/dL (70-110)
[2022-01-28 17:20] LABS: Glucose Point of Care 215 mg/dL (70-110)
[2022-01-28 21:02] LABS: Glucose Point of Care 139 mg/dL (70-110)
[2022-01-28 23:43] LABS: Glucose Point of Care 105 mg/dL (70-110)
[2022-01-29] VITALS (52 sets, daily range): BP systolic 107–165; BP diastolic 59–91; PULSE 69–106; RESP 0–27; TEMP 36.3–36.8; O2SAT 94–100
[2022-01-29 02:16] LABS: Glucose Point of Care 62 mg/dL (70-110)
[2022-01-29] MEDS: HYDROcodone-acetaminophen 5-325 mg Tablet 1 TAB PO ×4 (02:18→16:21)
[2022-01-29 02:40] LABS: Glucose Point of Care 121 mg/dL (70-110)
[2022-01-29] MEDS: nitroglycerin 1 gm/inch oint Pkt 0.5 INCH TOPICAL (03:44)
[2022-01-29 04:10] LABS: Glucose Point of Care 177 mg/dL (70-110)
[2022-01-29 05:11] LABS: Basophils % 0.5 %; Eosinophils % 0.7 %; Hematocrit 31.1 % (37.0-47.0); Hemoglobin 9.9 g/dL (11.5-15.3); Lymphocytes # 2.2 10^3/uL (0.8-4.8); Lymphocytes % 35.9 %; Mean Corpuscular HGB Conc 31.8 g/dL (30.0-36.0); Mean Corpuscular Hemoglobin 28.4 pg (28.0-34.0); Mean Corpuscular Volume 89.1 fl (81-99); Mean Platelet Volume 10.6 fL (7.4-10.4); Monocytes # 0.6 10^3/uL (0.2-0.9); Monocytes % 9.1 %; Neutrophils # 3.22 10^3/uL (1.8-7.7); Neutrophils % 53.5 %; Nucleated Red Blood Cells % 0 %; Platelet Count 213 10^3/cmm (130-400); Red Blood Count 3.49 10^6/uL (4.1-5.3); Red Cell Distribution Width 15.8 % (12.1-15.1)
[2022-01-29 05:35] LABS: Anion Gap 14.1 (5-19); Blood Urea Nitrogen 21 mg/dL (8-23); Calcium 9.2 mg/dL (8.5-10.5); Carbon Dioxide 27 mmol/L (22-29); Chloride 98 mmol/L (98-107); Glucose 180 mg/dL (65-115); Osmolality Calculated 288 mOsm/kg (285-295); Potassium 4.1 mmol/L (3.5-5.1); Sodium 135 mmol/L (136-145)
[2022-01-29 06:29] LABS: Glucose Point of Care 122 mg/dL (70-110)
[2022-01-29] MEDS: clopidogrel 75 mg Tablet PO (08:34)
[2022-01-29] MEDS: predniSONE 5 mg Tablet PO ×2 (08:34→17:47)
[2022-01-29] MEDS: aspirin 81 mg EC Tablet PO (08:34)
[2022-01-29] MEDS: metoprolol succinate ER (24 HR) 25 mg Tablet PO (08:34)
[2022-01-29] MEDS: atorvastatin 40 mg Tablet PO (08:34)
[2022-01-29] MEDS: pantoprazole DR 40 mg Tablet PO (08:34)
[2022-01-29] MEDS: morphine 4 mg/mL SDV 1 mL 1 MG IVP (09:42)
[2022-01-29] MEDS: isosorbide mononitrate ER 30 mg Tablet PO (10:18)
[2022-01-29 10:31] LABS: Glucose Point of Care 127 mg/dL (70-110)
[2022-01-29] MEDS: enoxaparin 80 mg/0.8 mL Syringe 75 MG SUBCUT ×2 (11:56→23:00)
[2022-01-29] MEDS: ranolazine (12HR) 500 mg Tablet PO ×2 (12:20→23:00)
--- NOTE | 2022-01-29 12:30 | PC.CHAP ---
Pastoral Care Encounter/Spiritual Assessment Type of Contact [] Declined bus boy visit [] Patient/Family/Request visit [] Outpatient visit [] Follow-up visit [] Physician referral [] Code/Alert [x] Routine visit [] Staff referral [] Actively dying [] Patient sleeping [] Family support [] [] Out of room [] Palliative care [] [] Receiving care in room [] Pre-surgical visit [] Trauma [] Long length of stay [] ICU visit [] Other: Relational/Emotional Strength [x] Patient feels connected with others/family/visitors/staff [] Distress [] Loneliness/isolation [] Abandonment Spirituality of Patient [x] Person of Cornelia [] Attends Mormonism of their Cornelia x[] Believes in Prayer [] Reads Bible or Baptist materials [] There are Spiritual issues to be addressed Final Rail Cutter Interventions [x] Prayer [x] Active listening x[] Non-anxious presence [x] Spiritual/emotional support [] Crisis/trauma care [] Spiritual counseling [] Bereavement support [] Provided bereavement packet [] Provided Bible/devotional materials [] Provided toy/stuffed animal, coloring book to patient or family member [] Provided Communion [] Anointing/Palouse [] Salvation [x Impact on Illness or Injury [] Angry [] Fearful [] Anxious [] Often cries [] Exhaustion [] Unable to work [] Unable to attend religion [] Unable to walk/stand [] Unable to read [] Unable to drive [] Unable to eat/drink [] Unable to sleep [] Unable to be with family [] Patient intubated [] Other: Summary Time spent with patient 10 min
--- NOTE | 2022-01-29 13:58 | PM.PN ---
Subjective Subjective: Patient was seen this morning, she tells me that she did not get a lot of sleep last night due to her roommate, she continues to have substernal chest pain, has topical nitroglycerin in place, no nausea, no vomiting, no diaphoresis Vitals/I&O/Wt Last Vital Signs Temp 97.9 F 01/29/22 11:02 Pulse 106 H 01/29/22 11:02 Resp 20 H 01/29/22 11:02 BP 147/79 01/29/22 11:02 Pulse Ox 99 01/29/22 11:02 O2 Del Method 01/29/22 11:02 01/28/22 01/29/22 01/29/22 22:59 06:59 14:59 Intake Total 360 / 760 650 / 1410 240 / 240 Output Total 1000 / 1600 700 / 2300 Balance -640 / -840 -50 / -890 240 / 240 Weight last 48 hrs Weight 74.752 kg Weight 75.977 kg Weight 85.275 kg Physical Exam Const: COMMON NORMALS: no acute distress and patient oriented x3 Resp: COMMON NORMALS: normal respiratory effort, No retractions, No use of accessory muscles and clear to auscultation bilaterally AUSCULTATION: clear to auscultation bilaterally Cardio: COMMON NORMALS: regular rate, regular rhythm, S1 normal heart sound present and S2 normal heart sound present RATE: regular rate RHYTHM: regular rhythm HEART SOUNDS: S1 normal heart sound present and S2 normal heart sound present GI: COMMON NORMALS: Normal to inspection, nondistended, normoactive bowel sounds present and non-tender Extremity: COMMON NORMALS: no pedal edema Neuro: COMMON NORMALS: patient oriented x3 Psych: COMMON NORMALS: mental status grossly normal Urinary Catheter Management: Curtis: Cath Placed During This Visit: no Reason for Continuing Indwelling Catheter: Acute Urinary Retention or Obstruction Data : 01/29/22 04:43 01/29/22 04:43 A&P Assessment and plan (1) CAD (coronary artery disease): Likely STEMI with possible distal LAD reocclusion, continues on medical therap continue therapeutic Lovenox. Continue aspirin, Plavix, beta-sandra, statin. Nitroglycerin as needed. Pain medication as needed. Some generalized body ache, possibly with cardiac ischemia, he is also on statin, Spoke to cardiology, optimize with Imdur, will add Ranexa Repeat echo cardiogram (2) Diabetes: -She continues to have ischemia episodes early this morning, will hold all insulin therapy monitor blood sugars Does not appear that she maintains diabetic diet very well, request for cream and sugar to be brought for her coffee, discussing with her concerns carbohydrate diet, she states she forgot. Discussed with her to avoid sugar and coffee etc. so as to avoid blood sugar spikes as these may be difficult to treat with otherwise having lows. Unfortunately as blood glucose was 65 reported at home despite holding Tresiba, not likely to be at this time able to safely start long-acting insulin. Discussed with her may need short acting insulin for blood glucose spikes. Definitely needs to do better in terms of maintaining consistent carbohydrate diet. Change diet to consistent carb. (3) Syncope: (4) EKG, abnormal: (5) Hyponatremia: Plan Plan for today, continue to monitor telemetry, optimize with Jennifer Du, cardiology consulted Attestations Medical Necessity Statement*: Patient requires hospitalization for chest pain, elevated troponins Coding Level of Care Code Acute Inside Sales Consultant for [facility] Fwd Exam Detailed Diagnoses CAD (coronary artery disease) I25.10 Diabetes E11.9 Syncope R55 EKG, abnormal R94.31 Hyponatremia E87.1
--- NOTE | 2022-01-29 14:50 | ECG_ITS ---
[facility] Test Date: 2022-01-29 Pat Name: Bisi Anderson Department: Room: 276 Gender: Female Er Manager: : 1950 Requested By: Jesus Momin Order Number: [id number] Lee Ann MD: Crow Maldonado M.D. Measurements Intervals [place] Rate: 84 P: 62 VT: 157 QRS: -3 QRSD: 79 T: 105 QT: 382 QTc: 452 Interpretive Statements SINUS RHYTHM WITH OCCASIONAL SUPRAVENTRICULAR PREMATURE COMPLEXES POSSIBLE ANTERIOR MYOCARDIAL INFARCTION , OF INDETERMINATE AGE [30 ms Q WAVE IN V3/V4, OR R < 0.2 mV IN V4] INFERIOR MYOCARDIAL INFARCTION , POSSIBLY ACUTE [40+ ms Q WAVE AND/OR ST/T ABNORMALITY IN II/aVF] ACUTE [place] Compared to ECG 01/28/2022 03:45:25 Sinus arrhythmia no longer present Myocardial infarct finding still present Electronically Signed On 01-29-2022 17:36:12 CDT by Crow Maldonado M.D. [id number]
[2022-01-29 16:03] LABS: Troponin(5th) Baseline 675 ng/L (0-10)
[2022-01-29] MEDS: ondansetron 2 mg/ML SDV 2 mL 4 MG IVP (16:18)
[2022-01-29] MEDS: HYDROmorphone 1 mg/mL INJ 1 mL IVP ×2 (16:19→20:52)
--- NOTE | 2022-01-29 16:50 | ECG_ITS ---
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 Measurements Intervals [place] Rate: 89 P: 51 AR: 146 QRS: -13 QRSD: 81 T: 102 QT: 362 QTc: 443 Interpretive Statements SINUS RHYTHM LEFT VENTRICULAR HYPERTROPHY AND ST-T CHANGE [VOLTAGE CRITERIA PLUS ST/T ABNORMALITY] ANTEROLATERAL MYOCARDIAL INFARCTION , PROBABLY RECENT [40+ ms Q WAVE IN I/aVL/V3-V6] ACUTE [place] Compared to ECG 01/29/2022 15:03:56 Left ventricular hypertrophy now present ST (T wave) deviation now present Myocardial infarct finding still present Electronically Signed On 01-29-2022 17:41:33 CDT by Crow Maldonado M.D. [email or web address].[id number]
--- NOTE | 2022-01-29 16:50 | PM.PN ---
Subjective Subjective: Patient is having mild chest discomfort today. Vitals/I&O/Wt Last Vital Signs Temp 97.9 F 01/29/22 11:02 Pulse 106 H 01/29/22 11:02 Resp 16 01/29/22 16:19 BP 147/79 01/29/22 11:02 Pulse Ox 99 01/29/22 11:02 O2 Del Method 01/29/22 11:02 01/29/22 01/29/22 01/29/22 06:59 14:59 22:59 Intake Total 650 / 1410 240 / 240 Output Total 700 / 2300 Balance -50 / -890 240 / 240 Weight last 48 hrs Weight 164 lb 12.8 oz Weight 167 lb 8 oz Weight 188 lb Physical Exam Narrative: GENERAL: Patient is alert. HEENT: No cyanosis. No icterus. No pallor. [] HEART: S1 and S2, there is grade 3/6 systolic murmur LUNGS: Clear to auscultate bilaterally. [] ABDOMEN: Soft CENTRAL NERVOUS SYSTEM: Grossly nonfocal. [] EXTREMITIES: Lower extremities with 1+ edema bilaterally. Pulses palpable in the lower extremities, both dorsalis pedis and posterior tibial. [] Urinary Catheter Management: Curtis: Cath Placed During This Visit: no Reason for Continuing Indwelling Catheter: Acute Urinary Retention or Obstruction Data : 01/30/22 02:42 01/30/22 02:42 A&P Assessment and plan (1) CAD (coronary artery disease): (2) Diabetes: (3) EKG, abnormal: Plan Patient was recently discharged from the hospital after management for hypoglycemia and distal to apical LAD balloon angioplasty when she developed ST elevations while in the hospital. Vessel size and location was not amenable to stent placement. She has come back with atypical features of feeling tired, presyncope, difficulty with blood glucose management. EKG shows ST elevation in anterior and inferior leads. Patient was chest pain-free at time of presentation. Differential for EKG changes was reocclusion of 4 distal apical LAD versus apical aneurysm. After discussion and family plan was for medical therapy Troponins are lower than her peak level on recent admission Can start on nitro drip if continues having chest pain. Continue aspirin and Plavix. Repeat limited echocardiogram Thank you for involving us with care of this patient. We will continue to follow. Please call with questions. Attestations Medical Necessity Statement*: Care expected to cross 2 midnights. Coding Level of Care Code Acute International First Officer for [employer] Fwd Diagnoses CAD (coronary artery disease) I25.10 Diabetes E11.9 EKG, abnormal R94.31
--- NOTE | 2022-01-29 16:53 | USCV_ITS ---
Bisi Anderson Age: 71 Gender: F : 1950 Exam Date: 01/29/2022 19:59 Ordering Phys: Crow Maldonado M.D ([email or web address]) Technologist: HAYDER [place] [facility] [place]: chest pain, elevated troponin. Patient states that she had a recent cardiac stent. BP: 107 / 67 HR: 82 Rhythm: Sinus Technical Quality: Adequate MEASUREMENTS (Male / Female) Normal Values 2D ECHO LV Diastolic Diameter PLAX 2.9 cm 4.2 - 5.9 / 3.9 - 5.3 cm LV Systolic Diameter PLAX 1.8 cm IVS Diastolic Thickness 2.1 cm 0.6 - 1.0 / 0.6 - 0.9 cm IVS Systolic Thickness 2.4 cm LVPW Diastolic Thickness 1.9 cm 0.6 - 1.0 / 0.6 - 0.9 cm LVPW Systolic Thickness 2.2 cm LVOT Diameter 1.8 cm LV Ejection Fraction 2D Teich 70.7 % LV Ejection Fraction MOD 2C 54.0 % LV Ejection Fraction 2C AL 56.1 % LA Diameter 3.3 cm LA Width 4.5 cm LA Height 5.5 cm RA Width 3.6 cm RA Height 4.4 cm Aorta at Sinotubular Diameter 2.8 cm IVC Diameter 1.3 cm M-MODE Aortic Annulus Diameter 2.8 cm LA Ao Ratio MM 1.3 MV E Point Septal Separation 0.2 cm DOPPLER AV Peak Velocity 229.0 cm/s LVOT Peak Velocity 208.0 cm/s AV Area Cont Eq vti 1.8 cm squared AV Area Cont Eq pk 2.2 cm squared MV Area PHT 2.4 cm squared Mitral E to A Ratio 0.6 MV E' Velocity 58.5 cm/s Mitral E to MV E' Ratio 24.0 Mitral E to LV E' Lateral Ratio 25.6 Mitral E to LV E' Septal Ratio 23.0 TR Peak Velocity 229.3 cm/s TR Peak Gradient 21.0 mmHg TV Peak E Velocity 55.0 cm/s Right Atrial Pressure 5.0 mmHg Pulmonary Artery Systolic Pressu 26.0 mmHg PV Peak Velocity 139.0 cm/s RV Acceleration Time 0.1 s RV Ejection Time 0.3 s RV AcT/ET 0.4 FINDINGS Left Ventricle Left ventricle is normal in size. LV systolic function is normal with EF 55 to 60%. No regional wall motion abnormalities are seen. Grade 1 diastolic dysfunction Right Ventricle Normal in size and function Right Atrium Normal in size Left Atrium Normal in size Mitral Valve Mild mitral annular calcification. Mild mitral regurgitation Aortic Valve Aortic valve is thickened. Mild aortic stenosis with aortic valve area of 1.85cm2 and mean gradient across aortic valve of 10.4mmHg Tricuspid Valve Mild tricuspid regurgitation. Insufficient TR jet to calculate RVSP Pulmonic Valve Not well visualized Pericardium Trace pericardial effusion Aorta Normal in size IVC CONCLUSIONS LV systolic function is normal with EF of 55-60% Grade 1 diastolic dysfunction Mild mitral annular calcification Aortic valve is thickened. Mild aortic stenosis with aortic valve area of 1.85cm2 and mean gradient across aortic valve of 10.4mmHg Mild tricuspid regurgitation Compared to prior echocardiogram from 01/23/2022, no significant changes are seen Crow Maldonado MD (Electronically Signed) Final Date: 30 January 2022 09:38 S
[2022-01-29 17:06] LABS: Glucose Point of Care 219 mg/dL (70-110)
[2022-01-29] MEDS: nitroglycerin drip 50 MG/250 ML PREMIX IV (18:02)
--- NOTE | 2022-01-29 19:59 | PC.NURSE ---
Spoe with and clarified to hold PO Imdur while on nitro drip.
[2022-01-29 20:21] LABS: Glucose Point of Care 259 mg/dL (70-110)
--- NOTE | 2022-01-29 20:50 | ECG_ITS ---
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 Measurements Intervals [place] Rate: 86 P: 61 [place]: 160 QRS: 1 QRSD: 77 T: 92 QT: 377 QTc: 451 Interpretive Statements SINUS RHYTHM ANTERIOR MYOCARDIAL INFARCTION , POSSIBLY ACUTE [40+ ms Q WAVE AND/OR ST/T ABNORMALITY IN V3/V4] ACUTE [place] Compared to ECG 01/29/2022 16:56:12 Left ventricular hypertrophy no longer present ST (T wave) deviation no longer present Myocardial infarct finding still present Electronically Signed On 01-29-2022 22:44:02 CDT by Crow Maldonado M.D. [id number]
[2022-01-29 22:06] LABS: Glucose Point of Care 251 mg/dL (70-110)
[2022-01-29] MEDS: temazepam 15 mg Capsule PO (22:57)
[2022-01-29] MEDS: acetaminophen 325 mg Tablet 650 MG PO (22:59)
[2022-01-29 23:22] LABS: Troponin 5 6HR 653.8 ng/L (0-10); Troponin 5 6HR Delta -21.2 ng/L (0-12)
[2022-01-30] VITALS (43 sets, daily range): BP systolic 113–181; BP diastolic 58–105; PULSE 68–89; RESP 4–20; TEMP 36.2–36.6; O2SAT 92–100
[2022-01-30] MEDS: HYDROmorphone 1 mg/mL INJ 1 mL IVP ×4 (00:14→20:43)
[2022-01-30 00:32] LABS: Glucose Point of Care 273 mg/dL (70-110)
[2022-01-30 03:07] LABS: Basophils % 0.6 %; Eosinophils % 0.8 %; Hematocrit 29.5 % (37.0-47.0); Hemoglobin 8.5 g/dL (11.5-15.3); Lymphocytes # 1.4 10^3/uL (0.8-4.8); Lymphocytes % 27.2 %; Mean Corpuscular HGB Conc 28.8 g/dL (30.0-36.0); Mean Corpuscular Hemoglobin 28.1 pg (28.0-34.0); Mean Corpuscular Volume 97.7 fl (81-99); Mean Platelet Volume 10.3 fL (7.4-10.4); Monocytes # 0.5 10^3/uL (0.2-0.9); Monocytes % 8.8 %; Neutrophils # 3.27 10^3/uL (1.8-7.7); Neutrophils % 62.4 %; Nucleated Red Blood Cells % 0 %; Platelet Count 183 10^3/cmm (130-400); Red Blood Count 3.02 10^6/uL (4.1-5.3); Red Cell Distribution Width 15.8 % (12.1-15.1); White Blood Count 5.2 10^3/uL (4.0-10.0)
[2022-01-30 03:32] LABS: Anion Gap 14.7 (5-19); Blood Urea Nitrogen 22 mg/dL (8-23); Calcium 8.5 mg/dL (8.5-10.5); Carbon Dioxide 25 mmol/L (22-29); Chloride 98 mmol/L (98-107); Glucose 218 mg/dL (65-115); Magnesium 2.2 mg/dL (1.7-2.3); Osmolality Calculated 286 mOsm/kg (285-295); Phosphorus 2.6 mg/dL (2.5-4.5); Potassium 4.7 mmol/L (3.5-5.1); Sodium 133 mmol/L (136-145)
[2022-01-30 04:44] LABS: Glucose Point of Care 159 mg/dL (70-110)
[2022-01-30 06:12] LABS: Glucose Point of Care 120 mg/dL (70-110)
[2022-01-30 08:49] LABS: Ferritin 197 ng/mL (15-150); Iron 38 ug/dL (37-145); Percent Saturation 14.2 % (20-50); Total Iron Binding Capacity 266 mcg/dl; Unsaturated Iron Binding 228 ug/dL (112-347)
[2022-01-30] MEDS: predniSONE 5 mg Tablet PO ×2 (09:01→18:13)
[2022-01-30] MEDS: metoprolol succinate ER (24 HR) 25 mg Tablet PO (09:01)
[2022-01-30] MEDS: clopidogrel 75 mg Tablet PO (09:02)
[2022-01-30] MEDS: atorvastatin 40 mg Tablet PO (09:02)
[2022-01-30] MEDS: pantoprazole DR 40 mg Tablet PO ×2 (09:03→20:43)
[2022-01-30] MEDS: aspirin 81 mg EC Tablet PO (09:03)
[2022-01-30] MEDS: sucralfate 1 gm Tablet PO ×2 (09:07→20:43)
--- NOTE | 2022-01-30 09:29 | PM.PN ---
Subjective Subjective: Patient's chest pain is atypical. Echo shows normal LV systolic function. Vitals/I&O/Wt Last Vital Signs Temp 97.9 F 01/30/22 08:00 Pulse 75 01/30/22 08:00 Resp 20 H 01/30/22 08:00 BP 150/85 01/30/22 08:00 Pulse Ox 98 01/30/22 08:00 O2 Del Method 01/30/22 08:00 01/29/22 01/30/22 01/30/22 22:59 06:59 14:59 Intake Total 144.3 / 384.3 360 / 360 Output Total 800 / 800 950 / 1750 Balance -655.7 / -415.7 -950 / -1365.7 360 / 360 Weight last 48 hrs Weight 164 lb 12.8 oz Physical Exam Narrative: GENERAL: Patient is alert. HEENT: No cyanosis. No icterus. No pallor. [] HEART: S1 and S2, there is grade 3/6 systolic murmur LUNGS: Clear to auscultate bilaterally. [] ABDOMEN: Soft CENTRAL NERVOUS SYSTEM: Grossly nonfocal. [] EXTREMITIES: Lower extremities with 1+ edema bilaterally. Pulses palpable in the lower extremities, both dorsalis pedis and posterior tibial. [] Urinary Catheter Management: Curtis: Cath Placed During This Visit: no Reason for Continuing Indwelling Catheter: Acute Urinary Retention or Obstruction Data : 01/31/22 02:30 01/31/22 02:30 A&P Assessment and plan (1) CAD (coronary artery disease): (2) Diabetes: (3) EKG, abnormal: Plan Chest pain is atypical. Troponins showing no significant uptrend. ECHO shows normal LV function. Likely pericarditis. Continue aspirin and Plavix. Thank you for involving us with care of this patient. We will continue to follow. Please call with questions. Attestations Medical Necessity Statement*: Care expected to cross 2 midnights. Coding Level of Care Code Acute Equipment Service Technician for g [place] Diagnoses CAD (coronary artery disease) I25.10 Diabetes E11.9 EKG, abnormal R94.31
[2022-01-30] MEDS: acetaminophen 325 mg Tablet 650 MG PO ×2 (09:30→16:23)
[2022-01-30 10:01] LABS: Glucose Point of Care 137 mg/dL (70-110)
[2022-01-30 11:31] LABS: Glucose Point of Care 107 mg/dL (70-110)
--- NOTE | 2022-01-30 12:09 | PC.NURSE ---
lead injection mold technician reported that patient's blood pressure was 177/129 and then again 193/103 with the automatic cuff. When I ascultated the blood pressure manually it was 180/90.
[2022-01-30] MEDS: enoxaparin 80 mg/0.8 mL Syringe 75 MG SUBCUT (12:21)
[2022-01-30] MEDS: ranolazine (12HR) 500 mg Tablet PO (12:21)
--- NOTE | 2022-01-30 12:36 | PC.NURSE ---
Patient reported chest pain at 1236 pm. Johanna Jerry RN advised me to turn the nitro drip up to 30mcg which I did.
[2022-01-30] MEDS: losartan 50 mg Tablet PO (12:53)
[2022-01-30 13:55] LABS: Basophils % 0.5 %; Eosinophils # 0.1 10^3/uL (0.0-0.8); Eosinophils % 0.8 %; Hematocrit 29.8 % (37.0-47.0); Hemoglobin 9.3 g/dL (11.5-15.3); Lymphocytes # 1.6 10^3/uL (0.8-4.8); Lymphocytes % 24.8 %; Mean Corpuscular HGB Conc 31.2 g/dL (30.0-36.0); Mean Corpuscular Hemoglobin 28.3 pg (28.0-34.0); Mean Corpuscular Volume 90.6 fl (81-99); Mean Platelet Volume 9.9 fL (7.4-10.4); Monocytes # 0.4 10^3/uL (0.2-0.9); Monocytes % 6.5 %; Neutrophils # 4.34 10^3/uL (1.8-7.7); Neutrophils % 66.9 %; Nucleated Red Blood Cells % 0 %; Platelet Count 200 10^3/cmm (130-400); Red Blood Count 3.29 10^6/uL (4.1-5.3); Red Cell Distribution Width 15.6 % (12.1-15.1); White Blood Count 6.5 10^3/uL (4.0-10.0)
--- NOTE | 2022-01-30 14:33 | PM.PN ---
Subjective Subjective: Patient was seen this morning, is chest pain-free, no nausea, no vomiting, no shortness of breath, on nitro drip Vitals/I&O/Wt Last Vital Signs Temp 97.4 F L 01/30/22 11:16 Pulse 77 01/30/22 11:16 Resp 18 01/30/22 11:16 BP 181/105 01/30/22 12:53 Pulse Ox 98 01/30/22 11:16 O2 Del Method 01/30/22 11:16 01/29/22 01/30/22 01/30/22 22:59 06:59 14:59 Intake Total 144.3 / 384.3 711.925 / 711.925 Output Total 800 / 800 950 / 1750 Balance -655.7 / -415.7 -950 / -1365.7 711.925 / 711.925 Weight last 48 hrs Weight 74.752 kg Physical Exam Const: COMMON NORMALS: no acute distress and patient oriented x3 Resp: COMMON NORMALS: normal respiratory effort, No retractions, No use of accessory muscles and clear to auscultation bilaterally AUSCULTATION: clear to auscultation bilaterally Cardio: COMMON NORMALS: regular rate, regular rhythm, S1 normal heart sound present and S2 normal heart sound present RATE: regular rate RHYTHM: regular rhythm HEART SOUNDS: S1 normal heart sound present and S2 normal heart sound present GI: COMMON NORMALS: Normal to inspection, nondistended, normoactive bowel sounds present, non-tender and no masses Extremity: COMMON NORMALS: no pedal edema Neuro: COMMON NORMALS: patient oriented x3 Psych: COMMON NORMALS: mental status grossly normal Urinary Catheter Management: Curtis: Cath Placed During This Visit: no Reason for Continuing Indwelling Catheter: Acute Urinary Retention or Obstruction Data : 01/30/22 13:38 01/30/22 02:42 A&P Assessment and plan (1) CAD (coronary artery disease): Likely STEMI with possible distal LAD reocclusion, continues on medical therapy, will stop therapeutic Lovenox after 48 hours, switch to DVT prophylaxis continue aspirin, Plavix, beta-sandra, statin. Nitroglycerin as needed. Pain medication as needed. Some generalized body ache, possibly with cardiac ischemia, he is also on statin, Spoke to cardiology, currently on nitro drip, will wean off, continue Ranexa Repeat echo cardiogram LV systolic function is normal with EF of 55-60% ?Grade 1 diastolic dysfunction ?Mild mitral annular calcification ?Aortic valve is thickened. Mild aortic stenosis with aortic ?valve area of 1.85cm2 and mean gradient across aortic valve of ?10.4mmHg ?Mild tricuspid regurgitation ?Compared to prior echocardiogram from 01/23/2022, no significant ?changes are seen (2) Diabetes: -Blood sugar sugars are in the low normal range, will monitor Does not appear that she maintains diabetic diet very well, request for cream and sugar to be brought for her coffee, discussing with her concerns carbohydrate diet, she states she forgot. Discussed with her to avoid sugar and coffee etc. so as to avoid blood sugar spikes as these may be difficult to treat with otherwise having lows. Unfortunately as blood glucose was 65 reported at home despite holding Tresiba, not likely to be at this time able to safely start long-acting insulin. Discussed with her may need short acting insulin for blood glucose spikes. Definitely needs to do better in terms of maintaining consistent carbohydrate diet. Change diet to consistent carb. (3) Syncope: (4) EKG, abnormal: (5) Hyponatremia: Plan Hypertension, add clonidine Has evidence of iron deficiency anemia, monitor hemoglobin, Attestations Medical Necessity Statement*: Patient requires hospital patient for current chest pain, NSTEMI, inpatient, greater than 2 midnights Coding Level of Care Code Acute Elementary Spanish Teacher for [facility] Fwd Diagnoses CAD (coronary artery disease) I25.10 Diabetes E11.9 Syncope R55 EKG, abnormal R94.31 Hyponatremia E87.1
[2022-01-30] MEDS: CLONazepam 0.5 mg Tablet 0.25 MG PO (15:15)
[2022-01-30 16:33] LABS: Glucose Point of Care 232 mg/dL (70-110)
[2022-01-30 18:09] LABS: Erythrocyte Sedimentation Rate 21 mm/hr (0-15)
[2022-01-30] MEDS: cloNIDine 0.1 mg Tablet PO (18:14)
[2022-01-30 20:49] LABS: Glucose Point of Care 192 mg/dL (70-110)
[2022-01-30] MEDS: isosorbide mononitrate ER 30 mg Tablet PO (21:40)
[2022-01-30 22:09] LABS: Glucose Point of Care 184 mg/dL (70-110)
[2022-01-30 22:31] LABS: C Reactive Protein 3.7 mg/L (0.0-4.9)
[2022-01-30 22:39] LABS: Procalcitonin 0.09 ng/mL (0-0.5)
[2022-01-31] VITALS (13 sets, daily range): BP systolic 106–138; BP diastolic 52–81; PULSE 65–87; RESP 11–20; TEMP 36.2–36.7; O2SAT 93–99
[2022-01-31] MEDS: CLONazepam 0.5 mg Tablet 0.25 MG PO (00:15)
[2022-01-31] MEDS: ranolazine (12HR) 500 mg Tablet PO ×2 (00:15→11:10)
[2022-01-31] MEDS: enoxaparin 40 mg/0.4 mL Syringe SUBCUT (00:16)
--- NOTE | 2022-01-31 00:20 | PC.NURSE ---
Earlier in the evening patient requested her sleeping pill she takes at home . I informed patient the medicine had been discontinued and I would discuss the hospitalist on duty tonight. Patient states if I dont get my sleeping pill I'll just be lying here awake all night . I discusse with Dr. Infante regarding patient' request. We also discussed patient was just started on klonipin today with first dose at 1500. Dr. Infante stated if patient unable to sleep she may have one more dose of the BID klonipin tonight and they canarrange her times for 0900/2100 tomorrow.
[2022-01-31 00:21] LABS: Glucose Point of Care 257 mg/dL (70-110)
[2022-01-31] MEDS: HYDROmorphone 1 mg/mL INJ 1 mL IVP (00:52)
[2022-01-31 02:07] LABS: Glucose Point of Care 198 mg/dL (70-110)
[2022-01-31 03:00] LABS: Basophils % 0.5 %; Eosinophils % 0.7 %; Hematocrit 27.7 % (37.0-47.0); Hemoglobin 8.8 g/dL (11.5-15.3); Lymphocytes # 1.7 10^3/uL (0.8-4.8); Mean Corpuscular HGB Conc 31.8 g/dL (30.0-36.0); Mean Corpuscular Hemoglobin 28.5 pg (28.0-34.0); Mean Corpuscular Volume 89.6 fl (81-99); Mean Platelet Volume 10.8 fL (7.4-10.4); Monocytes # 0.5 10^3/uL (0.2-0.9); Monocytes % 8.9 %; Neutrophils # 3.46 10^3/uL (1.8-7.7); Neutrophils % 60.6 %; Nucleated Red Blood Cells % 0 %; Platelet Count 209 10^3/cmm (130-400); Red Blood Count 3.09 10^6/uL (4.1-5.3); Red Cell Distribution Width 15.5 % (12.1-15.1); White Blood Count 5.7 10^3/uL (4.0-10.0)
[2022-01-31 03:24] LABS: Alanine Aminotransferase 20 U/L (0-33); Albumin Level 3.7 g/dL (3.5-5.2); Alkaline Phosphatase 72 U/L (35-105); Anion Gap 13.8 (5-19); Aspartate Amino Transferase 24 U/L (0-32); Blood Urea Nitrogen 20 mg/dL (8-23); Calcium 8.8 mg/dL (8.5-10.5); Carbon Dioxide 26 mmol/L (22-29); Chloride 98 mmol/L (98-107); Globulin 2.7 g/dL (1.3-4.6); Glucose 169 mg/dL (65-115); Magnesium 2.1 mg/dL (1.7-2.3); Osmolality Calculated 283 mOsm/kg (285-295); Phosphorus 2.1 mg/dL (2.5-4.5); Potassium 4.8 mmol/L (3.5-5.1); Sodium 133 mmol/L (136-145); Total Bilirubin 0.2 mg/dL (0.15-1.2); Total Protein 6.4 g/dL (6.6-8.7)
[2022-01-31 04:20] LABS: Glucose Point of Care 152 mg/dL (70-110)
[2022-01-31 06:18] LABS: Glucose Point of Care 125 mg/dL (70-110)
[2022-01-31] MEDS: sucralfate 1 gm Tablet PO (07:27)
[2022-01-31] MEDS: cloNIDine 0.1 mg Tablet PO (07:27)
[2022-01-31] MEDS: pantoprazole DR 40 mg Tablet PO (07:27)
--- NOTE | 2022-01-31 08:27 | PM.PN ---
Subjective Subjective: Patient is stable. No chest pain this AM Vitals/I&O/Wt Last Vital Signs Temp 97.6 F 01/31/22 07:52 Pulse 78 01/31/22 07:52 Resp 18 01/31/22 07:52 BP 138/70 01/31/22 07:52 Pulse Ox 93 01/31/22 07:52 O2 Del Method 01/31/22 07:52 01/30/22 01/31/22 01/31/22 22:59 06:59 14:59 Intake Total 651.775 / 1363.700 Output Total 1600 / 1600 Balance 651.775 / 1363.700 -1600 / -236.300 Physical Exam Narrative: GENERAL: Patient is alert. HEENT: No cyanosis. No icterus. No pallor. [] HEART: S1 and S2, there is grade 3/6 systolic murmur LUNGS: Clear to auscultate bilaterally. [] ABDOMEN: Soft CENTRAL NERVOUS SYSTEM: Grossly nonfocal. [] EXTREMITIES: Lower extremities with 1+ edema bilaterally. Pulses palpable in the lower extremities, both dorsalis pedis and posterior tibial. [] Urinary Catheter Management: Curtis: Cath Placed During This Visit: no Reason for Continuing Indwelling Catheter: Accurate Measurement of Urinary Output in Critically Ill Patients Data : 01/31/22 02:30 01/31/22 02:30 A&P Assessment and plan (1) CAD (coronary artery disease): (2) Diabetes: (3) EKG, abnormal: Plan Patient is stable. Continue current medications. LV systolic function is normal. No regional wall motion abnormalities are seen. Chest discomfort unlikely to be ischemic. Likely pericarditis. Continue aspirin Plavix Thank you for involving us with care of this patient. Please call with questions. Attestations Medical Necessity Statement*: Care expected to cross 2 midnights. 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
[2022-01-31] MEDS: aspirin 81 mg EC Tablet PO (08:50)
[2022-01-31] MEDS: losartan 50 mg Tablet PO (08:50)
[2022-01-31] MEDS: bisacodyl 5 mg Tablet 10 MG PO (08:51)
[2022-01-31] MEDS: predniSONE 5 mg Tablet PO (08:51)
[2022-01-31] MEDS: metoprolol succinate ER (24 HR) 25 mg Tablet PO (08:51)
[2022-01-31] MEDS: clopidogrel 75 mg Tablet PO (08:51)
[2022-01-31] MEDS: atorvastatin 40 mg Tablet PO (08:51)
--- NOTE | 2022-01-31 10:49 | PC.NURSE ---
redness noted under bilateral breast provider notified instructions received to order nysatin powder.
[2022-01-31] MEDS: nystatin powder 15 gm Btl 1 APPLIC TOPICAL (11:09)
[2022-01-31] MEDS: isosorbide mononitrate ER 30 mg Tablet PO (11:10)
[2022-01-31 11:32] LABS: Glucose Point of Care 157 mg/dL (70-110)
[2022-01-31] MEDS: acetaminophen 325 mg Tablet 650 MG PO (14:13)
--- NOTE | 2022-01-31 14:53 | PM.PN ---
Subjective Subjective: Patient was seen this morning, she tells her that she is chest pain-free, she is feeling a lot better, she is ready to go to the detention or home she tells me Vitals/I&O/Wt Last Vital Signs Temp 98.0 F 01/31/22 11:22 Pulse 79 01/31/22 11:22 Resp 18 01/31/22 11:22 BP 137/69 01/31/22 11:22 Pulse Ox 98 01/31/22 11:22 O2 Del Method 01/31/22 11:22 01/30/22 01/31/22 01/31/22 22:59 06:59 14:59 Intake Total 651.775 / 1363.700 960 / 960 Output Total 1600 / 1600 Balance 651.775 / 1363.700 -1600 / -236.300 960 / 960 Physical Exam Const: COMMON NORMALS: no acute distress and patient oriented x3 Resp: COMMON NORMALS: normal respiratory effort, No retractions, No use of accessory muscles and clear to auscultation bilaterally AUSCULTATION: clear to auscultation bilaterally Cardio: COMMON NORMALS: regular rate, regular rhythm, S1 normal heart sound present and S2 normal heart sound present RATE: regular rate RHYTHM: regular rhythm HEART SOUNDS: S1 normal heart sound present and S2 normal heart sound present GI: COMMON NORMALS: Normal to inspection, nondistended, normoactive bowel sounds present and non-tender Extremity: COMMON NORMALS: no pedal edema Neuro: COMMON NORMALS: patient oriented x3 Psych: COMMON NORMALS: mental status grossly normal Urinary Catheter Management: Curtis: Cath Placed During This Visit: yes, but has since been removed by the nurse Reason for Continuing Indwelling Catheter: Accurate Measurement of Urinary Output in Critically Ill Patients Date Urinary Catheter Removed: 01/31/22 Time Urinary Catheter Discontinued: : Data : 01/31/22 02:30 01/31/22 02:30 A&P Assessment and plan (1) CAD (coronary artery disease): Likely STEMI with possible distal LAD reocclusion, continues on medical therapy, Continue aspirin, statin, Plavix, Ranexa, increase Imdur to 30 every 12 hours So far is chest pain-free, but we will have to consider steroids if her chest pain returns Spoke to cardiology, currently on nitro drip, will wean off, continue Ranexa Repeat echo cardiogram LV systolic function is normal with EF of 55-60% ?Grade 1 diastolic dysfunction ?Mild mitral annular calcification ?Aortic valve is thickened. Mild aortic stenosis with aortic ?valve area of 1.85cm2 and mean gradient across aortic valve of ?10.4mmHg ?Mild tricuspid regurgitation ?Compared to prior echocardiogram from 01/23/2022, no significant ?changes are seen (2) Diabetes: -Blood sugar sugars are in the low normal range, will monitor, hold off on sliding scale Does not appear that she maintains diabetic diet very well, request for cream and sugar to be brought for her coffee, discussing with her concerns carbohydrate diet, she states she forgot. Discussed with her to avoid sugar and coffee etc. so as to avoid blood sugar spikes as these may be difficult to treat with otherwise having lows. Unfortunately as blood glucose was 65 reported at home despite holding Tresiba, not likely to be at this time able to safely start long-acting insulin. Discussed with her may need short acting insulin for blood glucose spikes. Definitely needs to do better in terms of maintaining consistent carbohydrate diet. Change diet to consistent carb. 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
--- NOTE | 2022-01-31 15:28 | P.DS_ITS ---
Discharge Providers Date of Admission: 01/30/22 14:15 Date of Discharge: January 31, 2022 Attending Provider at Admission: Juan Francisco Jorge MD Attending Provider at Discharge: Jesus Momin MD Primary Care Provider: Xavier Jim Diagnoses at Discharge Discharge Diagnosis (1) CAD (coronary artery disease): Status: Acute (2) Diabetes: Status: Acute (3) Syncope: Status: Acute (4) EKG, abnormal: Status: Acute (5) Hyponatremia: Status: Acute Reason for Visit Reason for Visit: High Sugar then Low Sugar Hospital Course Hospital Course 71 year old female with past medical history of hypertension diabetes dementia, coronary artery disease status post ptca, recent history of ST elevated DE, came in with chief complaint of generalized weakness, overall not feeling well, erratic finger stick glucose, and an episode of syncope and chest pain Patient presented to [facility] for chest pain, with NSTEMI, elevated troponins, cardiology was consulted, patient has a known distal LAD lesion not interveneable, she was medically managed with aspirin, Plavix, statin, Lovenox, Ranexa, Imdur, pain control, nitroglycerin drip. Patient was monitored over the next 72 hours, her chest pain subsided, nitroglycerin drip was discontinued, Lovenox was de-escalated. Her echocardiogram showed an EF 55 to 60% on discharge I have discharged on aspirin, Plavix, statin, low-dose Ranexa, low- dose Imdur continue her home oxycodone follow-up with cardiology in 2 to 3 weeks. It is likely that some component of her chest pain is musculoskeletal or related pericarditis. Patient was advised if she had recurrent chest pain come back to emergency room, we can consider steroids or Toradol Patient also has developed anemia during hospitalization, no bloody or black stools, no hemodynamic compromise, hemoglobin at discharge 8.8, I discharged her on Protonix, Carafate, follow-up primary care provider in 1 week for recheck hemoglobin, follow-up with general surgery in 2 months for consideration of EGD. If she were to have any blood or black stools go to emergency room. She also had evidence of hypoglycemia during her hospitalization, especially in the morning, no insulin was required, blood sugars remain reasonable, she can continue her Januvia at home, advised to take a nighttime snack to prevent hypoglycemia, GFR 48.8 Physical Exam Const: COMMON NORMALS: no acute distress and patient oriented x3 Resp: COMMON NORMALS: normal respiratory effort, No retractions, No use of accessory muscles and clear to auscultation bilaterally AUSCULTATION: clear to auscultation bilaterally Cardio: COMMON NORMALS: regular rate, regular rhythm, S1 normal heart sound present and S2 normal heart sound present RATE: regular rate RHYTHM: regular rhythm HEART SOUNDS: S1 normal heart sound present and S2 normal heart sound present GI: COMMON NORMALS: Normal to inspection, nondistended, normoactive bowel sounds present and non-tender Extremity: COMMON NORMALS: no pedal edema Neuro: COMMON NORMALS: patient oriented x3 Psych: COMMON NORMALS: mental status grossly normal Urinary Catheter Management: Curtis: Cath Placed During This Visit: yes, but has since been removed by the nurse Reason for Continuing Indwelling Catheter: Accurate Measurement of Urinary Output in Critically Ill Patients Date Urinary Catheter Removed: 01/31/22 Time Urinary Catheter Discontinued: 10:23 Discharge Data Studies Completed and Pending Completed Studies During Hospitalization Category Date Time Status XR chest 1V portable [id number] Stat Exams 01/27/22 18:46 Completed CV. echo complete* [id number] Routine Ultrasound 01/29/22 16:53 Completed Pending at discharge Category Date Time Status Complete Blood Count w/Auto AM LABS Lab 02/01/22 04:00 Ordered Complete Blood Count w/Auto AM LABS Lab 02/02/22 04:00 Ordered Comprehensive Metabolic Panel AM LABS Lab 02/01/22 04:00 Ordered Comprehensive Metabolic Panel AM LABS Lab 02/02/22 04:00 Ordered Magnesium AM LABS Lab 02/01/22 04:00 Ordered Occult Blood Stool [Immunochemical Fecal OCB] Routine Lab 01/30/22 08:17 Uncollected Phosphorus AM LABS Lab 02/01/22 04:00 Ordered Radiology Impressions Chest X-Ray 01/27/22 18:46 IMPRESSION: No acute findings. Laboratory Results WBC 5.7 10^3/uL (4.0-10.0) 01/31/22 02:30 RBC 3.09 10^6/uL (4.1-5.3) L 01/31/22 02:30 Hgb 8.8 g/dL (11.5-15.3) L 01/31/22 02:30 Hct 27.7 % (37.0-47.0) L 01/31/22 02:30 MCV 89.6 fl (81-99) 01/31/22 02:30 MCH 28.5 pg (28.0-34.0) 01/31/22 02:30 MCHC 31.8 g/dL (30.0-36.0) 01/31/22 02:30 RDW 15.5 % (12.1-15.1) H 01/31/22 02:30 Plt Count 209 10^3/cmm (130-400) 01/31/22 02:30 MPV 10.8 fL (7.4-10.4) H 01/31/22 02:30 Neut % (Auto) 60.6 % 01/31/22 02:30 Lymph % (Auto) 29.0 % 01/31/22 02:30 [place] % (Auto) 8.9 % 01/31/22 02:30 Eos % (Auto) 0.7 % 01/31/22 02:30 Baso % (Auto) 0.5 % 01/31/22 02:30 Neut # (Auto) 3.46 10^3/uL (1.8-7.7) 01/31/22 02:30 Lymph # (Auto) 1.7 10^3/uL (0.8-4.8) 01/31/22 02:30 [place] # (Auto) 0.5 10^3/uL (0.2-0.9) 01/31/22 02:30 Eos # (Auto) 0.0 10^3/uL (0.0-0.8) 01/31/22 02:30 Baso # (Auto) 0.0 10^3/uL (0.0-0.1) 01/31/22 02:30 Nucleated RBC % (auto) 0 % 01/31/22 02:30 Nucleated RBCs # 0.0 /100WBC 01/31/22 02:30 ESR 21 mm/hr (0-15) H 01/30/22 13:38 PT 12.70 SECONDS (12.1-14.9) 01/27/22 19:15 INR 0.92 (0.8-1.2) 01/27/22 19:15 APTT 26.6 SECONDS (23.9-36.7) 01/27/22 19:15 Sodium 133 mmol/L (136-145) L 01/31/22 02:30 Potassium 4.8 mmol/L (3.5-5.1) 01/31/22 02:30 Chloride 98 mmol/L (98-107) 01/31/22 02:30 Carbon Dioxide 26 mmol/L (22-29) 01/31/22 02:30 Anion Gap 13.8 (5-19) 01/31/22 02:30 BUN 20 mg/dL (8-23) 01/31/22 02:30 Creatinine 1.1 mg/dL (0.5-0.9) H 01/31/22 02:30 GFR Calculation Not Reportable 01/31/22 02:30 Glucose 169 mg/dL (65-115) H 01/31/22 02:30 POC Glucose 157 mg/dL (70-110) H 01/31/22 11:27 Calculated Osmolality 283 mOsm/kg (285-295) L 01/31/22 02:30 Calcium 8.8 mg/dL (8.5-10.5) 01/31/22 02:30 Phosphorus 2.1 mg/dL (2.5-4.5) L 01/31/22 02:30 Magnesium 2.1 mg/dL (1.7-2.3) 01/31/22 02:30 Iron 38 ug/dL (37-145) 01/30/22 02:42 TIBC 266 mcg/dl 01/30/22 02:42 % Saturation 14.2 % (20-50) L 01/30/22 02:42 Unsat Iron Binding 228 ug/dL (112-347) 01/30/22 02:42 Ferritin 197 ng/mL (15-150) H 01/30/22 02:42 Total Bilirubin 0.2 mg/dL (0.15-1.2) 01/31/22 02:30 AST 24 U/L (0-32) 01/31/22 02:30 ALT 20 U/L (0-33) 01/31/22 02:30 Alkaline Phosphatase 72 U/L (35-105) 01/31/22 02:30 Creatine Kinase 258 U/L (26-192) H 01/28/22 01:20 Troponin T Baseline 675 ng/L (0-10) H* 01/29/22 15:20 Troponin T 120 Minute 700.0 ng/L (0-10) H 01/29/22 17:30 Delta Troponin T 25.0 ABS# (0-10) H* 01/29/22 17:30 Troponin T Hi Sens 6Hr 653.8 ng/L (0-10) H 01/29/22 22:27 Troponin T Hi Sens 6Hr Delta -21.2 ng/L (0-12) L 01/29/22 22:27 C-Reactive Protein 3.7 mg/L (0.0-4.9) 01/30/22 13:38 Total Protein 6.4 g/dL (6.6-8.7) L 01/31/22 02:30 Albumin 3.7 g/dL (3.5-5.2) 01/31/22 02:30 Globulin 2.7 g/dL (1.3-4.6) 01/31/22 02:30 Procalcitonin 0.09 ng/mL (0-0.5) 01/30/22 13:38 Vitals Last Vital Signs Temp 98.0 F 01/31/22 11:22 Pulse 79 01/31/22 11:22 Resp 18 01/31/22 11:22 BP 137/69 01/31/22 11:22 Pulse Ox 98 01/31/22 11:22 O2 Del Method 01/31/22 11:22 Discharge Plan Discharge Patient Disposition: Xfer SNF Condition: Stable Prescriptions: New clonazepam 0.5 mg Tablet 0.25 mg PO BID PRN (Reason: Anxiety) 5 Days Qty: 5 0RF losartan 50 mg Tablet 50 mg PO DAILY 30 Days Qty: 30 0RF clonidine HCl 0.1 mg Tablet 0.1 mg PO Q12H 30 Days Qty: 60 0RF sucralfate 1 gram Tablet 1 g PO Q12H 30 Days Qty: 60 0RF isosorbide mononitrate 30 mg Tablet Extended Release 24 Hr 30 mg PO Q24H 30 Days Qty: 30 0RF nitroglycerin 0.4 mg Tablet, Sublingual 0.4 mg sublingual Q5M PRN (Reason: Chest Pain) 30 Days Qty: 30 0RF ranolazine 500 mg Tablet Extended Release 12 Hr 250 mg PO Q12H 30 Days Qty: 30 0RF Continued magnesium oxide 400 mg (241.3 mg magnesium) tablet 400 mg PO BID Humira Pen 40 mg/0.8 mL pen injector kit 40 mg SUBCUT Q14D Qty: 2 3RF oxycodone-acetaminophen 10-325 mg tablet 1 tab PO Q6H PRN (Reason: Pain) Belsomra 20 mg tablet 20 mg PO BEDTIME PRN (Reason: Sleep) Savella 50 mg tablet 50 mg PO BID metoprolol succinate 25 mg tablet extended release 24 hr 25 mg PO DAILY Qty: 90 3RF hydroxychloroquine 200 mg tablet See Rx Instructions .ROUTE .COMPLEX Qty: 135 0RF Dose Instruction: ALTERNATE TAKING 1 TABLET TODAY THEN 2 TABLETS TOMORROW. Rx Instructions: ALTERNATE TAKING 1 TABLET TODAY THEN 2 TABLETS TOMORROW. leflunomide 20 mg tablet See Rx Instructions .ROUTE .COMPLEX Qty: 90 0RF Dose Instruction: TAKE 1 TABLET BY MOUTH DAILY WITH FOOD Rx Instructions: TAKE 1 TABLET BY MOUTH DAILY WITH FOOD prednisone 5 mg tablet 5 mg PO BID Qty: 60 1RF pregabalin 100 mg capsule 100 mg PO BID temazepam 30 mg Capsule 30 mg PO BEDTIME fluticasone propionate 50 mcg/actuation spray,suspension 2 spray INTRANASAL DAILY Januvia 50 mg tablet 50 mg PO DAILY prednisone 10 mg tablet 10 mg PO DAILY Qty: 60 0RF Rx Instructions: 40 mg for 3 days, 30 mg for 3 days, 20 mg for 3 days and then continue 10 mg daily levothyroxine 1 tab PO DAILY Savella 50 mg Tablet 50 mg PO 2XD atorvastatin 20 mg tablet 20 mg PO DAILY 30 Days Qty: 30 0RF clopidogrel 75 mg tablet 75 mg PO DAILY 30 Days Qty: 30 0RF Adult Aspirin Regimen 81 mg tablet,delayed release (DR/EC) 81 mg PO DAILY 30 Days Qty: 60 0RF Changed pantoprazole 40 mg tablet,delayed release (DR/EC) 40 mg PO BIDWM 30 Days Qty: 60 0RF Discontinued losartan 25 mg tablet 100 mg PO DAILY Discharge Orders: Discharge Order (Routine); Ordered 01/31/22 Ordered By: Jesus Momin Referrals: Antoni Villalpando DO [Physician] - 2 months Crow Maldonado M.D [Physician] - 2 weeks Xavier Jim [Primary Care Provider] - 1-3 days Discharge Diet: Cardiac Discharge Activity: Resume usual activity Patient Instructions: Clonidine (By mouth), Clonazepam (By mouth), Nitroglycerin, Rapid Release (By mouth), Losartan (By mouth), Isosorbide Mononitrate (By mouth), Ranolazine (By mouth), Opioid Safety, Pain Management Activity Restrictions/Additional Instructions: - For your chest pain I have discharged on Ranexa to 50 mg every 12 hours, Imdur 30 mg once daily -If you develop recurrent chest pain please come back to the emergency room -Please follow-up with cardiology in 2 weeks for chest pain -Please monitor blood sugars closely -I have discharged you on Klonopin as needed for anxiety, do not drive or operate heavy machinery or drink while taking medication, do not take with temazepam do not take with oxycodone -Please monitor blood pressures closely, follow-up with primary care provider in the next few days for blood pressure check -Follow-up with primary care provider in 1 to 2 days for recheck hemoglobin, hemoglobin on discharge 8.8, if you develop bloody or black stools go to the emergency room -Please follow-up with general surgery 2 months for consideration of EGD Discharge Attestations Time Spent in Discharge Care*: less than 30 min Quality Metrics Clinical Quality Measures [ No reported AMI, CVA or VTE this stay] Coding Level of Care Code Acute Chg DC note Diagnoses CAD (coronary artery disease) I25.10 Diabetes E11.9 Syncope R55 EKG, abnormal R94.31 Hyponatremia E87.1
--- NOTE | 2022-01-31 16:22 | PC.NURSE ---
Discharge Note Patient discharged to home via private vehicle accompanied by family. Discharge instructions reviewed with patient and/or medicare sales representative. Mobile pharmacy medications and/or prescriptions provided. Belongings/home medications returned.
== END 2022-01-31 16:22 | disposition home or self-care (01) | DRG 281 ==
LOC: ER 21:46 → ICU 01-28 07:06 → MEDSURG 01-28 14:01
PROVIDERS: Emergency Medicine; Internal Medicine; Admitting Provider Internal Medicine; Emergency Provider Emergency Medicine; PCP Family Medicine; Visit Provider Family Medicine
DX: I21.4 Non-ST elevation (NSTEMI) myocardial infarction (principal); E87.1 Hypo-osmolality and hyponatremia; I25.119 Atherosclerotic heart disease of native coronary artery with unspecified angina pectoris; Z98.61 Coronary angioplasty status; E11.649 Type 2 diabetes mellitus with hypoglycemia without coma; K21.9 Gastro-esophageal reflux disease without esophagitis; I10 Essential (primary) hypertension; M54.16 Radiculopathy, lumbar region; M05.9 Rheumatoid arthritis with rheumatoid factor, unspecified; Z96.652 Presence of left artificial knee joint; F03.90 Unspecified dementia, unspecified severity, without behavioral disturbance, psychotic disturbance, mood disturbance, and anxiety; I07.1 Rheumatic tricuspid insufficiency; D50.9 Iron deficiency anemia, unspecified; M79.18 Myalgia, other site; Z79.84 Long term (current) use of oral hypoglycemic drugs; Z79.52 Long term (current) use of systemic steroids; Z79.82 Long term (current) use of aspirin; Z79.891 Long term (current) use of opiate analgesic; Z79.4 Long term (current) use of insulin
CPT/HCPCS: 36415; 36416; 71045; 80048; 80053; 82550; 82728; 82962; 83540; 83550; 83735; 84100; 84145; 84484; 85025; 85610; 85651; 85730; 86140; 93005; 93306; 96372; 97116; 97161; 97530; 99285; G0378; J1170; J1644; J1650; J2250; J2270; J2405; J3490; J7040; J7512

== ENCOUNTER → 2022-02-08 10:10 | Outpatient (BNVA) | payer MEDICARE, MEDICAID, SELFPAY | PROVIDERS: PCP Family Medicine; Visit Provider Nurse Practitioner Family | DX: I25.10 Atherosclerotic heart disease of native coronary artery without angina pectoris (principal); Z87.891 Personal history of nicotine dependence; I10 Essential (primary) hypertension | CPT/HCPCS: 99213 ==

== ENCOUNTER 2022-08-27 10:54 | Outpatient (CLI) | payer MEDICARE, MEDICAID, SELFPAY ==
--- NOTE | 2022-08-27 11:02 | MM_ITS ---
WS: [id number] DIAGNOSTIC BILATERAL DIGITAL BREAST TOMOSYNTHESIS MAMMOGRAPHY WITH CAD LEFT breast ultrasound, limited HISTORY: LT BR LUMP/ FELL COMPARISON: 04/09/2008 TECHNIQUE: Bilateral craniocaudad, mediolateral oblique, and mediolateral views are submitted with to mosynthesis and SM. Spot compression LEFT CC. Computer aided detection utilized. Breast composition: There are scattered areas of fibroglandular density. Ill-defined area of increase d density measuring 2.4 x 2.6 cm upper-outer quadrant of the LEFT breast near 1:00. There is an adjac ent oil cyst measuring 1.3 cm. Scattered calcifications within each breast. LEFT breast ultrasound, limited. Complex cystic mass LEFT breast 1:00, 5 cm from the nipple measures 2.3 x 1.9 x 2.9 cm. This is the a tomas of increased density seen on the mammogram and also the area injured in the recent fall. Consiste nt with an involuting hematoma. No increased vascularity. MM/[place] [id number] IMPRESSION: BI-RADS: 3-Probably Benign FOLLOW UP: 6 Month Follow-up Recommend 6 month ultrasound follow-up LEFT breast to ensure resolution of the hematoma.
--- NOTE | 2022-08-27 11:28 | US_ITS ---
WS: [id number] DIAGNOSTIC BILATERAL DIGITAL BREAST TOMOSYNTHESIS MAMMOGRAPHY WITH CAD LEFT breast ultrasound, limited HISTORY: LT BR LUMP/ FELL COMPARISON: 04/09/2008 TECHNIQUE: Bilateral craniocaudad, mediolateral oblique, and mediolateral views are submitted with to mosynthesis and SM. Spot compression LEFT CC. Computer aided detection utilized. Breast composition: There are scattered areas of fibroglandular density. Ill-defined area of increase d density measuring 2.4 x 2.6 cm upper-outer quadrant of the LEFT breast near 1:00. There is an adjac ent oil cyst measuring 1.3 cm. Scattered calcifications within each breast. LEFT breast ultrasound, limited. Complex cystic mass LEFT breast 1:00, 5 cm from the nipple measures 2.3 x 1.9 x 2.9 cm. This is the a tomas of increased density seen on the mammogram and also the area injured in the recent fall. Consiste nt with an involuting hematoma. No increased vascularity. US/US breast LT limited* [id number] IMPRESSION: BI-RADS: 3-Probably Benign FOLLOW UP: 6 Month Follow-up Recommend 6 month ultrasound follow-up LEFT breast to ensure resolution of the hematoma.
== END 2022-08-27 10:55 | disposition home or self-care (01) ==
LOC: RAD 10:58
PROVIDERS: PCP Family Medicine; Visit Provider Family Medicine
DX: N63.21 Unspecified lump in the left breast, upper outer quadrant (principal)
CPT/HCPCS: 76642; 77062; G0279

== ENCOUNTER 2023-01-01 09:21 | Emergency (ER) | payer MEDICARE, OTHER, SELFPAY ==
[2023-01-01 09:35] VITALS: BMI 27.6
--- NOTE | 2023-01-01 09:35 | W.ED.FALL ---
Documented by User: SHUN Dawn 01/01/23 11:58 HPI - Fall General: Chief Complaint: Fall Stated Complaint: fall, head lac, neck pain, bilateral knee pain Time Seen by Provider: 01/01/23 09:25 Source: patient and family (son) Mode of arrival: wheelchair Limitations: no limitations History of Present Illness: Patient is a 72-year-old female presents to ED today along with her son for evaluation following a fall. Son states he witnessed his mother tripped over an uneven concrete surface and strike directly onto her face and knees. She sustained abrasions to bilateral anterior knees but states she is not having any pain here and has been ambulatory without difficulty or assistance. She did sustain a forehead laceration. There was no LOC. Her main complaint seems to be neck pain. Upon my initial examination patient is not in a [id number] was promptly placed during my assessment. MD complaint: fall Onset (ago): hour(s) Fall from: standing Fall witnessed: yes, by family Place fall occurred: home Loss of consciousness: None Prolonged down time: no Symptoms prior to fall: none Context: tripped/slipped Location of injury: head, face and neck Location of injury - extremities: Bilateral: knee Associated symptoms-after fall: Reports no associated symptoms and neck pain; Denies chest pain, confusion, difficulty walking, headache(s) or lightheadedness Review of Systems Eyes: Denies: change in vision, blurry vision, photophobia, floaters or seeing flashes ENMT: Reports: sinus pain (forehead hematoma/laceration); Denies: ear or mastoid pain, ear discharge, nasal discharge or nasal congestion Card: Denies: chest pain, palpitations, lightheadedness, syncope or pre-syncope Resp: Denies: dyspnea GI: Denies: nausea or vomiting Musc: Reports: neck pain; Denies: back pain, extremity pain, extremity swelling, joint pain or joint swelling Skin/Breast: Reports: other (abrasions/lacerations) Neuro: Denies: headache(s), numbness in extremities, weakness in extremities, sensory changes, difficulty walking or confusion [facility] ED PFSH: Medical History Arthritis CAD (coronary artery disease) CAD (coronary artery disease) Chest pain Coronary artery disease Dementia Diabetes Diabetes Facet arthropathy, lumbar High risk medication use History of gastroesophageal reflux (GERD) HTN (hypertension) HTN (hypertension) with goal to be determined Hypoglycemia Immunization counseling Insulin overdose Joint pain Lumbar disc disease with radiculopathy Muscle pain Positive ARI (antinuclear antibody) Seropositive rheumatoid arthritis of multiple sites ST elevation (STEMI) myocardial infarction Surgical History H/O: hysterectomy History of back surgery History of cholecystectomy History of hysterectomy History of left knee surgery Knee replacement S/P cholecystectomy Family History Other CAD (coronary artery disease) Cancer Diabetes Hypertension Denies family history of Rheumatoid arthritis Lupus Hyperlipidemia Lung disease Stroke Social History Smoking and tobacco status: former smoker (12 years ago) Second hand smoke exposure: No Alcohol intake: never Substance/Drug Use: never Housing: House Physical Exam Const: COMMON NORMALS: no acute distress, average body habitus, patient oriented x3, no limitations, healthy appearing, alert and well nourished GENERAL APPEARANCE: cooperative ORIENTATION/CONSCIOUSNESS: Yes awake, Yes oriented to person, Yes oriented to place and Yes oriented to time HENMT: COMMON NORMALS: normocephalic, atraumatic and TM's normal bilaterally HEAD & SCALP: normal to inspection, normocephalic and atraumatic; no Springer's sign, no hematoma and no raccoon eyes FACE & SINUS: other (1.5cm central forehead laceration; mild nasal abrasion w/o tenderness) TYMPANIC MEMBRANE: TM's normal bilaterally MOUTH: other (no intraoral injuries noted) Eye: COMMON NORMALS: Equal, round and reactive pupils present and EOMs intact bilaterally GENERAL EYE: appearance normal, both eyes and all related structures and normal light reflex PUPIL: Yes Equal, round and reactive pupils present DIRECT OPHTHALMOSCOPY: Yes normal light reflex Neck/C-Spine: GENERAL: Yes normal visual inspection CERVICAL SPINE: Yes Cervical spine tenderness OTHER: c-collar was placed during my initial examination as she arrived to room without one Chest: COMMONS NORMALS: normal inspection of the chest and normal palpation of entire chest wall Resp: COMMON NORMALS: normal respiratory effort and clear to auscultation bilaterally AUSCULTATION: clear to auscultation bilaterally Cardio: COMMON NORMALS: regular rate and regular rhythm RATE: regular rate RHYTHM: regular rhythm GI: COMMON NORMALS: Normal to inspection, nondistended, normoactive bowel sounds present, Soft to palpation, non-tender, No hepatosplenomegaly present and no masses INSPECTION: Yes normal to inspection and No abdominal wall ecchymosis AUSCULTATION: Yes normoactive bowel sounds PALPATION: Yes Soft to palpation and Yes No hepatosplenomegaly present Back/Pelvis: COMMON NORMALS: thoracic and lumbar spine normal to inspection, no thoracic nor lumbar tenderness and thoraco-lumbar ROM normal Extremity: COMMON NORMALS: normal to inspection and full ROM GENERAL: Yes normal exam except as noted OTHER: mild anterior knee abrasions; full painless ROM Neuro: ESMER COMA SCALE: document GCS findings [place] coma scale eye opening: Spontaneous [place] coma scale verbal response: Orientated Esmer coma scale motor response: Obey commands Esmer coma scale total score: 15 COMMON NORMALS: patient oriented x3, CN's II-XII intact bilaterally, moves all extremities, no focal motor deficits, no sensory deficits noted and gait normal SENSORIUM/ORIENTATION: Yes alert, Yes oriented to person, Yes oriented to place and Yes oriented to time SPEECH: speech normal GAIT: Yes Normal gait present Skin: COMMON NORMALS: no rashes or lesions noted GENERAL SKIN EXAM: no rashes or lesions noted TRAUMA: abrasion and laceration Procedures Laceration Laceration 1: Site: face (forehead) Size (cm): 1.5 Description: linear Depth: simple, single layer Local Anesthetic: lidocaine 1% and with epi Amount of anesthesia used (mL): 1.0 Pre-repair: wound explored and irrigated extensively Skin layer closed with: nylon Size (cm): 6-0 Number of sutures: 3 Technique: simple, interrupted Course Consultations: Consultation #1: Dr. Murdock-recommends [facility] and he will follow up in office this week Vital Signs: Vital signs: Vital Signs Respiratory Rate 17 01/01/23 10:53 Pulse Oximetry 94 01/01/23 10:53 MDM - Fall Medical Decision Making Patient is a 72-year-old female who presents to the ED today with a witnessed trip and fall. She sustained a laceration to her forehead. This was copiously and irrigated and repaired as documented. Tetanus updated. On my initial examination patient had a complaint of neck pain. C-collar was promptly ordered as she arrived to her room without one. Prior to CT scan, patient had removed the c-collar herself stating it was uncomfortable and did not want to wear it. Was alerted by information technology instructor that they were suspicious of a C2 fracture. I immediately went back into patient's room and urged her to place her c-collar back on it which she was agreeable to. Radiologist contacted me shortly later in regards to findings stating she had a C1 and C2 fracture. CT results were discussed with Dr. Murdock who recommends placing patient in a [facility] collar and he will follow-up with this week. I spoke to case management who was able to secure patient an appointment with him on at 10:30. Stated patient needs to stay in her collar AT ALL TIMES until this appointment. Discharge Plan Discharge Patient Disposition: Home Clinical Impression: Fall on same level from tripping Forehead laceration Qualifiers: Encounter type: initial encounter Qualified Code(s): S01.81XA - Laceration without foreign body of other part of head, initial encounter Closed C1 fracture Qualifiers: Encounter type: initial encounter Fracture morphology: unspecified fracture morphology Fracture alignment: nondisplaced Qualified Code(s): S12.001A - Unspecified nondisplaced fracture of first cervical vertebra, initial encounter for closed fracture Closed C2 fracture Qualifiers: Encounter type: initial encounter Fracture morphology: type II dens Fracture alignment: nondisplaced Qualified Code(s): S12.112A - Nondisplaced Type II dens fracture, initial encounter for closed fracture Condition: Stable Prescriptions: No Action oxycodone-acetaminophen 10-325 mg tablet 1 tab PO Q6H PRN (Reason: Pain) metoprolol succinate 25 mg tablet extended release 24 hr 25 mg PO DAILY Qty: 90 3RF hydroxychloroquine 200 mg tablet See Rx Instructions .ROUTE .COMPLEX Qty: 135 0RF Dose Instruction: ALTERNATE TAKING 1 TABLET TODAY THEN 2 TABLETS TOMORROW. Rx Instructions: ALTERNATE TAKING 1 TABLET TODAY THEN 2 TABLETS TOMORROW. fluticasone propionate 50 mcg/actuation spray,suspension 2 spray INTRANASAL DAILY PRN (Reason: Allergic Symptoms) Januvia 50 mg tablet 50 mg PO DAILY pregabalin 100 mg capsule 100 mg PO BID levothyroxine 0.125 mg PO DAILY atorvastatin 20 mg tablet 20 mg PO DAILY 30 Days Qty: 30 0RF clopidogrel 75 mg tablet 75 mg PO DAILY 30 Days Qty: 30 0RF aspirin [Adult Aspirin Regimen] 81 mg tablet,delayed release (DR/EC) 81 mg PO DAILY 30 Days Qty: 60 0RF pantoprazole 40 mg tablet,delayed release (DR/EC) 40 mg PO BIDWM 30 Days Qty: 60 0RF leflunomide 20 mg tablet 20 mg PO DAILY Humira Pen 40 mg/0.8 mL pen injector kit 12 mg SUBCUT Q14D losartan 50 mg tablet 50 mg PO DAILY fluoxetine 40 mg capsule 40 mg PO DAILY trazodone 50 mg tablet 100 mg PO BEDTIME isosorbide mononitrate 30 mg tablet extended release 24 hr 30 mg PO DAILY oxycodone-acetaminophen 10-325 mg tablet 1 tab PO Q6H PRN (Reason: Pain) ramelteon 8 mg tablet 8 mg PO DAILY ranolazine 500 mg tablet extended release 12 hr 250 mg PO Q12H Discharge Orders: Discharge ED (Routine); Ordered 01/01/23 Ordered By: Marjorie Alejandre Referrals: Brayden Murdock DO [Physician] - Xavier Jim [Primary Care Provider] - Patient Instructions: Cervical Fracture (DC), [facility] Collar (ED), Opioid Safety, Pain Management Activity Restrictions/Additional Instructions: As we discussed Dr. Murdock will see you in his office this at 10:30. It is imperative that you stay in your cervical collar at all times-not doing so could risk permanent pain, nerve damage, or paralysis. Keep wound/laceration clean with warm soap and water twice daily. Monitor for signs of infection such as redness, swelling, increased pain, or drainage. Please seek medical re-evaluation if these occur. If you received sutures today these will need to be removed (unless you were told by the provider that they are absorbable). The provider should have discussed with you the length of time until removal-5 TO 7 DAYS. You may return to the emergency department for this service. Coding Level of Care Code ED Ammunition Storekeeper for Chg Fwd Documented by User: Marty Cevallos DO 01/01/23 13:06 HPI - Fall General: Chief Complaint: Fall Stated Complaint: fall, head lac, neck pain, bilateral knee pain Time Seen by Provider: 01/01/23 09:25 PFSH ED PFSH: Medical History Arthritis CAD (coronary artery disease) CAD (coronary artery disease) Chest pain Coronary artery disease Dementia Diabetes Diabetes Facet arthropathy, lumbar High risk medication use History of gastroesophageal reflux (GERD) HTN (hypertension) HTN (hypertension) with goal to be determined Hypoglycemia Immunization counseling Insulin overdose Joint pain Lumbar disc disease with radiculopathy Muscle pain Positive ARI (antinuclear antibody) Seropositive rheumatoid arthritis of multiple sites ST elevation (STEMI) myocardial infarction Surgical History H/O: hysterectomy History of back surgery History of cholecystectomy History of hysterectomy History of left knee surgery Knee replacement S/P cholecystectomy Family History Other CAD (coronary artery disease) Cancer Diabetes Hypertension Denies family history of Rheumatoid arthritis Lupus Hyperlipidemia Lung disease Stroke Social History Smoking and tobacco status: former smoker (12 years ago) Second hand smoke exposure: No Alcohol intake: never Substance/Drug Use: never Housing: House Physical Exam Neuro: ESMER COMA SCALE: document GCS findings Esmer coma scale total score: 15 Course Vital Signs: Vital signs: Vital Signs Respiratory Rate 17 01/01/23 10:53 Pulse Oximetry 94 01/01/23 10:53 MDM - Fall Medical Decision Making Patient is a 72-year-old female who presents to the ED today with a witnessed trip and fall. She sustained a laceration to her forehead. This was copiously and irrigated and repaired as documented. Tetanus updated. On my initial examination patient had a complaint of neck pain. C-collar was promptly ordered as she arrived to her room without one. Prior to CT scan, patient had removed the c-collar herself stating it was uncomfortable and did not want to wear it. Was alerted by information technology instructor that they were suspicious of a C2 fracture. I immediately went back into patient's room and urged her to place her c-collar back on it which she was agreeable to. Radiologist contacted me shortly later in regards to findings stating she had a C1 and C2 fracture. CT results were discussed with Dr. Murdock who recommends placing patient in a [facility] collar and he will follow-up with this week. I spoke to case management who was able to secure patient an appointment with him on at 10:30. Stated patient needs to stay in her collar AT ALL TIMES until this appointment. Chart reviewed and patient discussed with midlevel. Agree with assessment and plan. Discharge Plan Discharge Patient Disposition: Home Clinical Impression: Fall on same level from tripping Forehead laceration Qualifiers: Encounter type: initial encounter Qualified Code(s): S01.81XA - Laceration without foreign body of other part of head, initial encounter Closed C1 fracture Qualifiers: Encounter type: initial encounter Fracture morphology: unspecified fracture morphology Fracture alignment: nondisplaced Qualified Code(s): S12.001A - Unspecified nondisplaced fracture of first cervical vertebra, initial encounter for closed fracture Closed C2 fracture Qualifiers: Encounter type: initial encounter Fracture morphology: type II dens Fracture alignment: nondisplaced Qualified Code(s): S12.112A - Nondisplaced Type II dens fracture, initial encounter for closed fracture Condition: Stable Prescriptions: No Action oxycodone-acetaminophen 10-325 mg tablet 1 tab PO Q6H PRN (Reason: Pain) metoprolol succinate 25 mg tablet extended release 24 hr 25 mg PO DAILY Qty: 90 3RF hydroxychloroquine 200 mg tablet See Rx Instructions .ROUTE .COMPLEX Qty: 135 0RF Dose Instruction: ALTERNATE TAKING 1 TABLET TODAY THEN 2 TABLETS TOMORROW. Rx Instructions: ALTERNATE TAKING 1 TABLET TODAY THEN 2 TABLETS TOMORROW. fluticasone propionate 50 mcg/actuation spray,suspension 2 spray INTRANASAL DAILY PRN (Reason: Allergic Symptoms) Januvia 50 mg tablet 50 mg PO DAILY pregabalin 100 mg capsule 100 mg PO BID levothyroxine 0.125 mg PO DAILY atorvastatin 20 mg tablet 20 mg PO DAILY 30 Days Qty: 30 0RF clopidogrel 75 mg tablet 75 mg PO DAILY 30 Days Qty: 30 0RF aspirin [Adult Aspirin Regimen] 81 mg tablet,delayed release (DR/EC) 81 mg PO DAILY 30 Days Qty: 60 0RF pantoprazole 40 mg tablet,delayed release (DR/EC) 40 mg PO BIDWM 30 Days Qty: 60 0RF leflunomide 20 mg tablet 20 mg PO DAILY Humira Pen 40 mg/0.8 mL pen injector kit 12 mg SUBCUT Q14D losartan 50 mg tablet 50 mg PO DAILY fluoxetine 40 mg capsule 40 mg PO DAILY trazodone 50 mg tablet 100 mg PO BEDTIME isosorbide mononitrate 30 mg tablet extended release 24 hr 30 mg PO DAILY oxycodone-acetaminophen 10-325 mg tablet 1 tab PO Q6H PRN (Reason: Pain) ramelteon 8 mg tablet 8 mg PO DAILY ranolazine 500 mg tablet extended release 12 hr 250 mg PO Q12H Discharge Orders: Discharge ED (Routine); Ordered 01/01/23 Ordered By: Marjorie Alejandre Referrals: Brayden Murdock DO [Physician] - Xavier Jim [Primary Care Provider] - Patient Instructions: Cervical Fracture (DC), [facility] Collar (ED), Opioid Safety, Pain Management Activity Restrictions/Additional Instructions: As we discussed Dr. Murdock will see you in his office this at 10:30. It is imperative that you stay in your cervical collar at all times-not doing so could risk permanent pain, nerve damage, or paralysis. Keep wound/laceration clean with warm soap and water twice daily. Monitor for signs of infection such as redness, swelling, increased pain, or drainage. Please seek medical re-evaluation if these occur. If you received sutures today these will need to be removed (unless you were told by the provider that they are absorbable). The provider should have discussed with you the length of time until removal-5 TO 7 DAYS. You may return to the emergency department for this service. Coding Level of Care Code ED Ammunition Storekeeper for Kimberley Farooq
--- NOTE | 2023-01-01 09:49 | CT_ITS ---
WS: [id number] CT HEAD TECHNIQUE: Noncontrast CT of the head obtained from the skullbase to the vertex. CLINICAL INFORMATION: fall/trauma COMPARISON: None. DLP: 1242.[address] scans at [facility] use at least one of these dose optimization techniques: automated e xposure control; mA and/or kV adjustment per patient size (includes targeted exams where dose is matc hed to clinical indication); or iterative reconstruction. FINDINGS: No evidence of intracranial hemorrhage or mass effect. Ventricular system and basal cisterns are angel nt. Mild small vessel changes with mild parenchymal volume loss. No extra-axial fluid collections. No evidence of mass or mass effect. Vascular calcification. Tiny chronic lacunar infarct LEFT lateral t halamus. Paranasal sinuses and mastoid air cells are well aerated. Soft tissue scalp hematoma overlying the fr ontal lobe midline calvarium IMPRESSION: 1. No evidence of intracranial hemorrhage or mass effect. 2. Soft tissue scalp hematoma overlying the frontal lobe midline calvarium 3. No visualized calvarial fractures. 4. No acute intracranial findings.
--- NOTE | 2023-01-01 09:49 | CT_ITS ---
WS: [id number] CT CERVICAL SPINE TECHNIQUE: Noncontrast CT of the cervical spine with coronal and sagittal reformatted images. CLINICAL INFORMATION: fall/trauma COMPARISON: Outside CT 2019. DLP: 1242.[address] scans at [facility] use at least one of these dose optimization techniques: automated e xposure control; mA and/or kV adjustment per patient size (includes targeted exams where dose is matc hed to clinical indication); or iterative reconstruction. FINDINGS: Straightening of the normal cervical lordosis. Type II dens fracture is new compared to previous and has an acute appearance. No displacement. No significant cord impingement. Slight posterior angulatio n of the distal fragment. Normal C1-2 articulation. Pannus formation C1-2 articulation. Additional no ndisplaced fracture with slight widening involving the LEFT C1 ring. Mild widening measures 3.6 mm. N ormal occipital condyles. Moderate spondylitic changes. Disc osteophyte complexes worse at C4-C6. No high-grade central canal s tenosis. Vascular calcification. IMPRESSION: Nondisplaced type II dens fracture and LEFT C1 ring fracture described above Notified SHUN Dawn at 01/01/2023 10:22 AM.
--- NOTE | 2023-01-01 10:04 | PC.NURSE ---
Placed c-collar on patient per SHUN Dawn's instructions. Patient wore it for approximately 1 minute and told me take this thing off me now! so I then removed the c-collar.
[2023-01-01] MEDS: tetanus-dipt-pertussis 0.5 mL SDV IM (10:11)
[2023-01-01 10:53] VITALS: RESP 17; O2SAT 94
[2023-01-01] MEDS: morphine 4 mg/mL SDV 1 mL IVP (10:53)
[2023-01-01] MEDS: ondansetron 2 mg/ML SDV 2 mL 4 MG IVP (10:53)
--- NOTE | 2023-01-01 11:24 | DCPLANNER ---
restaurant area manager was asked to call the ortho clinic and schedule a follow up appointment for patient this week before patient is discharged from the ER. restaurant area manager sent patients information to the front office staff at ortho. restaurant area manager called the ortho clinic, spoke with [place], gave clinic patients information a follow up appointment was scheduled for , January 03, 2023 at 10:[address] Murdock. restaurant area manager informed patient and ER physician of the scheduled appointment.
== END 2023-01-01 12:47 | disposition home or self-care (01) ==
PROVIDERS: Emergency Provider Physician Assistant; PCP Family Medicine
DX: S01.81XA Laceration without foreign body of other part of head, initial encounter (principal); S12.001A Unspecified nondisplaced fracture of first cervical vertebra, initial encounter for closed fracture; S12.112A Nondisplaced Type II dens fracture, initial encounter for closed fracture; Z79.82 Long term (current) use of aspirin; Z79.02 Long term (current) use of antithrombotics/antiplatelets; I25.10 Atherosclerotic heart disease of native coronary artery without angina pectoris; F03.90 Unspecified dementia, unspecified severity, without behavioral disturbance, psychotic disturbance, mood disturbance, and anxiety; E11.9 Type 2 diabetes mellitus without complications; I10 Essential (primary) hypertension; I25.2 Old myocardial infarction; Z87.891 Personal history of nicotine dependence; W18.09XA Striking against other object with subsequent fall, initial encounter; Z23 Encounter for immunization
CPT/HCPCS: 12011; 70450; 72125; 90471; 90715; 96374; 96375; 97760; 99285; J2270; J2405; L0172

== ENCOUNTER → 2023-01-03 10:21 | Outpatient (BNVA) | payer MEDICARE, SELFPAY | PROVIDERS: PCP Family Medicine; Referring Provider Physician Assistant; Visit Provider Orthopaedic Surgery | DX: S12.000A Unspecified displaced fracture of first cervical vertebra, initial encounter for closed fracture (principal); S12.100A Unspecified displaced fracture of second cervical vertebra, initial encounter for closed fracture; S12.110A Anterior displaced Type II dens fracture, initial encounter for closed fracture; W19.XXXA Unspecified fall, initial encounter; M50.322 Other cervical disc degeneration at C5-C6 level; M50.321 Other cervical disc degeneration at C4-C5 level; M47.812 Spondylosis without myelopathy or radiculopathy, cervical region | CPT/HCPCS: 72040; 99214 ==

== ENCOUNTER → 2023-01-24 08:09 | Outpatient (BNVA) | payer MEDICARE, SELFPAY | PROVIDERS: PCP Family Medicine; Visit Provider Orthopaedic Surgery | DX: M50.322 Other cervical disc degeneration at C5-C6 level (principal); M50.323 Other cervical disc degeneration at C6-C7 level; M25.78 Osteophyte, vertebrae; M47.812 Spondylosis without myelopathy or radiculopathy, cervical region | CPT/HCPCS: 72040; 99213 ==

== ENCOUNTER → 2023-02-14 11:03 | Outpatient (BNVA) | payer MEDICARE, SELFPAY | PROVIDERS: PCP Family Medicine; Visit Provider Orthopaedic Surgery | DX: S12.110A Anterior displaced Type II dens fracture, initial encounter for closed fracture (principal); W01.0XXA Fall on same level from slipping, tripping and stumbling without subsequent striking against object, initial encounter | CPT/HCPCS: 72040; 99213 ==

== ENCOUNTER → 2023-03-07 08:33 | Outpatient (BNVA) | payer MEDICARE, SELFPAY | PROVIDERS: PCP Family Medicine; Visit Provider Orthopaedic Surgery | DX: S12.110D Anterior displaced Type II dens fracture, subsequent encounter for fracture with routine healing (principal); X58.XXXD Exposure to other specified factors, subsequent encounter | CPT/HCPCS: 72040; 99213 ==

== ENCOUNTER → 2023-03-28 09:05 | Outpatient (BNVA) | payer MEDICARE, SELFPAY | PROVIDERS: PCP Family Medicine; Visit Provider Orthopaedic Surgery | DX: S12.110D Anterior displaced Type II dens fracture, subsequent encounter for fracture with routine healing (principal); W01.0XXA Fall on same level from slipping, tripping and stumbling without subsequent striking against object, initial encounter; M48.02 Spinal stenosis, cervical region | CPT/HCPCS: 72040; 99213 ==

== ENCOUNTER 2023-05-28 11:57 | Outpatient (CLI) | payer MEDICARE, OTHER, SELFPAY ==
--- NOTE | 2023-05-28 12:04 | US_ITS ---
WS: [id number] ULTRASOUND LEFT BREAST HISTORY: 6MFU COMPARISON: Mammogram 08/27/2022 and breast ultrasound 08/27/2022 TECHNIQUE: 2-D and Doppler. Previously described complex hematoma in the LEFT breast at 1:00 has significantly decreased in size. There is residual complex cystic collection measuring 10 x 10 x 5 mm at 1:00 at the site of the prev iously described hematoma. There is additional area of dense shadowing just medial and posterior to t his residual hematoma. Upon reviewing the mammogram this is most consistent with the oil cyst. IMPRESSION: US/US breast LT limited* [id number] BI-RADS: 2-Benign FOLLOW-UP: See Report Patient to return for annual mammogram in August 2023. The hematoma and the oil cy st can be further evaluated at that time.
== END 2023-05-28 11:58 | disposition home or self-care (01) ==
LOC: RAD 11:58
PROVIDERS: PCP Family Medicine; Visit Provider Family Medicine
DX: N60.02 Solitary cyst of left breast (principal)
CPT/HCPCS: 76642

== ENCOUNTER 2024-01-02 11:15 | Outpatient (CLI) | payer MEDICARE, OTHER, SELFPAY ==
--- NOTE | 2024-01-02 11:23 | MM_ITS ---
WS: [id number] BILATERAL SCREENING DIGITAL TOMOSYNTHESIS MAMMOGRAM WITH CAD HISTORY: SCREENING COMPARISON: 08/27/2022, 12/20/2020, LEFT breast ultrasound 08/27/2022 and 05/28/2023 Bilateral CC and MLO views with tomosynthesis and synthetic mammography submitted. Computer aided det ection analyzed. Breast composition: There are scattered areas of fibroglandular density. No suspicious masses, microc alcifications or architectural distortion. The LEFT breast hematoma that was described on most recent study has continued to involute over time as expected. There is still persistent asymmetry which is of mixed density measuring 10 x 9 mm in the LEFT breast at 1:00. This corresponds to the previously d escribed mammographic and ultrasound finding. Benign calcifications in each breast. MM/[place] [id number] IMPRESSION: BI-RADS: 2 - Benign. FOLLOW UP: 1 Year Follow-up
== END 2024-01-02 11:16 | disposition home or self-care (01) ==
LOC: RAD 11:16
PROVIDERS: PCP Family Medicine; Visit Provider Family Medicine
DX: Z12.31 Encounter for screening mammogram for malignant neoplasm of breast (principal); R92.323 Mammographic fibroglandular density, bilateral breasts; N64.89 Other specified disorders of breast; R92.1 Mammographic calcification found on diagnostic imaging of breast
CPT/HCPCS: 77063; 77067

== ENCOUNTER → 2024-01-08 12:46 | Outpatient (BNVA) | payer MEDICARE, OTHER, SELFPAY | PROVIDERS: PCP Family Medicine; Referring Provider Registered Nurse; Visit Provider Internal Medicine | DX: I25.10 Atherosclerotic heart disease of native coronary artery without angina pectoris (principal); E11.9 Type 2 diabetes mellitus without complications; Z87.891 Personal history of nicotine dependence; I10 Essential (primary) hypertension; Z79.84 Long term (current) use of oral hypoglycemic drugs | CPT/HCPCS: 99214 ==

== ENCOUNTER → 2024-07-15 15:41 | Outpatient (BNVA) | payer MEDICARE, OTHER, SELFPAY | PROVIDERS: PCP Family Medicine; Visit Provider Internal Medicine | DX: I25.10 Atherosclerotic heart disease of native coronary artery without angina pectoris (principal); I35.0 Nonrheumatic aortic (valve) stenosis; I25.2 Old myocardial infarction; E11.9 Type 2 diabetes mellitus without complications; Z79.84 Long term (current) use of oral hypoglycemic drugs; Z87.891 Personal history of nicotine dependence | CPT/HCPCS: 99214 ==

== ENCOUNTER 2024-07-20 18:39 | Emergency (ER) | payer MEDICARE, OTHER, SELFPAY ==
[2024-07-20] VITALS (9 sets, daily range): BP systolic 92–136; BP diastolic 55–84; PULSE 67–96; RESP 16–18; TEMP 36.9; O2SAT 91–96; BMI 25.6
--- NOTE | 2024-07-20 18:44 | XRR_ITS ---
PROCEDURE INFORMATION: Exam: XR Chest Exam date and time: 07/20/2024 7:21 PM Age: 74 years old Clinical indication: Fever TECHNIQUE: Imaging protocol: Radiologic exam of the chest. Views: 1 view. COMPARISON: CR XR chest 1V portable [id number] 01/27/2022 7:16 PM FINDINGS: Lungs: Left lower lobe atelectasis versus minimal infiltrate. Pleural spaces: Unremarkable. No pleural effusion. No pneumothorax. Heart/Mediastinum: Cardiomegaly. Vasculature: Aortic atherosclerotic calcifications. Bones/joints: Unremarkable. XR/XR chest 1V portable [id number] IMPRESSION: 1. Cardiomegaly. 2. Aortic atherosclerotic calcifications. 3. Left lower lobe atelectasis versus minimal infiltrate.
--- NOTE | 2024-07-20 19:25 | W.ED.URI ---
HPI - URI/Sore Throat General: Chief Complaint: Upper Respiratory Infection Stated Complaint: fever,n/v/d, dizzy, weakness Time Seen by Provider: 07/20/24 19:21 History of Present Illness: 74-year-old female with a history of arthritis, dementia, coronary artery disease, hypertension, diabetes and GERD who presents to the emergency room with fevers, cough, nausea, vomiting, diarrhea, malaise and weakness. This been going on for several days. She says she is quite short of breath. She feels very weak. Family says she is very stubborn and would not come in the emergency room until today. She is a bit hypotensive on presentation. No history of COPD. Not requiring oxygen on presentation. Related Data Home Medications ?Medication ?Instructions ?Recorded ?Confirmed sitagliptin phosphate 50 mg tablet 50 mg PO DAILY 01/23/22 07/15/24 (Januvia) pregabalin 100 mg capsule 100 mg PO BID 02/08/22 07/15/24 adalimumab 40 mg/0.8 mL 12 mg SUBCUT Q14D 01/01/23 07/15/24 subcutaneous pen kit (Humira Pen) fluoxetine 40 mg capsule 40 mg PO DAILY 01/01/23 07/15/24 isosorbide mononitrate 30 mg 30 mg PO DAILY 01/01/23 07/15/24 tablet,extended release 24 hr leflunomide 20 mg tablet 20 mg PO DAILY 01/01/23 07/15/24 losartan 50 mg tablet 50 mg PO DAILY 01/01/23 07/15/24 oxycodone-acetaminophen 10 mg-325 1 tab PO Q6H PRN Pain 01/01/23 07/15/24 mg tablet ranolazine 500 mg tablet,extended 250 mg PO Q12H 01/01/23 07/15/24 release,12 hr trazodone 50 mg tablet 100 mg PO BEDTIME 01/01/23 07/15/24 levothyroxine 150 mcg tablet 150 mcg PO DAILY 07/15/24 07/15/24 (Synthroid) mirabegron 25 mg tablet,extended 25 mg PO DAILY 07/15/24 07/15/24 release 24 hr Previous Rx's ?Medication ?Instructions ?Recorded aspirin 81 mg tablet,delayed 81 mg PO DAILY 30 days #60 tabs 01/31/22 release (Adult Aspirin Regimen) atorvastatin 20 mg tablet 20 mg PO DAILY 30 days #30 tabs 01/31/22 clopidogrel 75 mg tablet 75 mg PO DAILY 30 days #30 tabs 01/31/22 pantoprazole 40 mg tablet,delayed 40 mg PO BIDWM 30 days #60 tabs 01/31/22 release amlodipine 10 mg tablet 10 mg PO DAILY #90 tabs 01/08/24 dexamethasone 6 mg tablet 6 mg PO DAILY 5 days #5 tabs 07/20/24 doxycycline hyclate 100 mg capsule 100 mg PO BID 7 days #14 caps 07/20/24 ondansetron 4 mg disintegrating 4 mg PO Q8H PRN nausea and 07/20/24 tablet vomiting #10 tabs Allergies Allergy/AdvReac Type Severity Reaction Status Date / Time lisinopril Allergy Intermediate ADR-Cough Verified 07/20/24 18:47 Review of Systems Narrative: Constitutional symptoms: Negative except as documented in HPI. Skin symptoms: Negative except as documented in HPI. Eye symptoms: Negative except as documented in HPI. ENMT symptoms: Negative except as documented in HPI. Respiratory symptoms: Negative except as documented in HPI. Cardiovascular symptoms: Negative except as documented in HPI. Gastrointestinal symptoms: Negative except as documented in HPI. Genitourinary symptoms: Negative except as documented in HPI. Musculoskeletal symptoms: Negative except as documented in HPI. Neurologic symptoms: Negative except as documented in HPI. Psychiatric symptoms: Negative except as documented in HPI. Endocrine symptoms: Negative except as documented in HPI. PFSH ED PFSH: Medical History Arthritis Dementia CAD (coronary artery disease) HTN (hypertension) Diabetes Hypoglycemia Insulin overdose ST elevation (STEMI) myocardial infarction Lumbar disc disease with radiculopathy Facet arthropathy, lumbar Positive ARI (antinuclear antibody) Immunization counseling High risk medication use Seropositive rheumatoid arthritis of multiple sites Joint pain Muscle pain History of gastroesophageal reflux (GERD) HTN (hypertension) with goal to be determined Chest pain CAD (coronary artery disease) Coronary artery disease Diabetes Surgical History S/P cholecystectomy H/O: hysterectomy History of left knee surgery Knee replacement History of back surgery History of cholecystectomy History of hysterectomy Family History Other CAD (coronary artery disease) Cancer Diabetes Hypertension Denies family history of Rheumatoid arthritis Lupus Hyperlipidemia Lung disease Stroke Social History Smoking and tobacco/nicotine status: former use of tobacco/nicotine Second hand smoke exposure: No Alcohol intake: never Substance/Drug Use: never Housing: House Physical Exam Narrative: EXAM NARRATIVE: General: Alert, no acute distress. Skin: Warm, dry. Head: Normocephalic, atraumatic. Neck: Supple, trachea midline. Eye: Extraocular movements are intact. Ears, nose, mouth and throat: Dry oral mucosa Cardiovascular: Regular, Normal peripheral perfusion. Respiratory: Lungs are clear to auscultation, respirations are non-labored, breath sounds are equal, Symmetrical chest wall expansion. Gastrointestinal: Soft, Nontender, Non distended Musculoskeletal: Normal ROM, no deformity. Neurological: Alert and oriented, No focal neurological deficit observed. Psychiatric: Cooperative, appropriate mood & affect. Course Vital Signs: Vital signs: Vital Signs Temperature 98.4 F 07/20/24 18:40 Pulse Rate 77 07/20/24 20:30 Respiratory Rate 16 07/20/24 20:30 Blood Pressure 111/75 07/20/24 20:30 Pulse Oximetry 94 07/20/24 20:30 Oxygen Delivery Me thod Room Air 07/20/24 20:00 MDM - URI/Sore Throat Medical Decision Making Differential diagnosis for patient with shortness of breath includes but is not limited to and based on the above HPI, review of systems and physical exam: Pneumonia. Bronchitis. Asthma or COPD with acute exacerbation. Acute coronary syndrome / IA. Pulmonary embolism. Anxiety. Congestive heart failure. Viral infections including influenza and Covid-19. Atrial fibrillation. Anxiety. Pleural effusion. Pneumothorax. Orders placed to evaluate differential diagnosis based on the above differential, HPI and physical exam Chest x-ray: Possibly some minimal infiltrate in the left lower lobe. No pneumothorax. This was reviewed and interpreted by myself the emergency room physician. I also reviewed the radiology report. Lab Review: Laboratory results were reviewed and interpreted by myself the emergency room physician. No leukocytosis. No anemia. She does have some acute renal insufficiency with a BUN and creatinine of 30 and 1.8. Her baseline is between 1 and 1.2. Patient is influenza positive. Patient does have 6-10 whites but no bacteria and 11-20 squamous epithelials which just is a nonclean-catch. I reviewed the patient's medical record. Reexamination: Patient remained stable. No increased work of breathing. No altered mental status. No focal motor deficits. She is tolerating fluids at this point. We discussed admission versus going home. She prefers to go home at this time. Also discussed that with her worsening fevers today we will place her on some antibiotic in case she is developing secondary pneumonia Assessment and plan: Influenza A Dehydration Acute renal insufficiency ? 2 L normal saline bolus. IV Decadron. IV Zofran. IV doxycycline. - Discharged home - Discussed plan with patient. Answered any questions. - Evaluation and treatment of this problem were appropriate in the emergency setting. Lab Data 07/20/24 19:37 07/20/24 19:37 Radiology Impressions Chest X-Ray 07/20/24 18:44 IMPRESSION: 1. Cardiomegaly. 2. Aortic atherosclerotic calcifications. 3. Left lower lobe atelectasis versus minimal infiltrate. Laboratory Results WBC 9.32 10^3/uL (3.29-11.43) 07/20/24 19:37 RBC 4.72 10^6/uL (3.85-5.65) 07/20/24 19:37 Hgb 12.90 g/dL (11.27-16.99) 07/20/24 19:37 Hct 39.4 % (36-47) 07/20/24 19:37 MCV 83.5 fl (85-98) L 07/20/24 19:37 MCH 27.3 pg (27-33) 07/20/24 19:37 MCHC 32.7 g/dL (30-55) 07/20/24 19:37 RDW 14.3 % (12.1-15.1) 07/20/24 19:37 Plt Count 144 10^3/cmm (157-399) L 07/20/24 19:37 MPV 12.1 fL (7.4-10.4) H 07/20/24 19:37 Neut % (Auto) 77.6 % 07/20/24 19:37 Lymph % (Auto) 11.5 % 07/20/24 19:37 [place] % (Auto) 9.5 % 07/20/24 19:37 Eos % (Auto) 0.1 % 07/20/24 19:37 Baso % (Auto) 0.2 % 07/20/24 19:37 Neut # (Auto) 7.23 10^3/uL (1.8-7.7) 07/20/24 19:37 Lymph # (Auto) 1.1 10^3/uL (0.8-4.8) 07/20/24 19:37 [place] # (Auto) 0.9 10^3/uL (0.2-0.9) 07/20/24 19:37 Eos # (Auto) 0.0 10^3/uL (0.0-0.8) 07/20/24 19:37 Baso # (Auto) 0.0 10^3/uL (0.0-0.1) 07/20/24 19:37 Nucleated RBC % (auto) 0 % 07/20/24 19:37 Nucleated RBCs # 0.0 /100WBC 07/20/24 19:37 Sodium 132 mmol/L (136-145) L 07/20/24 19:37 Potassium 3.4 mmol/L (3.5-5.1) L 07/20/24 19:37 Chloride 90 mmol/L (98-107) L 07/20/24 19:37 Carbon Dioxide 23 mmol/L (22-29) 07/20/24 19:37 Anion Gap 22.4 (5-19) H 07/20/24 19:37 BUN 30 mg/dL (8-23) H 07/20/24 19:37 Creatinine 1.8 mg/dL (0.5-0.9) H 07/20/24 19:37 GFR Calculation Not Reportable 07/20/24 19:37 Glucose 231 mg/dL (65-115) H 07/20/24 19:37 Calculated Osmolality 288 mOsm/kg (285-295) 07/20/24 19:37 Lactic Acid 1.9 mmol/L (0.5-2.2) 07/20/24 19:37 Calcium 9.2 mg/dL (8.5-10.5) 07/20/24 19:37 Total Bilirubin 0.7 mg/dL (0.15-1.2) 07/20/24 19:37 AST 34 U/L (0-32) H 07/20/24 19:37 ALT 17 U/L (0-33) 07/20/24 19:37 Alkaline Phosphatase 69 U/L (35-105) 07/20/24 19:37 C-Reactive Protein 137.6 mg/L (0.0-4.9) H 07/20/24 19:37 Total Protein 7.9 g/dL (6.6-8.7) 07/20/24 19:37 Albumin 4.2 g/dL (3.5-5.2) 07/20/24 19:37 Globulin 3.7 g/dL (1.3-4.6) 07/20/24 19:37 Lipase 16 U/L (13-60) 07/20/24 19:37 Procalcitonin 0.30 ng/mL (0-0.5) 07/20/24 19:37 Urine Color Dark yellow (Yellow) A 07/20/24 21: Urine Appearance Cloudy (CLEAR) A 07/20/24 21: Urine pH 5.0 (5-7) 07/20/24 21:05 Ur Specific [place] 1.023 (1.005-1.030) 07/20/24 21:05 Urine Protein 2+ (Negative) A 07/20/24 21: Urine Glucose (UA) 3+ (Normal) H 07/20/24 21:05 Urine Ketones 1+ (Negative) H 07/20/24 21:05 Urine Blood 1+ (Negative) A 07/20/24 21: Urine Nitrate Negative (Negative) 07/20/24 21: Urine Bilirubin Negative (Negative) 07/20/24 21:05 Urine Urobilinogen 1.0 mg/dL (Negative) 07/20/24 21:05 Ur Leukocyte Esterase Trace (Negative) A 07/20/24 21:05 Urine RBC 0-2 /hpf (0-2) 07/20/24 21:05 Urine WBC 6-10 /hpf (0-5) 07/20/24 21:05 Ur Squamous Epith Cells 11-20 /hpf (0-5) H 07/20/24 21:05 Amorphous Sediment Not Reportable 07/20/24 21:05 Urine Bacteria None seen /hpf (NONE) 07/20/24 21:05 Hyaline Casts 27.28 /lpf 07/20/24 21:05 Influenza A (PCR) Positive (Negative) 07/20/24 18:50 Influenza Type B (PCR) Negative (Negative) 07/20/24 18:50 RSV (PCR) Negative (Negative) 07/20/24 18:50 SARS-CoV-2 (PCR) Negative (Negative) 07/20/24 18:50 All radiology interpretation(s) finalized by discharge Discharge Plan Discharge Patient Disposition: Home Clinical Impression: Influenza A, Dehydration, Acute renal insufficiency Condition: Stable Prescriptions: New doxycycline hyclate 100 mg capsule 100 mg PO BID 7 Days Qty: 14 0RF dexamethasone 6 mg tablet 6 mg PO DAILY 5 Days Qty: 5 0RF ondansetron 4 mg tablet,disintegrating 4 mg PO Q8H PRN (Reason: nausea and vomiting) Qty: 10 0RF No Action amlodipine 10 mg tablet 10 mg PO DAILY Qty: 90 3RF levothyroxine [Synthroid] 150 mcg tablet 150 mcg PO DAILY mirabegron 25 mg tablet extended release 24 hr 25 mg PO DAILY Januvia 50 mg tablet 50 mg PO DAILY pregabalin 100 mg capsule 100 mg PO BID atorvastatin 20 mg tablet 20 mg PO DAILY 30 Days Qty: 30 0RF clopidogrel 75 mg tablet 75 mg PO DAILY 30 Days Qty: 30 0RF aspirin [Adult Aspirin Regimen] 81 mg tablet,delayed release (DR/EC) 81 mg PO DAILY 30 Days Qty: 60 0RF pantoprazole 40 mg tablet,delayed release (DR/EC) 40 mg PO BIDWM 30 Days Qty: 60 0RF leflunomide 20 mg tablet 20 mg PO DAILY Humira Pen 40 mg/0.8 mL pen injector kit 12 mg SUBCUT Q14D losartan 50 mg tablet 50 mg PO DAILY fluoxetine 40 mg capsule 40 mg PO DAILY trazodone 50 mg tablet 100 mg PO BEDTIME isosorbide mononitrate 30 mg tablet extended release 24 hr 30 mg PO DAILY oxycodone-acetaminophen 10-325 mg tablet 1 tab PO Q6H PRN (Reason: Pain) ranolazine 500 mg tablet extended release 12 hr 250 mg PO Q12H Discharge Orders: Discharge ED (Routine); Ordered 07/20/24 Ordered By: Darby Lopez Referrals: Xavier Jim [Primary Care Provider] - Discharge Diet: Advance as tolerated Discharge Activity: Increase activity as tolerated Patient Instructions: Influenza (ED), Opioid Safety, Pain Management Activity Restrictions/Additional Instructions: You need to follow-up with your doctor in the next few days. They should recheck your kidney function tests. Make sure they improving. Make sure you drink lots of fluids over the next few days. Thank you for choosing [facility] for your healthcare needs today. Please realize this is an emergency room and that we are providing you with a medical screening exam and this may not be complete and all inclusive of all the testing and or work up that you may need to determine your ailment or severity of your illness. You have been screened and evaluated and felt safe for discharge. Health conditions do change or evolve sometimes and as such it is important that you follow up with your Primary Doctor to be re checked, 3-5 days is a general good time frame for follow up. You are always welcome to return to the ED for re assessment if your symptoms are worsening or you have new concerns Print Language: Lao Coding Level of Care Code ED Guest Experience Representative for Kimberley Farooq
[2024-07-20 19:50] LABS: Basophils % 0.2 %; Eosinophils % 0.1 %; Hematocrit 39.4 % (36-47); Lymphocytes # 1.1 10^3/uL (0.8-4.8); Lymphocytes % 11.5 %; Mean Corpuscular HGB Conc 32.7 g/dL (30-55); Mean Corpuscular Hemoglobin 27.3 pg (27-33); Mean Corpuscular Volume 83.5 fl (85-98); Mean Platelet Volume 12.1 fL (7.4-10.4); Monocytes # 0.9 10^3/uL (0.2-0.9); Monocytes % 9.5 %; Neutrophils # 7.23 10^3/uL (1.8-7.7); Neutrophils % 77.6 %; Nucleated Red Blood Cells % 0 %; Platelet Count 144 10^3/cmm (157-399); Red Blood Count 4.72 10^6/uL (3.85-5.65); Red Cell Distribution Width 14.3 % (12.1-15.1); White Blood Count 9.32 10^3/uL (3.29-11.43)
[2024-07-20] MEDS: ondansetron 2 mg/ML SDV 2 mL 4 MG IVP (19:51)
[2024-07-20] MEDS: sodium chloride 0.9% 1,000 ML 999 ML IV ×2 (19:52→20:46)
[2024-07-20 19:54] LABS: Influenza A POSITIVE (Negative); Influenza B NEGATIVE (Negative); Respiratory Syncytial Virus Ce NEGATIVE (Negative); SARS-CoV-2 PCR NEGATIVE (Negative)
[2024-07-20 20:13] LABS: Alanine Aminotransferase 17 U/L (0-33); Albumin Level 4.2 g/dL (3.5-5.2); Alkaline Phosphatase 69 U/L (35-105); Anion Gap 22.4 (5-19); Aspartate Amino Transferase 34 U/L (0-32); Blood Urea Nitrogen 30 mg/dL (8-23); C Reactive Protein 137.6 mg/L (0.0-4.9); Calcium 9.2 mg/dL (8.5-10.5); Carbon Dioxide 23 mmol/L (22-29); Chloride 90 mmol/L (98-107); Creatinine Clr Calc Pharmacy 23.6438; Globulin 3.7 g/dL (1.3-4.6); Glucose 231 mg/dL (65-115); Lipase 16 U/L (13-60); Osmolality Calculated 288 mOsm/kg (285-295); Potassium 3.4 mmol/L (3.5-5.1); Sodium 132 mmol/L (136-145); Total Bilirubin 0.7 mg/dL (0.15-1.2); Total Protein 7.9 g/dL (6.6-8.7)
[2024-07-20 20:14] LABS: Lactic Sepsis W/Reflex 1.9 mmol/L (0.5-2.2)
[2024-07-20] MEDS: HYDROmorphone 0.5 MG/0.5 ML INJ 1 MG IVP (20:45)
[2024-07-20 21:34] LABS: Bilirubin Urine Negative (Negative); Blood Urine 1+ (Negative); Glucose Urine UA 3+ (Normal); Ketones Urine 1+ (Negative); Leukocyte Esterase Urine Trace (Negative); Nitrate Urine Negative (Negative); Protein Urine 2+ (Negative); Specific Gravity, Urine 1.023 (1.005-1.030); Urine Appearance Cloudy (CLEAR); Urine Color Dark Yellow (Yellow)
[2024-07-20 21:36] LABS: Add Urine Microscopic? YES; Bacteria Urine None Seen /hpf; Hyaline Casts Urine 27.28 /lpf; RBC Urine 0-2 /hpf (0-2)
[2024-07-20] MEDS: doxycycline 100 MG in sodium chloride 0.9% (plus) 100 ML IV (21:49)
[2024-07-20 21:59] LABS: UA Slide Review UA Slide Review Perf
[2024-07-20 22:00] LABS: Add Urine Culture? No
[2024-07-20] MEDS: dexamethasone 10 mg/mL INJ IVP (22:37)
== END 2024-07-20 22:57 | disposition home or self-care (01) ==
PROVIDERS: Emergency Medicine; Emergency Provider Emergency Medicine; PCP Family Medicine
DX: J10.1 Influenza due to other identified influenza virus with other respiratory manifestations (principal); E86.0 Dehydration; Z11.52 Encounter for screening for COVID-19; N28.9 Disorder of kidney and ureter, unspecified; Z79.82 Long term (current) use of aspirin; Z87.891 Personal history of nicotine dependence; I25.10 Atherosclerotic heart disease of native coronary artery without angina pectoris; E11.9 Type 2 diabetes mellitus without complications; I10 Essential (primary) hypertension
CPT/HCPCS: 36415; 71045; 80053; 81001; 83605; 83690; 84145; 85025; 86140; 87040; 87637; 96361; 96374; 96375; 99284; J1100; J1171; J2405; J3490; J7030

== ENCOUNTER 2024-09-10 07:33 | Outpatient (CLI) | payer MEDICARE, OTHER, SELFPAY ==
--- NOTE | 2024-09-10 08:00 | USCV_ITS ---
Bisi Anderson Age: 74 Gender: F : 1950 Exam Date: 09/10/2024 08:02 Ordering Phys: Crow Maldonado M.D ([email or web address]) Technologist: LASHAWN Exam Location: [facility] [place] Indication: Aortic Valve Stenosis BP: 154 / 82 HR: 76 Rhythm: Sinus Technical Quality: Adequate MEASUREMENTS (Male / Female) Normal Values 2D ECHO LV Diastolic Diameter PLAX 5.2 cm 4.2 - 5.9 / 3.9 - 5.3 cm IVS Diastolic Thickness 0.8 cm 0.6 - 1.0 / 0.6 - 0.9 cm IVS Systolic Thickness 1.5 cm LVPW Diastolic Thickness 1.4 cm 0.6 - 1.0 / 0.6 - 0.9 cm LVPW Systolic Thickness 2.0 cm LVOT Diameter 1.9 cm LV Ejection Fraction 2D Teich 54.2 % LV Ejection Fraction MOD 4C 67.1 % LV Ejection Fraction MOD 2C 47.9 % LV Ejection Fraction 2C AL 48.8 % LA Diameter 4.4 cm RA Systolic Volume 4C AL 20.0 ml RA Systolic Volume 4C MOD 19.6 ml Aorta at Sinotubular Diameter 2.6 cm IVC Diameter 1.5 cm M-MODE LA Ao Ratio MM 1.9 AV Cusp Separation MM 0.9 cm DOPPLER AV Peak Velocity 285.0 cm/s AV Area Cont Eq vti 1.5 cm squared AV Area Cont Eq pk 1.2 cm squared MV Peak Velocity 176.0 cm/s MV Area PHT 4.2 cm squared Mitral E to A Ratio 0.6 TR Peak Velocity 117.0 cm/s TR Peak Gradient 5.5 mmHg TV Peak E Velocity 63.0 cm/s PV Peak Velocity 117.0 cm/s FINDINGS Left Ventricle Left ventricle is normal in size. LV systolic function is normal with EF of 55-60%. No regional wall motion abnormalities. grade 1 diastolic dysfunction. Right Ventricle Normal in size and function. Right Atrium Normal in size Left Atrium Normal in size Mitral Valve Moderate mitral annular calcification. Mild mitral regurgitation Aortic Valve Aortic valve is thickened and calcified. Moderate aortic stenosis with aortic valve area 1.44 cm2 and mean gradient across aortic valve of 20 mmHg Tricuspid Valve Insufficient TR jet to calculate RVSP. Pulmonic Valve Not well visualized Pericardium Normal Aorta Normal in size IVC Appears to be normal CONCLUSIONS LV systolic function is normal with EF of 55 to 60%. Grade 1 diastolic dysfunction. Mild mitral regurgitation Moderate aortic stenosis Compared to prior echocardiogram from 2021, aortic stenosis has progressed and is moderate now. Crow Maldonado MD (Electronically Signed) Final Date: 01 October 2024 08:21 S
== END 2024-09-10 07:34 | disposition home or self-care (01) ==
PROVIDERS: PCP Family Medicine; Visit Provider Internal Medicine
DX: I35.0 Nonrheumatic aortic (valve) stenosis (principal); R93.1 Abnormal findings on diagnostic imaging of heart and coronary circulation; I34.81 Nonrheumatic mitral (valve) annulus calcification; I34.0 Nonrheumatic mitral (valve) insufficiency; I35.8 Other nonrheumatic aortic valve disorders
CPT/HCPCS: 93306

== ENCOUNTER → 2025-01-13 11:50 | Outpatient (BNVA) | payer MEDICARE, OTHER, SELFPAY | PROVIDERS: PCP Family Medicine; Visit Provider Internal Medicine | DX: I35.0 Nonrheumatic aortic (valve) stenosis (principal); I25.10 Atherosclerotic heart disease of native coronary artery without angina pectoris; Z87.891 Personal history of nicotine dependence; I10 Essential (primary) hypertension | CPT/HCPCS: 99214 ==